=== PATIENT | female | born 1955 | race Caucasian/White ===

== ENCOUNTER 2017-10-20 11:45 | Inpatient (IN) | payer MEDICAID ==
[2017-10-20] MEDS ORDERED: hydrALAZINE HCL 20 MG/ML 1 ML VIAL IVP STA (12:27)
--- NOTE | 2017-10-20 12:27 | ED ---
General Adult HPI - General Chief complaint: Shortness of Breath Stated complaint: SOB Time Seen by Provider: 10/20/17 12:00 Source: patient, RN notes reviewed Mode of arrival: ambulatory Limitations: no limitations - History of Present Illness Initial comments: This is a 8-year-old female with a past medical history significant for congestive heart failure and morbid obesity. Patient comes in today stating that over the last 4 weeks she's had more more difficult to breathing and worsening difficulty breathing when she lies flat. Patient states she can only walk 20 feet and then she's very short of breath. She states felt the baby edema in her legs gets more than normal. Patient denies any fever chills or cough. Patient denies chest pain or palpitations. Patient denies any dark or black or bloody stools. Patient denies headache patient denies lightheadedness dizziness or near-syncopal episode. Patient denies any abdominal pain patient denies any nausea vomiting diarrhea. - Related Data Home Medications Medication Instructions Recorded Confirmed Ergocalciferol (Vitamin D2) 50,000 unit PO FR 08/24/16 10/20/17 [Drisdol] Levothyroxine Sodium [Synthroid] 250 mcg PO DAILY 08/24/16 10/20/17 Naproxen Sodium [Aleve] 220 - 440 mg PO Q8H PRN 08/24/16 10/20/17 traMADol HCL [Ultram] 50 mg PO BID PRN 08/24/16 10/20/17 Valsartan/Hydrochlorothiazide 1 tab PO DAILY 10/20/17 10/20/17 [Valsartan-Hctz 320-25 mg Tab] Allergies Allergy/AdvReac Type Severity Reaction Status Date / Time Beta-Blockers Allergy Dyspnea Verified 10/20/17 13:40 (Beta-Adrenergic Bloc codeine Allergy Nausea & Verified 10/20/17 13:40 Vomiting Iodine and Iodide Containing Allergy Rash/Hives Verified 10/20/17 13:40 Produc Milk Containing Products Allergy Unknown Verified 10/20/17 13:40 soy Allergy Unknown Verified 10/20/17 13:40 tomato Allergy Itching Verified 10/20/17 13:40 wheat Allergy Swelling Verified 10/20/17 13:40 Review of Systems ROS Statement: Those systems with pertinent positive or pertinent negative responses have been documented in the HPI. ROS Other: All systems not noted in ROS Statement are negative. Past Medical History Past Medical History: Asthma, Heart Failure, Hypertension, Thyroid Disorder Additional Past Medical History / Comment(s): svt ef 45%, obesity History of Any Multi-Drug Resistant Organisms: None Reported Past Surgical History: Tonsillectomy Past Psychological History: No Psychological Hx Reported Smoking Status: Never smoker Past Alcohol Use History: None Reported Past Drug Use History: None Reported General Exam - General Exam Comments Initial Comments: GENERAL: Patient is well-developed and well-nourished. Patient is nontoxic and well- hydrated and is in mild distress. ENT: Neck is soft and supple. No significant lymphadenopathy is noted. Oropharynx is clear. Moist mucous membranes. Neck has full range of motion without eliciting any pain. EYES: The sclera were anicteric and conjunctiva were pink and moist. Extraocular movements were intact and pupils were equal round and reactive to light. Eyelids were unremarkable. PULMONARY: Decreased breath sounds left base CARDIOVASCULAR: There is a regular rate and rhythm without any murmurs gallops or rubs. ABDOMEN: Soft and nontender with normal bowel sounds. No palpable organomegaly was noted. There is no palpable pulsatile mass. SKIN: Skin is clear with no lesions or rashes and otherwise unremarkable. NEUROLOGIC: Patient is alert and oriented x3. Cranial nerves II through XII are grossly intact. Motor and sensory are also intact. Normal speech, volume and content. Symmetrical smile. MUSCULOSKELETAL: Normal extremities with adequate strength and full range of motion. 1+ edema tenderness. LYMPHATICS: No significant lymphadenopathy is noted PSYCHIATRIC: Normal psychiatric evaluation. Limitations: no limitations Course Vital Signs 10/20/17 10/20/17 10/20/17 12:02 12:29 12:42 Temperature 98.6 F Pulse Rate 107 H 95 96 Respiratory 24 21 24 Rate Blood Pressure 208/111 210/92 210/92 O2 Sat by Pulse 91 L 93 L 93 L Oximetry 10/20/17 13:30 Temperature Pulse Rate 96 Respiratory 18 Rate Blood Pressure 161/70 O2 Sat by Pulse 98 Oximetry Medical Decision Making - Medical Decision Making EKG shows a normal sinus rhythm with occasional PVC at 90 bpm SD interval is 180 QRS 96 QT interval 370 QTC is 472. Patient's EKG shows no ST segment elevation or depression or T wave abnormalities are noted. Chest x-ray shows pulmonary edema. I gave the patient Lasix and Nitropaste. I spoke with Dr. Montes he agreed to admit the patient admitted the patient I wrote admitting orders to continue the Lasix Nitropaste and consult cardiology. - Lab Data Result diagrams: 10/20/17 12:41 10/20/17 12:41 Lab Results 10/20/17 10/20/17 10/20/17 Range/Units 12:41 12:41 12:41 WBC 11.9 H (3.8-10.6) k/uL RBC 5.43 H (3.80-5.40) m/uL Hgb 15.7 (11.4-16.0) gm/dL Hct 49.4 H (34.0-46.0) % MCV 90.9 (80.0-100.0) fL MCH 28.9 (25.0-35.0) pg MCHC 31.8 (31.0-37.0) g/dL RDW 16.4 H (11.5-15.5) % Plt Count 242 (150-450) k/uL Neutrophils % 78 % Lymphocytes % 11 % Monocytes % 4 % Eosinophils % 5 % Basophils % 1 % Neutrophils # 9.3 H (1.3-7.7) k/uL Lymphocytes # 1.4 (1.0-4.8) k/uL Monocytes # 0.4 (0-1.0) k/uL Eosinophils # 0.6 (0-0.7) k/uL Basophils # 0.1 (0-0.2) k/uL Hypochromasia Slight Anisocytosis Slight PT (9.0-12.0) sec INR (<1.2) APTT (22.0-30.0) sec D-Dimer (<0.60) mg/L FEU Sodium 143 (137-145) mmol/L Potassium 4.7 (3.5-5.1) mmol/L Chloride 98 (98-107) mmol/L Carbon Dioxide 36 H (22-30) mmol/L Anion Gap 9 mmol/L BUN 21 H (7-17) mg/dL Creatinine 0.90 (0.52-1.04) mg/dL Est GFR (MDRD) Af Amer >60 (>60 ml/min/1.73 sqM) Est GFR (MDRD) Non-Af >60 (>60 ml/min/1.73 sqM) Glucose 92 (74-99) mg/dL Calcium 9.3 (8.4-10.2) mg/dL Magnesium 2.1 (1.6-2.3) mg/dL Total Bilirubin 1.3 (0.2-1.3) mg/dL AST 30 (14-36) U/L ALT 43 (9-52) U/L Alkaline Phosphatase 62 (38-126) U/L Total Creatine Kinase 147 H (30-135) U/L CK-MB (CK-2) 2.2 (0.0-2.4) ng/mL CK-MB (CK-2) Rel Index 1.5 Troponin I 0.042 H* (0.000-0.034) ng/mL NT-Pro-B Natriuret Pep pg/mL Total Protein 6.6 (6.3-8.2) g/dL Albumin 3.9 (3.5-5.0) g/dL 10/20/17 10/20/17 Range/Units 12:41 12:41 WBC (3.8-10.6) k/uL RBC (3.80-5.40) m/uL Hgb (11.4-16.0) gm/dL Hct (34.0-46.0) % MCV (80.0-100.0) fL MCH (25.0-35.0) pg MCHC (31.0-37.0) g/dL RDW (11.5-15.5) % Plt Count (150-450) k/uL Neutrophils % % Lymphocytes % % Monocytes % % Eosinophils % % Basophils % % Neutrophils # (1.3-7.7) k/uL Lymphocytes # (1.0-4.8) k/uL Monocytes # (0-1.0) k/uL Eosinophils # (0-0.7) k/uL Basophils # (0-0.2) k/uL Hypochromasia Anisocytosis PT 10.7 (9.0-12.0) sec INR 1.1 (<1.2) APTT 25.1 (22.0-30.0) sec D-Dimer 0.45 (<0.60) mg/L FEU Sodium (137-145) mmol/L Potassium (3.5-5.1) mmol/L Chloride (98-107) mmol/L Carbon Dioxide (22-30) mmol/L Anion Gap mmol/L BUN (7-17) mg/dL Creatinine (0.52-1.04) mg/dL Est GFR (MDRD) Af Amer (>60 ml/min/1.73 sqM) Est GFR (MDRD) Non-Af (>60 ml/min/1.73 sqM) Glucose (74-99) mg/dL Calcium (8.4-10.2) mg/dL Magnesium (1.6-2.3) mg/dL Total Bilirubin (0.2-1.3) mg/dL AST (14-36) U/L ALT (9-52) U/L Alkaline Phosphatase (38-126) U/L Total Creatine Kinase (30-135) U/L CK-MB (CK-2) (0.0-2.4) ng/mL CK-MB (CK-2) Rel Index Troponin I (0.000-0.034) ng/mL NT-Pro-B Natriuret Pep 692 pg/mL Total Protein (6.3-8.2) g/dL Albumin (3.5-5.0) g/dL Critical Care Time Critical Care Time: Yes Total Critical Care Time: 35 Disposition Clinical Impression: Acute pulmonary edema Disposition: ADMITTED IP TO THIS HOSP Referrals: Bull Montes MD [Primary Care Provider] - 1-2 days Time of Disposition: 14:11
[2017-10-20 12:56] LABS: Anisocytosis Slight; Basophils # (A) 0.1 k/uL (0-0.2); Basophils % (A) 1 %; Eosinophils # (A) 0.6 k/uL (0-0.7); Eosinophils % (A) 5 %; HCT 49.4 % (34.0-46.0); HGB 15.7 gm/dL (11.4-16.0); Hypochromasia Slight; Lymphocytes # (A) 1.4 k/uL (1.0-4.8); Lymphocytes % (A) 11 %; MCH 28.9 pg (25.0-35.0); MCHC 31.8 g/dL (31.0-37.0); MCV 90.9 fL (80.0-100.0); Mean Platelet Volume 8.4; Monocytes # (A) 0.4 k/uL (0-1.0); Monocytes % (A) 4 %; Neutrophils # (A) 9.3 k/uL (1.3-7.7); Neutrophils % (A) 78 %; Platelet Count 242 k/uL (150-450); RBC 5.43 m/uL (3.80-5.40); RDW 16.4 % (11.5-15.5); WBC 11.9 k/uL (3.8-10.6)
[2017-10-20 13:03] LABS: ALT 43 U/L (9-52); AST 30 U/L (14-36); Albumin 3.9 g/dL (3.5-5.0); Alkaline Phosphatase 62 U/L (38-126); Anion Gap 9 mmol/L; Blood Urea Nitrogen 21 mg/dL (7-17); Calcium 9.3 mg/dL (8.4-10.2); Carbon Dioxide 36 mmol/L (22-30); Chloride 98 mmol/L (98-107); Glucose 92 mg/dL (74-99); Magnesium 2.1 mg/dL (1.6-2.3); Sodium 143 mmol/L (137-145); Total Bilirubin 1.3 mg/dL (0.2-1.3); Total Protein 6.6 g/dL (6.3-8.2)
[2017-10-20 13:17] LABS: Potassium 4.7 mmol/L (3.5-5.1)
--- NOTE | 2017-10-20 13:18 | XR ---
EXAMINATION TYPE: XR chest 2V DATE OF EXAM: 10/20/2017 COMPARISON: Chest x-ray August 24, 2016 HISTORY: History of hypertension with shortness of breath TECHNIQUE: Frontal and lateral views of the chest are obtained. FINDINGS: There is no focal air space opacity, pleural effusion, or pneumothorax seen. Pierre B disha es in the periphery are noted. The cardiac silhouette size is enlarged with mild central vascular con gestion. The osseous structures are intact. IMPRESSION: Suspect CHF exacerbation as there is cardiomegaly with mild central vascular congestion and interstitial edema felt present on current study.
[2017-10-20 13:33] LABS: Creatine Kinase MB 2.2 ng/mL (0.0-2.4)
[2017-10-20 13:34] LABS: D-Dimer 0.45 mg/L FEU (<0.60); INR 1.1 (<1.2); Partial Thromboplastin Time 25.1 sec (22.0-30.0); Prothrombin Time 10.7 sec (9.0-12.0)
[2017-10-20 13:40] LABS: Troponin I 0.042 ng/mL (0.000-0.034)
[2017-10-20] MEDS ORDERED: FUROSEMIDE 10 MG/ML 10 ML VIAL IV STA (14:00)
[2017-10-20] MEDS ORDERED: NITROGLYCERIN OINT 1 INCH/GM PACKET TOPICAL STA (14:00)
[2017-10-20] MEDS: NITROGLYCERIN OINT 1 INCH/GM PACKET TOPICAL SCH ×2 (16:55→23:52)
[2017-10-20] MEDS ORDERED: traMADol 50 MG TAB PO PRN (18:01)
[2017-10-20] MEDS: FUROSEMIDE 10 MG/ML 4 ML VIAL IV SCH (23:52)
[2017-10-21] MEDS: LEVOTHYROXINE 125 MCG TAB PO SCH (06:16)
--- NOTE | 2017-10-21 08:33 | P.CRDCN ---
History of Present Illness Consult date: 10/21/17 Chief complaint: Shortness of breath History of present illness: This is a pleasant 62-year-old female patient with a past medical history significant for obesity, hypertension, thyroid disorder, was referred to the hospital by her primary care physician for further evaluation and management of congestive heart failure. She was in her usual state of health until about 4 weeks ago when she started experiencing progressive exertional dyspnea. Initially the shortness of breath was with extreme exertion but over the last several days she was short of breath even with minimal activities like washing her face. Also she developed orthopnea. She did not have any symptoms of chest pain or chest discomfort. She did have severe bilateral lower extremities nonpitting edema as well as. The patient is stated that she gained significant amount of weight and approximately she can't about 50 pounds since June. She was told in the past that she has congestive heart failure. No coronary artery disease. Also she was told in the past that she has an SVT and she was seen in the past around 15 years ago by a identity access management architect but since then she did not follow with anybody. In terms of workup, the chest x-ray showed findings consistent with pulmonary vascular congestion and congestive heart failure. The EKG showed sinus rhythm with poor R-wave progression and without any acute ischemic changes. The BNP came in to be around 600. The patient was started on Lasix IV yesterday. I will continue the Lasix IV at this point and continue monitor the kidney function and electrolytes. I'll obtain an echocardiogram was Doppler. Obtain TSH. And follow-up with the patient. Past Medical History Past Medical History: Asthma, Hypertension, Thyroid Disorder Additional Past Medical History / Comment(s): Pt states she has swollen feet and SOB on occasions lately, recently on ABX for tooth infection, bronchospasms , SVT, pt denies hx of CHF, lumbar spinal stenosis, chronic low back pain, arthritis especially in knees, hypothyroidism. History of Any Multi-Drug Resistant Organisms: None Reported Past Surgical History: Tonsillectomy Past Anesthesia/Blood Transfusion Reactions: No Reported Reaction Smoking Status: Never smoker - Past Family History Father Family Medical History: Coronary Artery Disease (CAD), Myocardial Infarction (ID ) Additional Family Medical History / Comment(s): Father at the age of 57yrs from a ID. He had 4 sisters who of MIs in their 60s. Mother Family Medical History: Congestive Heart Failure (CHF), CVA/TIA, Myocardial Infarction (ID) Additional Family Medical History / Comment(s): Mother had cardiac problems. She of CHF/ID at the age of 87yrs. She had several siblings who had CVAs. Medications and Allergies Home Medications Medication Instructions Recorded Confirmed Type Ergocalciferol (Vitamin D2) 50,000 unit PO FR 08/24/16 10/20/17 History [Drisdol] Levothyroxine Sodium [Synthroid] 250 mcg PO DAILY 08/24/16 10/20/17 History Naproxen Sodium [Aleve] 220 - 440 mg PO Q8H PRN 08/24/16 10/20/17 History traMADol HCL [Ultram] 50 mg PO BID PRN 08/24/16 10/20/17 History Valsartan/Hydrochlorothiazide 1 tab PO DAILY 10/20/17 10/20/17 History [Valsartan-Hctz 320-25 mg Tab] Allergies Allergy/AdvReac Type Severity Reaction Status Date / Time Beta-Blockers Allergy Dyspnea Verified 10/20/17 13:40 (Beta-Adrenergic Bloc codeine Allergy Nausea & Verified 10/20/17 13:40 Vomiting Iodine and Iodide Containing Allergy Rash/Hives Verified 10/20/17 13:40 Produc Milk Containing Products Allergy Unknown Verified 10/20/17 13:40 soy Allergy Unknown Verified 10/20/17 13:40 tomato Allergy Itching Verified 10/20/17 13:40 wheat Allergy Swelling Verified 10/20/17 13:40 Physical Exam Vitals: Vital Signs Temp Pulse Pulse Resp BP BP Pulse Ox 10/21/17 08:00 98.4 F 97 20 124/73 91 L 10/21/17 04:30 93 L 10/21/17 04:00 103 H 18 126/74 76 L 10/21/17 01:03 96 10/21/17 01:00 94 L 10/21/17 00:30 92 L 10/21/17 00:00 97.6 F 76 18 140/79 82 L 10/20/17 20:00 96.2 F L 99 18 146/99 91 L 10/20/17 16:00 97.7 F 95 18 126/71 93 L 10/20/17 13:30 96 18 161/70 98 10/20/17 12:42 96 24 210/92 93 L 10/20/17 12:29 95 21 210/92 93 L 10/20/17 12:02 98.6 F 107 H 24 208/111 91 L Intake and Output 10/20/17 10/21/17 10/21/17 22:59 06:59 14:59 Intake Total 418 Balance 418 Intake: Oral 418 Other: Voiding Method Toilet Toilet # Voids 1 Weight 181 kg - Constitutional General appearance: no acute distress - Respiratory Respiratory: bilateral: CTA, diminished - Cardiovascular Rhythm: regular Heart sounds: normal: S1, S2 Results 10/20/17 12:41 10/20/17 12:41 Cardiac Enzymes 10/20/17 10/20/17 Range/Units 12:41 12:41 AST 30 (14-36) U/L CK-MB (CK-2) 2.2 (0.0-2.4) ng/mL Troponin I 0.042 H* (0.000-0.034) ng/mL Coagulation 10/20/17 Range/Units 12:41 PT 10.7 (9.0-12.0) sec APTT 25.1 (22.0-30.0) sec CBC 10/20/17 Range/Units 12:41 WBC 11.9 H (3.8-10.6) k/uL RBC 5.43 H (3.80-5.40) m/uL Hgb 15.7 (11.4-16.0) gm/dL Hct 49.4 H (34.0-46.0) % Plt Count 242 (150-450) k/uL Comprehensive Metabolic Panel 10/20/17 Range/Units 12:41 Sodium 143 (137-145) mmol/L Potassium 4.7 (3.5-5.1) mmol/L Chloride 98 (98-107) mmol/L Carbon Dioxide 36 H (22-30) mmol/L BUN 21 H (7-17) mg/dL Creatinine 0.90 (0.52-1.04) mg/dL Glucose 92 (74-99) mg/dL Calcium 9.3 (8.4-10.2) mg/dL AST 30 (14-36) U/L ALT 43 (9-52) U/L Alkaline Phosphatase 62 (38-126) U/L Total Protein 6.6 (6.3-8.2) g/dL Albumin 3.9 (3.5-5.0) g/dL Current Medications Generic Name Dose Route Start Last Admin Trade Name Jl PRN Reason Stop Dose Admin Ergocalciferol 50,000 unit 10/22/17 12:00 Vitamin D2 PO Fr@1200 MARIZA Furosemide 40 mg 10/21/17 00:00 10/20/17 23:52 Lasix IV 40 mg Q8HR MARIZA Administration Levothyroxine Sodium 250 mcg 10/21/17 06:30 10/21/17 06:16 Synthroid PO 250 mcg 0630 MARIZA Administration Nitroglycerin 1 inch 10/20/17 18:00 10/20/17 23:52 Nitro-Bid Oint TOPICAL 1 inch QID MARIZA Administration Tramadol HCl 50 mg 10/20/17 18:01 Ultram PO BID PRN Pain Intake and Output 10/20/17 10/21/17 10/21/17 22:59 06:59 14:59 Intake Total 418 Balance 418 Intake: Oral 418 Other: Voiding Method Toilet Toilet # Voids 1 Weight 181 kg 10/20/17 12:41 10/20/17 12:41 Assessment and Plan Assessment: Assessment #1 congestive heart failure exacerbation and known if it's due to systolic or diastolic dysfunction. #2 significant weight gain which could be related to CHF or thyroid disorder #3 hypo-thyroidism and the patient is on thyroid replacement therapy. #4 systemic hypertension #5 morbid obesity Plan #1 continue the Lasix IV #2 monitor the kidney function and electrolytes #3 monitor the weight #4 obtain an echocardiogram was Doppler #5 check the TSH #6 follow-up with the patient. Thank you for allowing us participate in the care of this patient.
[2017-10-21] MEDS: NITROGLYCERIN OINT 1 INCH/GM PACKET TOPICAL SCH ×4 (09:43→21:07)
[2017-10-21] MEDS: FUROSEMIDE 10 MG/ML 4 ML VIAL IV SCH ×3 (09:43→23:37)
--- NOTE | 2017-10-21 11:13 | P.HPIM ---
History of Present Illness 62-year-old female presented to family physician with complaints of 4 weeks of increasing shortness of breath dyspnea on exertion positive fluid weight gain patient was sent to the emergency room evaluated and admitted for acute pulmonary edema. History of asthma just occasional inhaler use. History of heart failure unknown systolic or diastolic. History of hypertension and hypothyroidism Review of Systems Constitutional: Reports fatigue, Reports weight gain Cardiovascular: Reports dyspnea on exertion, Reports leg edema Past Medical History Past Medical History: Asthma, Hypertension, Thyroid Disorder Additional Past Medical History / Comment(s): Pt states she has swollen feet and SOB on occasions lately, recently on ABX for tooth infection, bronchospasms , SVT, pt denies hx of CHF, lumbar spinal stenosis, chronic low back pain, arthritis especially in knees, hypothyroidism. History of Any Multi-Drug Resistant Organisms: None Reported Past Surgical History: Tonsillectomy Past Anesthesia/Blood Transfusion Reactions: No Reported Reaction Smoking Status: Never smoker - Past Family History Father Family Medical History: Coronary Artery Disease (CAD), Myocardial Infarction (MO ) Additional Family Medical History / Comment(s): Father at the age of 57yrs from a MO. He had 4 sisters who of MIs in their 60s. Mother Family Medical History: Congestive Heart Failure (CHF), CVA/TIA, Myocardial Infarction (MO) Additional Family Medical History / Comment(s): Mother had cardiac problems. She of CHF/MO at the age of 87yrs. She had several siblings who had CVAs. Medications and Allergies Home Medications Medication Instructions Recorded Confirmed Type Ergocalciferol (Vitamin D2) 50,000 unit PO FR 08/24/16 10/20/17 History [Drisdol] Levothyroxine Sodium [Synthroid] 250 mcg PO DAILY 08/24/16 10/20/17 History Naproxen Sodium [Aleve] 220 - 440 mg PO Q8H PRN 08/24/16 10/20/17 History traMADol HCL [Ultram] 50 mg PO BID PRN 08/24/16 10/20/17 History Valsartan/Hydrochlorothiazide 1 tab PO DAILY 10/20/17 10/20/17 History [Valsartan-Hctz 320-25 mg Tab] Allergies Allergy/AdvReac Type Severity Reaction Status Date / Time Beta-Blockers Allergy Dyspnea Verified 01/03/18 13:40 (Beta-Adrenergic Bloc codeine Allergy Nausea & Verified 10/20/17 13:40 Vomiting Iodine and Iodide Containing Allergy Rash/Hives Verified 10/20/17 13:40 Produc Milk Containing Products Allergy Unknown Verified 10/20/17 13:40 soy Allergy Unknown Verified 10/20/17 13:40 tomato Allergy Itching Verified 10/20/17 13:40 wheat Allergy Swelling Verified 10/20/17 13:40 Physical Exam Vitals: Vital Signs Temp Pulse Pulse Resp BP BP Pulse Ox 10/21/17 08:00 98.4 F 97 20 124/73 91 L 10/21/17 04:30 93 L 10/21/17 04:00 103 H 18 126/74 76 L 10/21/17 01:03 96 10/21/17 01:00 94 L 10/21/17 00:30 92 L 10/21/17 00:00 97.6 F 76 18 140/79 82 L 10/20/17 20:00 96.2 F L 99 18 146/99 91 L 10/20/17 16:00 97.7 F 95 18 126/71 93 L 10/20/17 13:30 96 18 161/70 98 10/20/17 12:42 96 24 210/92 93 L 10/20/17 12:29 95 21 210/92 93 L 10/20/17 12:02 98.6 F 107 H 24 208/111 91 L Intake and Output 10/20/17 10/21/17 10/21/17 22:59 06:59 14:59 Intake Total 418 180 Output Total 0 Balance 418 180 Intake: Oral 418 180 Output: Urine 0 Other: Voiding Method Toilet Toilet Toilet # Voids 1 Weight 181 kg - Constitutional General appearance: morbidly obese - EENT Eyes: PERRLA Ears: bilateral: normal - Neck Neck: normal ROM - Respiratory Respiratory: bilateral: diminished - Cardiovascular Rhythm: regular leg Peripheral Edema: bilateral: 4+ - Gastrointestinal General gastrointestinal: soft - Integumentary Integumentary: normal - Neurologic Neurologic: CNII-XII intact - Musculoskeletal Musculoskeletal: generalized weakness - Psychiatric Psychiatric: A&O x's 3, appropriate affect, intact judgment & insight Results CBC & Chem 7: 10/20/17 12:41 10/20/17 12:41 Labs: Abnormal Lab Results - Last 24 Hours (Table) 10/20/17 10/20/17 10/20/17 Range/Units 12:41 12:41 12:41 WBC 11.9 H (3.8-10.6) k/uL RBC 5.43 H (3.80-5.40) m/uL Hct 49.4 H (34.0-46.0) % RDW 16.4 H (11.5-15.5) % Neutrophils # 9.3 H (1.3-7.7) k/uL Carbon Dioxide 36 H (22-30) mmol/L BUN 21 H (7-17) mg/dL Total Creatine Kinase 147 H (30-135) U/L Troponin I 0.042 H* (0.000-0.034) ng/mL Chest x-ray: report reviewed Thrombosis Risk Factor Assmnt - Choose All That Apply Any of the Below Risk Factors Present?: Yes Each Factor Represents 1 point: Age 41-60 years, Heart failure (<1month), Obesity (BMI >25), Swollen legs (current) Other Risk Factors: No Other congenital or acquired thrombophilia - If yes, enter type in comment: No Thrombosis Risk Factor Assessment Total Risk Factor Score: 4 Thrombosis Risk Factor Assessment Level: Moderate Risk Assessment and Plan Plan: Assessment Acute pulmonary edema Morbid obesity BMI 57.3 Asthma stable Congestive heart failure awaiting echo for diagnosis hypertension Hypothyroidism Plan Cardiology consultation continues on the Lasix Awaiting Results of the 2-D echo
[2017-10-21 16:40] VITALS: BMI 57.2
[2017-10-21 19:15] LABS: Magnesium 2.1 mg/dL (1.6-2.3)
[2017-10-22] MEDS: LEVOTHYROXINE 125 MCG TAB PO SCH (06:21)
[2017-10-22] MEDS: NITROGLYCERIN OINT 1 INCH/GM PACKET TOPICAL SCH ×4 (08:43→21:00)
[2017-10-22] MEDS: FUROSEMIDE 10 MG/ML 4 ML VIAL IV SCH ×3 (08:43→23:04)
[2017-10-22] MEDS ORDERED: ERGOCALCIFEROL 50,000 UNIT CAP PO SCH (12:00)
--- NOTE | 2017-10-22 15:45 | P.PN ---
Subjective Progress Note Date: 10/22/17 Principal diagnosis: Shortness of breath and weight gain This is a pleasant 62-year-old female patient with a past medical history significant for obesity, hypertension, thyroid disorder, was referred to the hospital by her primary care physician for further evaluation and management of congestive heart failure. She was in her usual state of health until about 4 weeks ago when she started experiencing progressive exertional dyspnea. Initially the shortness of breath was with extreme exertion but over the last several days she was short of breath even with minimal activities like washing her face. Also she developed orthopnea. She did not have any symptoms of chest pain or chest discomfort. She did have severe bilateral lower extremities nonpitting edema as well as. The patient is stated that she gained significant amount of weight and approximately she can't about 50 pounds since June. She was told in the past that she has congestive heart failure. No coronary artery disease. Also she was told in the past that she has an SVT and she was seen in the past around 15 years ago by a metal treater but since then she did not follow with anybody.In terms of workup, the chest x-ray showed findings consistent with pulmonary vascular congestion and congestive heart failure. The EKG showed sinus rhythm with poor R-wave progression and without any acute ischemic changes. The BNP came in to be around 600. The patient was started on Lasix IV yesterday.I will continue the Lasix IV at this point and continue monitor the kidney function and electrolytes. I'll obtain an echocardiogram was Doppler. Obtain TSH. And follow-up with the patient. 10/22/2017 Patient seen and examined this morning, weight is down 2 kg today. TSH level came back to be 25.7. Blood pressure 116/90, heart rate in the 90s, 90% on room air. Echocardiogram with Doppler study remains pending. Patient does state she is feeling mildly better today. Objective - Vital Signs Vital signs: Vital Signs Temp 99.4 F 10/22/17 11:53 Pulse 97 10/22/17 11:53 Resp 20 10/22/17 11:53 BP 116/90 10/22/17 11:53 Pulse Ox 90 L 10/22/17 11:53 Intake & Output 10/21/17 10/22/17 10/22/17 18:59 06:59 18:59 Intake Total 420 10 250 Output Total 0 Balance 420 10 250 Weight 180.3 kg 178.5 kg Intake: IV 10 10 0.9 10 10 Oral 420 240 Output: Urine 0 Other: Voiding Method Toilet Toilet Toilet # Voids 3 1 - Exam PHYSICAL EXAMINATION: HEENT: Head is atraumatic, normocephalic. Pupils equal, round. Neck is supple. There is no elevated jugular venous pressure. HEART EXAMINATION: Heart S1, S2 normal. No murmur or gallop heard. CHEST EXAMINATION: Lungs are clear to auscultation and precussion. No chest wall tenderness is noted on palpation or with deep breathing. ABDOMEN: Soft, ,nontender. Bowel sounds are heard. No organomegaly noted. EXTREMITIES: 2+ peripheral pulses with trace evidence of peripheral edema and no calf tenderness noted. NEUROLOGIC patient is awake, alert and oriented -3. . - Labs CBC & Chem 7: 10/20/17 12:41 10/21/17 18:38 Assessment and Plan Plan: Assessment #1 congestive heart failure exacerbation and known if it's due to systolic or diastolic dysfunction. #2 significant weight gain which could be related to CHF or thyroid disorder #3 hypo-thyroidism and the patient is on thyroid replacement therapy. #4 systemic hypertension #5 morbid obesity Plan From cardiology's perspective, we still await results of echocardiogram with Doppler study which we will review. We recommend to continue current dose of IV Lasix, monitoring intake and output along with daily weights. We will also recommend increasing the dose of Synthroid, TSH level was in the range of 25. DNP note has been reviewed, I agree with a documented findings and plan of care. Patient was seen and examined.
--- NOTE | 2017-10-22 16:30 | P.CNPUL ---
History of Present Illness Consult date: 10/22/17 Reason for consult: dyspnea History of present illness: This is a 62-year-old female patient, morbidly obese, with known history of hypothyroidism, we'll came in to the hospital because of worsening shortness of breath and concern of fluid overload. The patient apparently has been progressive getting worse over the past 4-6 weeks. She started experiencing worsening shortness of breath special with exertion. No cervical or orthopnea or paroxysmal nocturnal dyspnea. She also described worsening in lower extremity edema. No chest pain. No cough or sputum production pedal palpitations. No angina. No pleurisy. No hemoptysis. She has chronic history of hypothyroidism and recently she got switched from Synthroid to levothyroxine at a dose of 250 g daily basis. Her TSH during this current admission was found to be quite elevated at 25. Clinically, the patient is quite sluggish. She feels tired all the time pH she feels sleepy and weak and tired and fatigued during the day. She also reports obvious and typical clinical features of obstructive sleep apnea with snoring and witnessed apneas and excessive hypersomnia and sleepiness during the day. Her proBNP level is 600. She has had previous history of dilated cardiomyopathy with no evidence of any pharmacologically induced left ventricular myocardial ischemia. The echocardiogram that was done at the same time showed left ventricular function to be mildly impaired with an ejection fraction 45-50%. The patient had moderate concentric left ventricular hypertrophy. She was also having short runs of SVT. Trops are at 0.042and the ECG is showing normal sinus rhythm with premature ventricular complexes. Review of Systems Constitutional: Reports chronic pain, Reports fatigue, Reports lethargy, Reports weakness, Reports weight gain Eyes: denies blurred vision, denies bulging eye, denies decreased vision Ears: deny: decreased hearing, ear discharge, earache Ears, nose, mouth and throat: Denies headache, Denies sore throat Cardiovascular: Reports decreased exercise tolerance, Reports dyspnea on exertion, Reports shortness of breath Respiratory: Reports dyspnea, Reports sleep apnea Gastrointestinal: Reports constipation Genitourinary: Denies dysuria, Denies hematuria Musculoskeletal: Denies myalgias Musculoskeletal: bilateral: ankle swelling, absent: ankle pain, ankle stiffness Integumentary: Denies pruritus, Denies rash Neurological: Denies numbness, Denies weakness Psychiatric: Denies anxiety, Denies depression Endocrine: Reports cold intolerance, Reports fatigue, Reports weight change Hematologic/Lymphatic: Reports as per HPI Allergic/Immunologic: Reports as per HPI Past Medical History Past Medical History: Asthma, Hypertension, Thyroid Disorder Additional Past Medical History / Comment(s): Mild intermittent bronchial asthma , SVT, mild CHF/dilated cardiomyopathy, spinal stenosis, chronic back pain, degenerative arthritis, hypothyroidism, morbid obesity History of Any Multi-Drug Resistant Organisms: None Reported Past Surgical History: Tonsillectomy Past Anesthesia/Blood Transfusion Reactions: No Reported Reaction Smoking Status: Never smoker - Past Family History Father Family Medical History: Coronary Artery Disease (CAD), Myocardial Infarction (ME ) Additional Family Medical History / Comment(s): Father at the age of 57yrs from a ME. He had 4 sisters who of MIs in their 60s. Mother Family Medical History: Congestive Heart Failure (CHF), CVA/TIA, Myocardial Infarction (ME) Additional Family Medical History / Comment(s): Mother had cardiac problems. She of CHF/ME at the age of 87yrs. She had several siblings who had CVAs. Medications and Allergies Home Medications Medication Instructions Recorded Confirmed Type Ergocalciferol (Vitamin D2) 50,000 unit PO FR 08/24/16 10/20/17 History [Drisdol] Levothyroxine Sodium [Synthroid] 250 mcg PO DAILY 08/24/16 10/20/17 History Naproxen Sodium [Aleve] 220 - 440 mg PO Q8H PRN 08/24/16 10/20/17 History traMADol HCL [Ultram] 50 mg PO BID PRN 08/24/16 10/20/17 History Valsartan/Hydrochlorothiazide 1 tab PO DAILY 10/20/17 10/20/17 History [Valsartan-Hctz 320-25 mg Tab] Allergies Allergy/AdvReac Type Severity Reaction Status Date / Time Beta-Blockers Allergy Dyspnea Verified 10/20/17 13:40 (Beta-Adrenergic Bloc codeine Allergy Nausea & Verified 10/20/17 13:40 Vomiting Iodine and Iodide Containing Allergy Rash/Hives Verified 10/20/17 13:40 Produc soy AdvReac Unknown Verified 10/21/17 14:28 Physical Exam Vitals: Vital Signs Temp Pulse Resp BP BP BP BP 10/22/17 16:07 01/05/18 15:40 98.4 F 93 20 134/72 10/22/17 11:53 99.4 F 97 20 116/90 10/22/17 08:00 98.4 F 101 H 20 114/61 136/100 155/105 10/22/17 04:00 97.6 F 109 H 20 114/68 10/22/17 00:00 97.0 F L 99 20 103/53 10/21/17 20:00 96.8 F L 95 20 119/77 Pulse Ox 10/22/17 16:07 93 L 10/22/17 15:40 91 L 10/22/17 11:53 90 L 10/22/17 08:00 85 L 10/22/17 04:00 90 L 10/22/17 00:00 93 L 10/21/17 20:00 93 L Intake and Output 10/22/17 10/22/17 10/22/17 06:59 14:59 22:59 Intake Total 10 250 10 Balance 10 250 10 Intake: IV 10 10 10 0.9 10 10 10 Oral 240 Other: Voiding Method Toilet Toilet # Voids 1 1 Weight 178.5 kg Morbidly obese, comfortable likely distress.Head exam was generally normal. There was no scleral icterus or corneal arcus. Mucous membranes were moist. Neck is supple and the patient has significant crowding of the posterior oropharynx with a Mallampati class IV.Lungs were clear to auscultation and percussion, and with normal diaphragmatic excursion. No wheezes or rales were noted. Breath sounds are diminished in lung bases bilaterally. No crackles. No wheezes.Cardiac exam revealed the PMI to be normally situated and sized. The rhythm was regular and no extrasystoles were noted during several minutes of auscultation. The first and second heart sounds were normal and physiologic splitting of the second heart sound was noted. There were no murmurs, rubs, clicks, or gallops. Abdomen is obese soft nontender and the patient's organs cannot be accurately palpated. There is no direct tenderness. No rebound tenderness. No guarding.Examination of the extremities revealed easily palpable radial, femoral and pedal pulses. There was no cyanosis, clubbing or edema. The patient has no pitting edema at this point. They may be some pretibial edema related to hypothyroidism. Neurologically the patient is awake and alert and is no focal logical deficits.Examination of the skin revealed no evidence of significant rashes, suspicious appearing nevi or other concerning lesions. Results - Laboratory Findings CBC and BMP: 10/20/17 12:41 10/21/17 18:38 PT/INR, D-dimer PT 10.7 sec (9.0-12.0) 10/20/17 12:41 INR 1.1 (<1.2) 10/20/17 12:41 D-Dimer 0.45 mg/L FEU (<0.60) 10/20/17 12:41 Abnormal lab findings: Abnormal Labs 10/20/17 10/20/17 10/20/17 12:41 12:41 12:41 WBC 11.9 H RBC 5.43 H Hct 49.4 H RDW 16.4 H Neutrophils # 9.3 H Carbon Dioxide 36 H BUN 21 H Total Creatine Kinase 147 H Troponin I 0.042 H* TSH 10/20/17 12:41 WBC RBC Hct RDW Neutrophils # Carbon Dioxide BUN Total Creatine Kinase Troponin I TSH 25.700 H - Diagnostic Findings Chest x-ray: image reviewed Assessment and Plan Plan: Assessment 1 progressive dyspnea. The patient shortness of breath is multifactorial. Noted the patient's been progressively getting weight and she is clinically and chemically hypothyroidism there may be a component of cardiomyopathy which could be also related to her underlying hypothyroidism. She will need further investigation. She has mild intermittent bronchial asthma which is currently inactive and stable. 2 morbid obesity with suspected obstructive sleep apnea on clinical grounds 3 hypertension 4 hypertensive heart disease 5 weight gain secondary to above 6 hypothyroidism and the patient is clinically and chemically hypothyroid Plan We'll need an echocardiogram. Will need diuresis. We'll need to increase her levothyroxine dose to 300 g on a daily basis. Monitor thyroid function test. Outpatient sleep study to rule out underlying obstructive sleep apnea. We'll continue to follow.
[2017-10-22 16:35] LABS: Blood Urea Nitrogen 20 mg/dL (7-17); Calcium 9.4 mg/dL (8.4-10.2); Chloride 90 mmol/L (98-107); Glucose 102 mg/dL (74-99); Potassium 4.2 mmol/L (3.5-5.1); Sodium 142 mmol/L (137-145)
[2017-10-22 16:41] LABS: Anion Gap 8 mmol/L
[2017-10-22 16:46] LABS: Carbon Dioxide 44 mmol/L (22-30)
--- NOTE | 2017-10-22 17:14 | ECHOF ---
Referral Reason:chf MEASUREMENTS -------- HEIGHT: 177.8 cm WEIGHT: 180.5 kg BP: 140/79 RVIDd: 3.6 cm (< 3.3) IVSd: 1.7 cm (0.6 - 1.1) LVIDd: 3.4 cm (3.9 - 5.3) LVPWd: 1.9 cm (0.6 - 1.1) EDV(Teich): 47 ml IVSs: 2.3 cm LVIDs: 2.8 cm LVPWs: 2.5 cm %IVS Thck: 37 % ESV(Teich): 31 ml EF(Teich): 34 % %FS: 16 % SV(Teich): 16 ml LA Diam: 3.6 cm (2.7 - 3.8) LVOT Diam: 2.3 cm LALs A4C: 5.8 cm LAAs A4C: 16.0 cm LAESV A-L A4C: 38 ml LAESV MOD A4C: 36 ml LALs A2C: 5.2 cm LAAs A2C: 13.6 cm LAESV A-L A2C: 30 ml LAESV MOD A2C: 29 ml LAESV(A-L): 36 ml LAESV Index (A-L): 12.75 ml/m HR_2Ch_Q: 14 bpm HR_4Ch_Q: 92 bpm LVVED_2Ch_Q: 83 ml LVVED_4Ch_Q: 136 ml LVVED_BiP_Q: 106 ml LVVES_2Ch_Q: 45 ml LVVES_4Ch_Q: 74 ml LVVES_BiP_Q: 57 ml LVEF_2Ch_Q: 45 % LVEF_4Ch_Q: 46 % LVEF_BiP_Q: 47 % LVSV_2Ch_Q: 38 ml LVSV_4Ch_Q: 62 ml LVSV_BiP_Q: 50 ml LVCO_2Ch_Q: 0.5 l/min LVCO_4Ch_Q: 5.7 l/min LVCO_BiP_Q: 0.7 l/min LVLs_2Ch_Q: 7.7 cm LVLs_4Ch_Q: 7.6 cm LVLd_2Ch_Q: 9.3 cm LVLd_4Ch_Q: 9.0 cm Ao Diam: 3.7 cm (2.0 - 3.7) AV Cusp: 2.2 cm (1.5 - 2.6) MV EXCURSION: 9.371 mm (> 18.000) MV EF SLOPE: 24 mm/s (70 - 150) EPSS: 0.5 cm MV E Bravo: 1.17 m/s MV DecT: 189 ms MV Dec [place]: 6.2 m/s MV A Bravo: 1.30 m/s MV E/A Ratio: 0.90 MV PHT: 55 ms E/E': 19.43 E': 0.06 m/s LVOT Vmax: 1.23 m/s LVOT maxP.07 mmHg LVOT Vmax: 1.25 m/s LVOT Vmean: 0.84 m/s LVOT maxP.25 mmHg LVOT meanP.22 mmHg LVOT Env.Ti: 249 ms LVOT VTI: 21.0 cm AV Vmax: 1.75 m/s AV maxP.25 mmHg ARLENE Vmax, Pt: 3.0 cm ARLENE Vmax: 3.0 cm AV Vmax: 1.78 m/s AV Vmean: 1.25 m/s AV maxP.74 mmHg AV meanP.20 mmHg AV Env.Ti: 254 ms AV VTI: 31.7 cm ARLENE Vmax: 3.0 cm ARLENE (VTI): 2.8 cm ARLENE Vmax, Pt: 2.9 cm FINDINGS -------- Sinus rhythm. This was a technically adequate study. The left ventricular size is normal. There is severe concentric left ventricular hypertrophy. Ove rall left ventricular systolic function is mild-moderately impaired with, an EF between 40 - 45 %. The right ventricle is mildly enlarged. The left atrial size is normal. The right atrium is normal in size. There is mild to moderate aortic valve sclerosis. The mitral valve leaflets are mildly thickened. Mild mitral annular calcification present. The tricuspid valve appears structurally normal. The pulmonic valve was not well visualized. The aortic root is dilated measuring 3.7cm. Normal inferior vena cava with normal inspiratory collapse consistent with estimated right atrial pre ssure of 5 mmHg. There is no pericardial effusion. CONCLUSIONS -------- 1. Sinus rhythm. 2. This was a technically adequate study. 3. The left ventricular size is normal. 4. There is severe concentric left ventricular hypertrophy. 5. Overall left ventricular systolic function is mild-moderately impaired with, an EF between 40 - 45 %. 6. The right ventricle is mildly enlarged. 7. The left atrial size is normal. 8. The right atrium is normal in size. 9. There is mild to moderate aortic valve sclerosis. 10. The mitral valve leaflets are mildly thickened. 11. Mild mitral annular calcification present. 12. The tricuspid valve appears structurally normal. 13. The pulmonic valve was not well visualized. 14. The aortic root is dilated measuring 3.7cm. 15. Normal inferior vena cava with normal inspiratory collapse consistent with estimated right atrial pressure of 5 mmHg. 16. There is no pericardial effusion. FORE[employer] LANGUAGE PROFESSOR: Jennifer Wallis RDCS
[2017-10-22] MEDS ORDERED: ACETAMINOPHEN TAB 500 MG TAB PO PRN (18:09)
[2017-10-22] MEDS ORDERED: NAPROXEN 250 MG TAB PO PRN (18:10)
[2017-10-22 18:55] LABS: T4, Free (Free Thyroxine) 1.03 ng/dL (0.78-2.19)
--- NOTE | 2017-10-22 19:46 | PN ---
PROGRESS NOTE DATE OF SERVICE: 10/22/2017 I am covering for Dr. Bull Montes This 62-year-old woman who was admitted with acute also had significant morbid obesity. The patient also history of asthma and multiple other complex medical issues also. A 2D echo with Doppler was done. Cardiology following the patient closely. The patient has significant hypoxia, especially when lying down. A 2D echo showed ejection fraction about 40-45% at this time. PAST MEDICAL HISTORY: Reviewed. REVIEW OF SYSTEMS: CARDIOVASCULAR: No angina or palpitations. RESPIRATORY: As mentioned earlier. GI: As mentioned earlier. : No numbness, weakness. Central nervous system: No numbness or weakness. MEDICATIONS ARE: vitamin D2, Lasix 40 IV Synthroid, Nitro-Bid and Ultram. PHYSICAL EXAM: Patient is alert, oriented times three, pulse 92, blood pressure 130/72, respiration 20, temperature 98.4, pulse ox 91% on 5 L. HEENT: Conjunctivae normal. Oral mucosa moist. Neck is no jugular venous distention. No carotid bruit. No lymph node enlargement. CARDIOVASCULAR: S1, S2. RESPIRATORY: Breath sounds diminished in the bases. A few scattered rhonchi and crackles. ABDOMEN: Soft, obese, nontender. Legs: Bilateral leg edema. Nervous system: No focal deficits. LABS: WBC 11.7, hemoglobin 15.8, sodium 140, potassium 4.2. TSH is 25.7. ASSESSMENT: 1. Congestive heart failure acute exacerbation with acute on chronic systolic dysfunction ejection fraction 40-45% with acute pulmonary edema as well as acute hypoxic hypercarbic respiratory failure. 2. Possible sleep apnea syndrome with obesity hypoventilation syndrome. 3. Rule out hypothyroidism. 4. Troponin 0.042, indeterminate. 5. Obesity with a BMI of 56.5. 6. Increased WBC. 7. History of hypothyroidism. 8. History of supraventricular tachycardia. 9. History of dilated cardiomyopathy. 10.History of spinal stenosis. 11.History of degenerative joint disease. RECOMMENDATIONS AND DISCUSSION: This 62-year-old woman who presented with multiple complex medical issues, we will monitor the patient closely, continue the current management. Continue current medications. I would add bronchodilators. Closely follow with Cardiology and Dr. Armas. Also obtain continue with supplementation of the thyroid medications. We will obtain a free T3 and free T4 also. Otherwise guarded prognosis because of the multiple complex medical issues and further recommendations to follow. Otherwise repeat labs also has been recommended. Monitor fluid and electrolytes balance closely. MMODL / IJN: [id number] / MTDD
[2017-10-22] MEDS ORDERED: ALBUTEROL NEBULIZED 2.5 MG/3 ML INHALATION SCH (20:00)
[2017-10-22] MEDS ORDERED: IPRATROPIUM 0.5 MG/2.5 ML NEBU INHALATION SCH (20:00)
[2017-10-22] MEDS: IPRATROPIUM-ALBUTEROL 3 ML NEB INHALATION SCH (20:28)
[2017-10-22 20:44] LABS: Appearance,Urine Clear (Clear); Bacteria,Urine Few /hpf; Bilirubin,Urine Negative (Negative); Blood,Urine Negative (Negative); Color,Urine Yellow; Glucose,Urine (UA) Negative (Negative); Hyaline Casts,Urine 3 /lpf (0-2); Ketones,Urine Negative (Negative); Leukocyte Esterase,Urine Moderate (Negative); Mucus,Urine Rare /hpf; Nitrite,Urine Positive (Negative); PH, Urine 5.5 (5.0-8.0); Protein,Urine Negative (Negative); RBC,Urine 1 /hpf (0-5); Specific Gravity,Urine 1.012 (1.001-1.035); Squamous Epithelial Cell,Urine <1 /hpf (0-4); Urobilinogen,Urine <2.0 mg/dL (<2.0); WBC,Urine 13 /hpf (0-5)
[2017-10-22] MEDS: HEPARIN SODIUM,PORCINE 5,000 UNIT/ML 1 ML VIAL SQ SCH (20:45)
[2017-10-23 06:04] LABS: Anisocytosis Slight; Basophils # (A) 0.1 k/uL (0-0.2); Basophils % (A) 1 %; Eosinophils # (A) 0.3 k/uL (0-0.7); Eosinophils % (A) 3 %; HGB 16.1 gm/dL (11.4-16.0); Hypochromasia Marked; Lymphocytes # (A) 1.5 k/uL (1.0-4.8); Lymphocytes % (A) 12 %; MCH 27.8 pg (25.0-35.0); MCHC 28.5 g/dL (31.0-37.0); Macrocytosis Slight; Mean Platelet Volume 8.5; Monocytes # (A) 0.5 k/uL (0-1.0); Monocytes % (A) 4 %; Neutrophils # (A) 9.8 k/uL (1.3-7.7); Neutrophils % (A) 80 %; Platelet Count 206 k/uL (150-450); RDW 16.5 % (11.5-15.5); WBC 12.2 k/uL (3.8-10.6)
[2017-10-23] MEDS: LEVOTHYROXINE 125 MCG TAB PO SCH (06:12)
[2017-10-23] MEDS: PANTOPRAZOLE 40 MG TABLET PO SCH (06:12)
[2017-10-23 06:13] LABS: Blood Urea Nitrogen 19 mg/dL (7-17); Calcium 9.2 mg/dL (8.4-10.2); Chloride 89 mmol/L (98-107); Glucose 122 mg/dL (74-99); Potassium 4.2 mmol/L (3.5-5.1); Sodium 144 mmol/L (137-145)
[2017-10-23 06:14] LABS: HCT 56.5 % (34.0-46.0)
[2017-10-23 06:18] LABS: MCV 97.5 fL (80.0-100.0)
[2017-10-23 06:20] LABS: Anion Gap 9 mmol/L
[2017-10-23 06:36] LABS: Carbon Dioxide 46 mmol/L (22-30)
[2017-10-23] MEDS: HEPARIN SODIUM,PORCINE 5,000 UNIT/ML 1 ML VIAL SQ SCH ×2 (08:26→20:40)
[2017-10-23] MEDS: FUROSEMIDE 10 MG/ML 4 ML VIAL IV SCH (08:30)
[2017-10-23] MEDS: HYDROCHLOROTHIAZIDE 25 MG TAB PO SCH (08:31)
[2017-10-23] MEDS: NITROGLYCERIN OINT 1 INCH/GM PACKET TOPICAL SCH (08:31)
[2017-10-23] MEDS: VALSARTAN 160 MG TAB PO SCH (08:32)
[2017-10-23] MEDS: IPRATROPIUM-ALBUTEROL 3 ML NEB INHALATION SCH ×3 (08:45→20:12)
--- NOTE | 2017-10-23 12:20 | PN ---
PROGRESS NOTE Mrs. Burnett is a 62-year-old female with history of hypothyroidism, who presented with symptoms of progressive dyspnea, was noted to have a significant elevation of her TSH. She has been feeling progressively fatigue and had peripheral edema. She is feeling better today. Her breathing is better. She denies any chest pain, dizziness or palpitation. Apparently she was switched from Synthroid to levothyroxine and according to her, she had similar problem with inability to achieve a euthyroid state with the levothyroxine in the past. She had an echocardiogram revealed ejection fraction 40-45% with [id number] aortic sclerosis. Her medication at this time includes Lasix 40 mg IV q.8 hours, hydrochlorothiazide 25 mg daily, Synthroid, nitro paste, and Diovan 320 mg daily. PHYSICAL EXAMINATION: Blood pressure 116/60 with a heart rate in the 90s. LUNGS: Clear. Regular rate and rhythm S1, S2. No S3. No rub. ABDOMEN: Soft, obese, nontender. Extremities no significant edema. LAB DATA: BUN and creatinine 19 and 1.1. Her carbon dioxide is up to 46. Her hemoglobin is 16.1. Her TSH is 25.7. IMPRESSION: 1. Progressive weight gain and dyspnea, most likely related to hypothyroidism. 2. Hypertension. 3. Worsening renal function. 4. Morbid obesity. 5. Mild cardiomyopathy. RECOMMENDATION: I will stop her IV Lasix and her nitro paste. I will follow her renal function. Continue rest of medical regimen. Follow her blood pressure and depending on progress, further recommendations will be made. MMODL / IJN: [id number] /
--- NOTE | 2017-10-23 12:58 | P.PN ---
Subjective Progress Note Date: 10/23/17 This is a 62-year-old female patient, morbidly obese, with known history of hypothyroidism, we'll came in to the hospital because of worsening shortness of breath and concern of fluid overload. The patient apparently has been progressive getting worse over the past 4-6 weeks. She started experiencing worsening shortness of breath special with exertion. No cervical or orthopnea or paroxysmal nocturnal dyspnea. She also described worsening in lower extremity edema. No chest pain. No cough or sputum production pedal palpitations. No angina. No pleurisy. No hemoptysis. She has chronic history of hypothyroidism and recently she got switched from Synthroid to levothyroxine at a dose of 250 g daily basis. Her TSH during this current admission was found to be quite elevated at 25. Clinically, the patient is quite sluggish. She feels tired all the time pH she feels sleepy and weak and tired and fatigued during the day. She also reports obvious and typical clinical features of obstructive sleep apnea with snoring and witnessed apneas and excessive hypersomnia and sleepiness during the day. Her proBNP level is 600. She has had previous history of dilated cardiomyopathy with no evidence of any pharmacologically induced left ventricular myocardial ischemia. The echocardiogram that was done at the same time showed left ventricular function to be mildly impaired with an ejection fraction 45-50%. The patient had moderate concentric left ventricular hypertrophy. She was also having short runs of SVT. Trops are at 0.042and the ECG is showing normal sinus rhythm with premature ventricular complexes. On 10/23/2017, the patient is being seen for a follow-up H is doing well. No significant diuresis as the patient seems to be at her baseline for now. No obvious signs of fluid overload. No significant shortness of breath. No angina. She has developed some metabolic alkalosis secondary to diuresis. Creatinine is at 1.1. Otherwise there is no other significant electrode abnormalities. The echocardiogram was repeated and it showed a mild to moderate impairment of the LV function with an ejection fraction 40-45%. Otherwise there is mild to moderate aortic valve sclerosis. Aortic root is dilated at 3.7 cm Objective - Vital Signs Vital signs: Vital Signs Temp 97.8 F 10/23/17 12:00 Pulse 75 10/23/17 12:00 Resp 14 10/23/17 12:00 BP 141/66 10/23/17 12:00 Pulse Ox 97 10/23/17 12:00 Intake & Output 10/22/17 10/23/17 10/23/17 18:59 06:59 18:59 Intake Total 440 240 Balance 440 240 Weight 177.3 kg Intake: IV 20 0.9 20 Oral 420 240 Other: Voiding Method Toilet Toilet Toilet # Voids 1 1 1 # Bowel Movements 0 - Exam Morbidly obese, comfortable likely distress.Head exam was generally normal. There was no scleral icterus or corneal arcus. Mucous membranes were moist. Neck is supple and the patient has significant crowding of the posterior oropharynx with a Mallampati class IV.Lungs were clear to auscultation and percussion, and with normal diaphragmatic excursion. No wheezes or rales were noted. Breath sounds are diminished in lung bases bilaterally. No crackles. No wheezes.Cardiac exam revealed the PMI to be normally situated and sized. The rhythm was regular and no extrasystoles were noted during several minutes of auscultation. The first and second heart sounds were normal and physiologic splitting of the second heart sound was noted. There were no murmurs, rubs, clicks, or gallops. Abdomen is obese soft nontender and the patient's organs cannot be accurately palpated. There is no direct tenderness. No rebound tenderness. No guarding.Examination of the extremities revealed easily palpable radial, femoral and pedal pulses. There was no cyanosis, clubbing or edema. The patient has no pitting edema at this point. They may be some pretibial edema related to hypothyroidism. Neurologically the patient is awake and alert and is no focal logical deficits.Examination of the skin revealed no evidence of significant rashes, suspicious appearing nevi or other concerning lesions. - Labs CBC & Chem 7: 10/23/17 05:52 10/23/17 05:52 Labs: Abnormal Lab Results - Last 24 Hours (Table) 10/22/17 10/22/17 10/22/17 Range/Units 16:11 16:11 20:30 WBC (3.8-10.6) k/uL RBC (3.80-5.40) m/uL Hgb (11.4-16.0) gm/dL Hct (34.0-46.0) % MCHC (31.0-37.0) g/dL RDW (11.5-15.5) % Neutrophils # (1.3-7.7) k/uL Chloride 90 L (98-107) mmol/L Carbon Dioxide 44 H* (22-30) mmol/L BUN 20 H (7-17) mg/dL Creatinine (0.52-1.04) mg/dL Glucose 102 H (74-99) mg/dL Free T3 pg/mL 2.6 L (2.8-5.3) pg/ml Urine Nitrite Positive H (Negative) Ur Leukocyte Esterase Moderate H (Negative) Urine WBC 13 H (0-5) /hpf Urine Bacteria Few H (None) /hpf Hyaline Casts 3 H (0-2) /lpf Urine Mucus Rare H (None) /hpf 10/23/17 10/23/17 Range/Units 05:52 05:52 WBC 12.2 H (3.8-10.6) k/uL RBC 5.80 H (3.80-5.40) m/uL Hgb 16.1 H (11.4-16.0) gm/dL Hct 56.5 H (34.0-46.0) % MCHC 28.5 L (31.0-37.0) g/dL RDW 16.5 H (11.5-15.5) % Neutrophils # 9.8 H (1.3-7.7) k/uL Chloride 89 L (98-107) mmol/L Carbon Dioxide 46 H* (22-30) mmol/L BUN 19 H (7-17) mg/dL Creatinine 1.10 H (0.52-1.04) mg/dL Glucose 122 H (74-99) mg/dL Free T3 pg/mL (2.8-5.3) pg/ml Urine Nitrite (Negative) Ur Leukocyte Esterase (Negative) Urine WBC (0-5) /hpf Urine Bacteria (None) /hpf Hyaline Casts (0-2) /lpf Urine Mucus (None) /hpf Assessment and Plan Plan: Assessment 1 progressive dyspnea. The patient shortness of breath is multifactorial. The patient has mild CHF with mild impairment of the left atrial ejection fraction of 40-45%. She has been well diuresis. No other acute issues for now. She has clinical and chemical hypothyroidism and the levothyroxine dose has been adjusted. 2 morbid obesity with suspected obstructive sleep apnea on clinical grounds 3 hypertension 4 hypertensive heart disease 5 weight gain secondary to above 6 hypothyroidism and the patient is clinically and chemically hypothyroid Plan Discontinue the Lasix. Discontinue the antibiotics. Discharge is per medicine. Outpatient follow-up regarding sleep breathing disorder/obstructive sleep apnea.
[2017-10-23] MEDS: LEVOFLOXACIN 500MG-D5W PMX 500 MG in DEXTROSE/WATER 1 100ML.BAG IVPB SCH (16:36)
[2017-10-24 06:02] VITALS: TEMP 97.4
[2017-10-24] MEDS: PANTOPRAZOLE 40 MG TABLET PO SCH (06:26)
[2017-10-24] MEDS: LEVOTHYROXINE 125 MCG TAB PO SCH (06:26)
[2017-10-24 07:13] LABS: Basophils # (A) 0.1 k/uL (0-0.2); Basophils % (A) 1 %; Eosinophils # (A) 0.2 k/uL (0-0.7); Eosinophils % (A) 2 %; HCT 52.6 % (34.0-46.0); HGB 15.2 gm/dL (11.4-16.0); Hypochromasia Marked; Lymphocytes # (A) 1.1 k/uL (1.0-4.8); Lymphocytes % (A) 11 %; MCH 27.6 pg (25.0-35.0); MCHC 28.8 g/dL (31.0-37.0); MCV 95.7 fL (80.0-100.0); Mean Platelet Volume 8.5; Monocytes # (A) 0.4 k/uL (0-1.0); Monocytes % (A) 4 %; Neutrophils # (A) 7.9 k/uL (1.3-7.7); Neutrophils % (A) 81 %; Platelet Count 201 k/uL (150-450); RDW 15.9 % (11.5-15.5); WBC 9.8 k/uL (3.8-10.6)
[2017-10-24 07:22] LABS: Blood Urea Nitrogen 19 mg/dL (7-17); Calcium 9.1 mg/dL (8.4-10.2); Chloride 90 mmol/L (98-107); Glucose 115 mg/dL (74-99); Potassium 4.2 mmol/L (3.5-5.1); Sodium 139 mmol/L (137-145)
[2017-10-24 07:29] LABS: Anion Gap 5 mmol/L
[2017-10-24 07:31] LABS: Carbon Dioxide 44 mmol/L (22-30)
[2017-10-24] MEDS: IPRATROPIUM-ALBUTEROL 3 ML NEB INHALATION SCH ×2 (08:09→12:01)
--- NOTE | 2017-10-24 08:18 | PN ---
PROGRESS NOTE I am covering for Dr. Bull Montes. DATE OF SERVICE: 10/23/17 This 62-year-old woman who was admitted with shortness of breath, history of multifactorial CHF acute exacerbation as well as acute hypoxic respiratory failure and possibly obesity hypoventilation syndrome is closely monitored at this time. Dr. Armas and Cardiology following the patient closely. The patient is unable to tolerate BiPAP according to Respiratory Department. No chest pain. No palpitations. No fever. PHYSICAL EXAM: Alert and oriented times three. Pulse 93, blood pressure 118/77, respirations 18, and temperature 97.2, pulse ox 92% on 5 L. HEENT: Conjunctivae normal. Oral mucosa moist. Neck is no jugular venous distention. No carotid bruit. No lymph node enlargement. Cardiovascular system: S1, S2 muffled. No S3. No S4. RESPIRATORY: Breath sounds diminished in the bases. A few scattered rhonchi and crackles. ABDOMEN: Soft, obese, nontender. Legs are no edema. Central nervous system: No focal deficits. LAB STUDIES: WBC 12.2, hemoglobin 16.2, sodium 144, potassium 4.2, CO2 is 46. UA noted. ASSESSMENT: 1. Congestive heart failure, acute exacerbation with acute on chronic systolic dysfunction ejection fraction 40-45% with acute pulmonary edema as well as acute hypoxic hypercarbic respiratory failure. 2. Possible sleep apnea syndrome with obesity hypoventilation syndrome. 3. Hypothyroidism. 4. Troponin 0.042, indeterminate. 5. Urinary tract infection. 6. Obesity with body mass index 56.5. 7. Increased WBC. 8. Hypercarbia. 9. History of hypothyroidism. 10.History of supraventricular tachycardia. 11.History of dilated cardiomyopathy. 12.History of spinal stenosis. 13.History of degenerative joint disease. RECOMMENDATIONS AND DISCUSSION: Continue current medications, continue with monitoring, symptomatic treatment. I would recommend repeat chest x-ray. Otherwise closely follow with Cardiology and pulmonology. Currently patient is on the creatinine is slightly worsening at this time. The Lasix has been stopped and continue to monitor. Further recommendations to follow. MMODL / IJN: [id number] /
[2017-10-24] MEDS: HEPARIN SODIUM,PORCINE 5,000 UNIT/ML 1 ML VIAL SQ SCH (09:25)
[2017-10-24] MEDS: VALSARTAN 160 MG TAB PO SCH (09:31)
[2017-10-24] MEDS: HYDROCHLOROTHIAZIDE 25 MG TAB PO SCH (09:32)
--- NOTE | 2017-10-24 13:21 | PN ---
PROGRESS NOTE Mrs. Burnett is a 62-year-old female presented with symptoms of progressive dyspnea and was found to have significant elevation of her TSH. She is feeling better this morning. She feels dizzy at times. She denies any chest pain, no palpitation. She denies any nausea. Her left ventricular systolic function revealed mild impairment left ventricular systolic function. She continues to be at this time on hydrochlorothiazide 25 mg daily, Diovan 320 mg daily, Protonix in addition to Synthroid. PHYSICAL EXAMINATION: Blood pressure running in the 140s with a heart rate in the 90s. LUNGS: Clear. HEART: Regular rate and rhythm. S1, S2. No S3. No rub. ABDOMEN: Soft, obese, and nontender. EXTREMITIES: No significant edema. LAB DATA: Lab data revealed a hemoglobin of 15.2. Her carbon dioxide is 44, BUN and creatinine 19 and 0.88. IMPRESSION: 1. Hypothyroidism. 2. Symptoms of dyspnea, stabilizing. 3. Morbid obesity. 4. Mild cardiomyopathy. 5. History of hypertension. RECOMMENDATION: We will continue current therapy. Follow up her renal function. Increase the level of activity. Follow her heart rate and depending on her progress further recommendation will be made. MMODL / IJN: [id number] /
[2017-10-24 13:30] VITALS: BP 112/66; PULSE 89; RESP 18
[2017-10-24] MEDS: LEVOFLOXACIN 500MG-D5W PMX 500 MG in DEXTROSE/WATER 1 100ML.BAG IVPB SCH (14:42)
--- NOTE | 2017-10-25 09:58 | XR ---
EXAMINATION TYPE: XR chest 1V portable DATE OF EXAM: 10/23/2017 COMPARISON: Prior chest x-ray 10/20/2017 HISTORY: Congestive heart failure TECHNIQUE: Single frontal view of the chest is obtained. FINDINGS: Patient is rotated. Heart remains enlarged. No evident airspace disease, pneumothorax, or pleural effusion. There are overlying cardiac leads. Pulmonary vascularity and ignacio are perhaps sligh tly improved. IMPRESSION: Cardiomegaly persists. Follow-up as indicated.
--- NOTE | 2017-10-25 12:04 | DS ---
DISCHARGE SUMMARY FINAL DIAGNOSES: 1. Congestive heart failure acute exacerbation, acute on chronic systolic dysfunction, ejection fraction 40% to 45%, acute upper pulmonary edema on presentation as well as acute hypoxic hypercarbic respiratory failure. 2. Possible sleep apnea syndrome with obesity hypoventilation syndrome. 3. Hypothyroidism. 4. Troponin 0.042, indeterminate. 5. Urinary tract infection. 6. Obesity with body mass index of 56.5. 7. Increased WBC. 8. Hypercarbia. 9. History hypothyroidism. 10.History of supraventricular tachycardia. 11.History of dilated cardiomyopathy. 12.History of spinal stenosis. 13.History of degenerative joint disease. 14.Chronic obstructive pulmonary disease acute exacerbation. DISCHARGE DISPOSITION: The patient will be discharged in a stable condition with guarded prognosis. Discharge cleared by multiple consultants. HISTORY OF PRESENT ILLNESS: This is a 62-year-old woman with a past medical history of multiple medical problems was admitted with shortness of breath. This is a combination of CHF and COPD, treated symptomatically. Otherwise, patient given antibiotics and improved significantly. Patient will be discharged in a stable condition with guarded prognosis. On exam, vitals are stable. CARDIOVASCULAR SYSTEM: S1, S2. RESPIRATORY: A few scattered rhonchi. ABDOMEN: Soft. NERVOUS SYSTEM: No focal deficits. Patient was not wearing a CPAP. Recommend a sleep study and outpatient follow up with Dr. Armas. Diet is cardiac. Follow up with Dr. Bull Montes. Follow up with Dr. Armas and Cardiology as advised. MEDICATIONS: 1. Albuterol 2 puffs q.i.d. and p.r.n. 2. Vitamin D2 fifty thousand on Wednesday. 3. Levaquin 500 mg p.o. daily for 5 days. 4. Synthroid 250 mcg p.o. daily. 5. Aleve p.r.n. 6. Ultram 50 mg b.i.d. p.r.n. 7. Valsartan hydrochlorothiazide 1 p.o. daily. CBC, BMP in the outpatient setting. Once again, the patient will be discharged in a stable condition with a guarded prognosis. MMODL / IJN: [id number] /
== END 2017-10-24 18:34 | disposition home or self-care (01) | DRG 291 ==
LOC: EC 11:45 → 6SEL 14:11
PROVIDERS: ADMIT Family Medicine; ATTEND Family Medicine
PROC: 5A09357 Assistance with Respiratory Ventilation, Less than 24 Consecutive Hours, Continuous Positive Airway Pressure (ICD-10-PCS; principal; 2017-10-22)
DX: I11.0 Hypertensive heart disease with heart failure (principal); J96.01 Acute respiratory failure with hypoxia; J96.02 Acute respiratory failure with hypercapnia; E87.3 Alkalosis; J44.1 Chronic obstructive pulmonary disease with (acute) exacerbation; I47.1 Supraventricular tachycardia; N39.0 Urinary tract infection, site not specified; E66.2 Morbid (severe) obesity with alveolar hypoventilation; Z68.43 Body mass index [BMI] 50.0-59.9, adult; I42.0 Dilated cardiomyopathy; E03.9 Hypothyroidism, unspecified; G47.10 Hypersomnia, unspecified; I35.8 Other nonrheumatic aortic valve disorders; I49.3 Ventricular premature depolarization; I50.23 Acute on chronic systolic (congestive) heart failure; T50.2X5A Adverse effect of carbonic-anhydrase inhibitors, benzothiadiazides and other diuretics, initial encounter; G89.29 Other chronic pain; M19.90 Unspecified osteoarthritis, unspecified site; M48.061 Spinal stenosis, lumbar region without neurogenic claudication; J45.20 Mild intermittent asthma, uncomplicated; R74.8 Abnormal levels of other serum enzymes; Z79.899 Other long term (current) drug therapy; Z91.041 Radiographic dye allergy status; Z91.011 Allergy to milk products; Z88.5 Allergy status to narcotic agent; Z91.018 Allergy to other foods; Z82.49 Family history of ischemic heart disease and other diseases of the circulatory system
CPT/HCPCS: 36415; 71045; 71046; 80048; 80053; 81001; 82550; 82553; 83735; 83880; 84132; 84439; 84443; 84481; 84484; 85025; 85379; 85610; 85730; 87040; 87077; 87086; 87186; 93005; 93306; 94660; 94760; 96374; 96375; 99291

== ENCOUNTER → 2017-12-28 | Outpatient (CLI) | payer MEDICAID ==
--- NOTE | 2017-12-28 18:25 | CONS ---
CONSULTATION REASON FOR CONSULTATION: Sleep apnea. This patient is a morbidly obese 62-year-old female who is being evaluated for obstructive sleep apnea. She is chronically fatigued and sleepy and tired. She lives alone. As such, she does not know if she snores; however, she suspects snoring. She has a dry mouth and she wakes up tired and fatigued during the day. She goes to bed around midnight, wakes up at 7 a.m. in the morning, and she keeps the same schedule for the weekend. She has nocturia and restlessness in the lower extremities. She is in for further advice; she is coming in due to concerns about obstructive sleep apnea. As mentioned, the patient is morbidly obese. She has a BMI of 57. I saw her briefly in the hospital back in October of 2017, as the patient came in for shortness of breath. Back then the patient was having increased dyspnea and fluid overload and her condition was progressively getting worse. She was experiencing worsening shortness of breath. She had developed pedal edema and she was chemically hypothyroid. She was on levothyroxine 250 mcg p.o. daily and her TSH was quite elevated at the time of her admission. The patient's BNP level was 600. She had an echocardiogram and she had some degree of cardiomyopathy with an ejection fraction of 40% to 45%. She had a short run of SVT, from which she recovered. She was placed back on thyroid hormone and she was discharged to be followed up on an outpatient basis. She has chronic metabolic alkalosis on her blood work, and I suspect that she is a CO2 retainer, probably a component of obesity hypoventilation syndrome. PAST MEDICAL HISTORY: 1. Morbid obesity. 2. Hypertension. 3. SVT. 4. CHF with an ejection fraction of 40%. 5. Spinal stenosis with chronic back pain. 6. Degenerative arthritis. 7. History of SARAH-induced cough. 8. Hypertension. SURGICAL HISTORY: Tonsillectomy. DRUG ALLERGIES: 1. IODINE. 2. BETA BLOCKERS. 3. She has developed SARAH-induced cough. OUTPATIENT MEDICATION LIST: Outpatient medication list includes: 1. Synthroid 2.5 mg p.o. daily. 2. Valsartan/hydrochlorothiazide 320/25 one tablet daily. 3. Tramadol 50 mg on a p.r.n. basis. 4. Vitamin D 50,000 units daily. 5. Aleve. SOCIAL HISTORY: Lifetime nonsmoker. No history of alcoholism. No history of IV drugs. FAMILY HISTORY: Both mother and sister with hypertension. No family history of obstructive sleep apnea. REVIEW OF SYSTEMS: A 12-point review of systems was done. Constitutional is positive for chronic pain and chronic fatigue and tiredness and sleepiness. HEENT: Snoring suspected. The patient has also a dry mouth. PULMONARY: Exertional dyspnea, chronic. Occasional wheezing. GI: Chronic constipation. Otherwise negative for nausea, vomiting or heartburn. : Negative for dysuria, frequency, urgency. MUSCULOSKELETAL: Chronic body aches, back pain and chronic edema of lower extremities bilaterally. Skin is negative for any pruritus or rash. NEUROLOGIC: Negative for numbness or weakness. PSYCHIATRIC: Denies anxiety or depression. ENDOCRINE: Positive for hypothyroidism and fluid retention. Hematologic is negative. Skin is negative. PHYSICAL EXAMINATION: HER CURRENT VITALS: BP is 168/123, pulse 100, respirations 20, temperature 97.2. [place] score is 4. BMI is 57.8. Neck size is 18 inches. Weight is 392. Height is 5 feet 9 inches. Saturation is 90% on room air. GENERAL APPEARANCE: Calm, comfortable, obese. Head is atraumatic, normocephalic. Neck is short. Crowding of posterior pharynx. There is no goiter or neck masses. LUNGS: Diminished breath sounds bilaterally. Heart sounds are regular rate and rhythm. Normal S1, S2. No S3, S4. No murmurs. ABDOMEN: Soft, nontender. No organomegaly. EXTREMITIES: Plus one pitting edema. Chronic edema in lower extremities. No cyanosis or clubbing. Skin is negative for any wounds or ulcers. NEURO: Alert and oriented x3. There is no focal neurological deficit. IMPRESSION: 1. Obstructive sleep apnea clinically suspected based on symptoms and anatomic features, currently under investigation. 2. Obesity hypoventilation syndrome suspected. The patient has chronic metabolic alkalosis probably related to chronic hypercapnic respiratory failure related to obesity hypoventilation syndrome. 3. Morbid obesity with a body mass index of 57.8. 4. Congestive heart failure with an ejection fraction around 40%. 5. Hypothyroidism, currently on thyroid hormone supplements. 6. Hypertension. 7. Chronic dyspnea, multifactorial. Rule out underlying obesity hypoventilation syndrome. PLAN: 1. Proceed with a screening polysomnogram. 2. Ask the patient to come into the pulmonary clinic to undergo a full pulmonary function test for further workup regarding her shortness of breath. 3. Continue thyroid hormone replacement. 4. Blood pressure monitoring. The patient's blood pressure was noted to be elevated today, and she was asked to follow up with a shipping helper and primary care. 5. Will continue to follow. GLENIS / VILMAN: [id number] /
== END | disposition home or self-care (01) ==
LOC: SLEEP 08:31
PROVIDERS: ATTEND Internal Medicine Critical Care Medicine
DX: G47.33 Obstructive sleep apnea (adult) (pediatric) (principal); E66.01 Morbid (severe) obesity due to excess calories; I50.9 Heart failure, unspecified; E03.9 Hypothyroidism, unspecified; I10 Essential (primary) hypertension; R06.00 Dyspnea, unspecified; Z68.43 Body mass index [BMI] 50.0-59.9, adult; Z91.048 Other nonmedicinal substance allergy status; Z88.8 Allergy status to other drugs, medicaments and biological substances; Z79.899 Other long term (current) drug therapy; Z79.891 Long term (current) use of opiate analgesic; Z79.1 Long term (current) use of non-steroidal anti-inflammatories (NSAID)
CPT/HCPCS: 99211

== ENCOUNTER → 2018-02-10 | Outpatient (CLI) | payer MEDICAID ==
--- NOTE | 2018-02-11 08:24 | ECHOF ---
Referral Reason:I42.9 Cardiomyopathy MEASUREMENTS -------- HEIGHT: 177.8 cm WEIGHT: 176.9 kg BP: RVIDd: 4.1 cm (< 3.3) IVSd: 1.7 cm (0.6 - 1.1) LVIDd: 3.8 cm (3.9 - 5.3) LVPWd: 1.6 cm (0.6 - 1.1) IVSs: 1.9 cm LVIDs: 3.4 cm LVPWs: 1.9 cm LAESV Index (A-L): 17.89 ml/m Ao Diam: 3.3 cm (2.0 - 3.7) AV Cusp: 1.8 cm (1.5 - 2.6) LA Diam: 3.5 cm (2.7 - 3.8) EPSS: 0.9 cm MV E Bravo: 1.32 m/s MV DecT: 165 ms MV A Bravo: 0.00 m/s MV E/A Ratio: 633.13 RAP: 15.00 mmHg RVSP: 30.98 mmHg MV EF SLOPE: 105.03 mm/s (70 - 150) MV EXCURSION: 1.56 cm (> 18.000) FINDINGS -------- Sinus rhythm. This was a technically adequate study. The left ventricular size is normal. There is severe concentric left ventricular hypertrophy. The re is moderate global hypokinesis of LV . Overall left ventricular systolic function is moderate-se verely impaired with, an EF between 30 - 35 %. The right ventricle is mild to moderately enlarged. Normal LA size by volume 22+/-6 ml/m2. The right atrium is normal in size. There is mild to moderate aortic valve sclerosis. There is no evidence of aortic regurgitation. T here is no evidence of aortic stenosis. The mitral valve leaflets are mildly thickened. Mild mitral annular calcification present. There is trace to mild mitral regurgitation. Trace tricuspid regurgitation present. Right ventricular systolic pressure is normal at < 35 mmHg. There is no evidence of pulmonary hypertension. The pulmonic valve was not well visualized. The aortic root size is normal. The inferior vena cava is dilated with poor inspiratory collapse which is consistent with estimated r ight atrial pressure of 20 mmHg. There is no pericardial effusion. CONCLUSIONS -------- 1. This was a technically adequate study. 2. The left ventricular size is normal. 3. There is severe concentric left ventricular hypertrophy. 4. There is moderate global hypokinesis of LV . 5. Overall left ventricular systolic function is moderate-severely impaired with, an EF between 30 - 35 %. 6. The right ventricle is mild to moderately enlarged. 7. Normal LA size by volume 22+/-6 ml/m2. 8. There is mild to moderate aortic valve sclerosis. 9. The mitral valve leaflets are mildly thickened. 10. Mild mitral annular calcification present. 11. There is trace to mild mitral regurgitation. 12. Trace tricuspid regurgitation present. 13. Right ventricular systolic pressure is normal at < 35 mmHg. 14. There is no evidence of pulmonary hypertension. 15. The pulmonic valve was not well visualized. 16. The aortic root size is normal. 17. The inferior vena cava is dilated with poor inspiratory collapse which is consistent with estimat ed right atrial pressure of 20 mmHg. 18. There is no pericardial effusion. REAL ESTATE DEVELOPMENT MANAGER: Eagle Ludwig RDCS
== END | disposition home or self-care (01) ==
LOC: RADECHMAIN 13:16
PROVIDERS: ATTEND Internal Medicine Interventional Cardiology
DX: I08.0 Rheumatic disorders of both mitral and aortic valves (principal); I99.8 Other disorder of circulatory system; I42.9 Cardiomyopathy, unspecified
CPT/HCPCS: 93306

== ENCOUNTER → 2018-08-05 | Outpatient (CLI) | payer MEDICAID ==
[2018-08-05 10:26] LABS: HCT 51.3 % (34.0-46.0); HGB 16.8 gm/dL (11.4-16.0); MCH 30.6 pg (25.0-35.0); MCHC 32.8 g/dL (31.0-37.0); MCV 93.4 fL (80.0-100.0); Mean Platelet Volume 8.3; Platelet Count 206 k/uL (150-450); RBC 5.49 m/uL (3.80-5.40); RDW 14.1 % (11.5-15.5); WBC 10.4 k/uL (3.8-10.6)
[2018-08-05 10:56] LABS: Potassium 4.8 mmol/L (3.5-5.1)
== END | disposition home or self-care (01) ==
LOC: LABPAT 09:23
PROVIDERS: ATTEND Internal Medicine Interventional Cardiology
DX: Z01.812 Encounter for preprocedural laboratory examination (principal); I10 Essential (primary) hypertension; I48.1 Persistent atrial fibrillation
CPT/HCPCS: 36415; 80051; 82565; 84520; 85027

== ENCOUNTER → 2018-08-09 | Outpatient (CLI) | payer MEDICAID | END | disposition home or self-care (01) | LOC: RADECHMAIN 12:22 | PROVIDERS: ATTEND Internal Medicine Interventional Cardiology | DX: I48.92 Unspecified atrial flutter (principal); I49.3 Ventricular premature depolarization; I48.91 Unspecified atrial fibrillation | CPT/HCPCS: 93225; 93226 ==

== ENCOUNTER → 2018-08-11 | Day surgery (SDC) | payer MEDICAID ==
[2018-08-04 11:53] VITALS: BMI 53.5
[~2018-08-11] MED LIST: ERGOCALCIFEROL 50,000 UNIT CAP PO SCH; FUROSEMIDE 20 MG TAB PO SCH; HEPARIN SODIUM 1,000 UN/ML (10ML VL) IV ONE; HEPARIN SODIUM 1,000 UN/ML (10ML VL) ONE; IOPAMIDOL-370 125ML BTL INJ ONE; LEVOTHYROXINE SODIUM PO SCH; LIDOCAINE 1% INJ 10MG/ML (20 ML MDV) ONE; LIDOCAINE 1% INJ 10MG/ML (20 ML MDV) SQ ONE; METOPROLOL SUCCINATE (ER) 50 MG TAB.ER.24H PO SCH; METOPROLOL TARTRATE 5 MG/5 ML VIAL IVP ONE; NON-FORMULARY DRUG (Valsartan/Hydrochlorothiazide [Valsartan-Hctz 320-25 Mg Tab] 1 TAB) PO SCH; RX INFO: IV CONTRAST WAS GIVEN 1 EACH MISC MISCELLANE PRN; SODIUM CHLORIDE 0.9% 1,000 ML IV ONE; SODIUM CHLORIDE 0.9% 1,000 ML IV SCH; VERAPAMIL 2.5 MG/ML 2 ML AMP ONE; VERAPAMIL SYRINGE (5 MG/10 ML) INTRAARTER ONE; fentaNYL (PF) 50 MCG/ML 2 ML AMP IV ONE; fentaNYL (PF) 50 MCG/ML 2 ML AMP ONE; traMADol 50 MG TAB PO PRN
[2018-08-11 07:03] VITALS: RESP 18; TEMP 97.7
[2018-08-11] MEDS: METOPROLOL TARTRATE 5 MG/5 ML VIAL IVP ONE ×2 (07:50→07:53)
--- NOTE | 2018-08-11 08:48 | CC ---
CARDIAC CATHETERIZATION REPORT Mrs. Burnett is a 63-year-old female known history of hypertension, hyperlipidemia who recently has been complaining of progressive dyspnea on exertion, was noted to be in atrial fibrillation with rapid ventricular response and evidence of severe cardiomyopathy. In view of that, recommendation made regarding cardiac catheterization/ The procedures risks and complications were discussed with the patient who is in full understanding and agreement. PROCEDURE: Patient was brought to laboratory technician in a fasting state after receiving fentanyl and Benadryl and achieving moderate conscious sedated state. Using Xylocaine anesthesia and Seldinger technique, a 6-Polish sheath was introduced in the left radial artery. Selective right and left angiography performed using 5-Polish 4 bend right and left Tanja catheter. Multiple views of the coronary artery including simba-axial views were obtained. Following that, a 5-Polish tight pigtail catheter was introduced in the left ventricle and a 30 degree MURPHY view of the left ventricle was obtained. Following that, the catheter and sheath were removed. Hemostasis was obtained with deployment of a TR band. There was no immediate complication. Patient was returned to her room in stable condition. Of note, the patient received 5000 units of intravenous heparin as well as intra-arterial verapamil. FINDINGS: LEFT MAIN: This is a large-sized vessel, trifurcating into left circumflex, left anterior descending artery, left main coronary artery, has a 10% to 20% plaque distally. LEFT ANTERIOR DESCENDING ARTERY: This is a large-sized vessel, reaching toward the apex, tapers down in the distal third, giving rise to a moderately sized diagonal branch in mid segment after the takeoff of the first septal perforators. There is a 20% to 30% plaque. The rest of the vessel has no high-grade stenosis. RAMUS INTERMEDIUS: This is a large-sized vessel, reaching toward the apical lateral wall. The ramus intermedius has no evidence of high-grade stenosis. LEFT CIRCUMFLEX: This is a nondominant vessel, moderate in caliber giving rise to one obtuse marginal branch. The left circumflex has a 10% to 20% plaque proximally. The rest of the vessel has no high-grade stenosis. RIGHT CORONARY ARTERY: This is a large dominant vessel bifurcating distally to PDA and posterolateral segment and branches. The right coronary artery has mild intimal disease of about 10% in the proximal segment. The rest of the vessel has no high-grade stenosis. LEFT VENTRICULOGRAM: Left ventriculogram is performed in 30 degree MURPHY view and revealed global hypokinesis. The estimated ejection fraction is 35%-40% with no significant mitral regurgitation. HEMODYNAMICS: There was no gradient across the aortic valve. The left ventricular end- diastolic pressure is 16 mmHg. CONCLUSION: 1.Mild triple-vessel coronary artery disease with mild plaque in the distal left main 2. Moderately severely impaired left ventricular systolic function. RECOMMENDATION: In view of finding anatomy, I would recommend to continue with medical therapy and continue anticoagulation with optimizing treatment and attempting to restore sinus mechanism her down the road. Those findings and recommendation were discussed with the patient and her family who are in full understanding and agreement. Duration of procedure is 20 minutes. MMMIREILLEL / VILMAN: [id number] / MTDShanna
[2018-08-11 14:27] VITALS: BP 135/86; PULSE 107
== END | disposition home or self-care (01) ==
LOC: CATHCVL 06:32
PROVIDERS: ATTEND Internal Medicine Interventional Cardiology
DX: I25.10 Atherosclerotic heart disease of native coronary artery without angina pectoris (principal); I48.1 Persistent atrial fibrillation; I42.9 Cardiomyopathy, unspecified; I10 Essential (primary) hypertension; E78.2 Mixed hyperlipidemia; Z79.01 Long term (current) use of anticoagulants; Z79.890 Hormone replacement therapy; Z79.891 Long term (current) use of opiate analgesic; Z79.51 Long term (current) use of inhaled steroids; Z79.899 Other long term (current) drug therapy; Z82.49 Family history of ischemic heart disease and other diseases of the circulatory system; Z88.5 Allergy status to narcotic agent; Z88.8 Allergy status to other drugs, medicaments and biological substances; Z91.09 Other allergy status, other than to drugs and biological substances
CPT/HCPCS: 93458; J2001; J3010; J1644; Q9967

== ENCOUNTER → 2018-09-01 | Day surgery (SDC) | payer MEDICAID ==
[2018-08-30 09:07] VITALS: BMI 53.1
[~2018-09-01] MED LIST changes: +AMIODARONE 200 MG TAB PO SCH; +BENZOCAINE SPRAY 1 CAN MUCOUS MEM ONE; -HEPARIN SODIUM 1,000 UN/ML (10ML VL) IV ONE; -HEPARIN SODIUM 1,000 UN/ML (10ML VL) ONE; -IOPAMIDOL-370 125ML BTL INJ ONE; +LACTATED RINGERS 1,000 ML IV SCH; +LIDOCAINE 1% 20 ML VIAL (10MG/ML) FOR IV START INTRADERMA PRN; -LIDOCAINE 1% INJ 10MG/ML (20 ML MDV) SQ ONE; -METOPROLOL TARTRATE 5 MG/5 ML VIAL IVP ONE; +MIDAZOLAM 2 MG/2 ML VIAL IV PRN; +MIDAZOLAM 2 MG/2 ML VIAL ONE; +POTASSIUM PO SCH; +PROPOFOL 10 MG/ML 20 ML VIAL IV ONE; +RIVAROXABAN 20 MG TAB PO SCH; -RX INFO: IV CONTRAST WAS GIVEN 1 EACH MISC MISCELLANE PRN; -SODIUM CHLORIDE 0.9% 1,000 ML IV ONE; -VERAPAMIL 2.5 MG/ML 2 ML AMP ONE; -VERAPAMIL SYRINGE (5 MG/10 ML) INTRAARTER ONE; -fentaNYL (PF) 50 MCG/ML 2 ML AMP IV ONE; -fentaNYL (PF) 50 MCG/ML 2 ML AMP ONE
[2018-09-01 08:13] VITALS: TEMP 98
[2018-09-01 08:34] VITALS: RESP 18
[2018-09-01 09:44] VITALS: BP 120/71; PULSE 90
--- NOTE | 2018-09-01 11:12 | ECHOT ---
TRANSESOPHAGEAL ECHOCARDIOGRAM INDICATION: Evaluation of left atrial appendage. PROCEDURE: After explaining the procedure to the patient, its risks and complication, blood pressure, heart rate, O2 saturation was monitored. The throat was sprayed Cetacaine. She received sedation per the Anesthesia Department. The probe was introduced into the esophagus without difficulty. Images were obtained. Following that, the probe was removed. There was no immediate complication. FINDINGS: Left atrial size is dilated. Left atrial appendage is normal. Spontaneous contrast was noted. The left ventricular size is normal. There is evidence of global hypokinesis, estimated ejection fraction of 40%. The aortic valve revealed mild fibrocalcific change with aortic cusp with preserved opening. Mitral valve mild calcification was noted. Tricuspid valve appears to be normal. Contrast bubble study revealed no evidence of shunting across the interatrial septum. No pericardial effusion was noted. The descending thoracic aorta appears to be normal. Doppler pulse wave and color Doppler obtained revealed mild mitral and tricuspid regurgitation. There was no shunting across the interatrial septum. MMODL / IJN: [id number] /
--- NOTE | 2018-09-01 14:21 | CE ---
CARDIAC ELECTROPHYSIOLOGY REPORT INDICATION: Atrial fibrillation. PROCEDURE: After explaining the procedure the patient, its risks and complication, blood pressure, heart rate, O2 saturation was monitored and after obtaining a transesophageal echocardiogram and obtaining sedated state per Anesthesia Department, a synchronized biphasic cardioversion with using 200 joules was performed with rastafarian of normal sinus rhythm. There was no immediate complication. GLENIS / MARLENE: [id number] /
== END | disposition home or self-care (01) ==
LOC: CATHCVL 06:03
PROVIDERS: ATTEND Internal Medicine Interventional Cardiology
DX: I48.1 Persistent atrial fibrillation (principal); I08.1 Rheumatic disorders of both mitral and tricuspid valves; I42.8 Other cardiomyopathies; I10 Essential (primary) hypertension; E78.2 Mixed hyperlipidemia; I25.10 Atherosclerotic heart disease of native coronary artery without angina pectoris; Z91.048 Other nonmedicinal substance allergy status; Z82.49 Family history of ischemic heart disease and other diseases of the circulatory system; Z79.01 Long term (current) use of anticoagulants; Z79.890 Hormone replacement therapy; Z79.891 Long term (current) use of opiate analgesic; Z79.899 Other long term (current) drug therapy; Z88.5 Allergy status to narcotic agent; Z88.8 Allergy status to other drugs, medicaments and biological substances
CPT/HCPCS: 93312; 93320; 93325; 92960; J2250; J2001; J2704

== ENCOUNTER → 2018-12-21 | Outpatient (CLI) | payer MEDICAID ==
--- NOTE | 2018-12-28 15:29 | HM ---
HOLTER MONITOR REPORT Patient was monitored for 24 hours. Baseline rhythm is atrial flutter with variable conduction. The average rate 106 beats per minute, minimum 68, maximum 137 beats per minute. Ventricular ectopic activity was present in the form of occasional single PVCs with rare couplets. No significant pauses were noted. No diary was available. CONCLUSION: 1. Atrial flutter at baseline rhythm. 2. Rare ventricular ectopic activity. 3. No diary was available. MMODL / IJN: [id number] /
== END | disposition home or self-care (01) ==
LOC: RADECHMAIN 12:29
PROVIDERS: ATTEND Internal Medicine Interventional Cardiology
DX: I48.1 Persistent atrial fibrillation (principal)
CPT/HCPCS: 93225; 93226

== ENCOUNTER 2019-06-18 14:57 | Emergency (ER) | payer MEDICAID ==
[2019-06-18 15:05] VITALS: RESP 18; TEMP 99.1
--- NOTE | 2019-06-18 15:58 | ED ---
Female Urogenital HPI - General Chief complaint: Vaginal Bleeding Stated complaint: Vaginal Bleeding Time Seen by Provider: 06/18/19 15:09 Source: patient Mode of arrival: wheelchair Limitations: no limitations - History of Present Illness Initial comments: Patient is a 64-year-old female, with past medical history of hypertension and thyroid disorder, presenting to the emergency Department with complaints of vaginal bleeding since this morning. Patient states she is currently on xarelto for A. fib and is concerned that the bleeding is not stopping. Patient states she is going through a pad approximately every hour. Patient states she has gone through to her clothes on 2 to 3 occasions. Patient denies fever, chills, belly pain, vaginal pain or discomfort, shortness of breath, chest pain. Patient states she has not had a menstrual cycle in over 5 years. Patient has no other complaints at this time. Upon arrival to ER, BP is 179/73. Rest of vital signs are stable , afebrile. - Related Data Home Medications Medication Instructions Recorded Confirmed Ergocalciferol (Vitamin D2) 50,000 unit PO FR 08/24/16 09/01/18 [Drisdol] traMADol HCL [Ultram] 50 mg PO Q8H PRN 08/24/16 09/01/18 Valsartan/Hydrochlorothiazide 1 tab PO DAILY 10/20/17 09/01/18 [Valsartan-Hctz 320-25 mg Tab] Furosemide [Lasix] 20 mg PO DAILY 08/04/18 09/01/18 Levothyroxine Sodium [Synthroid] 235 mcg PO DAILY 08/04/18 09/01/18 Rivaroxaban [Xarelto] 20 mg PO DAILY 08/04/18 09/01/18 Metoprolol Succinate [Toprol Xl] 50 mg PO BID 08/30/18 09/01/18 Potassium (Unknown Dosage) 1 tablet PO DAILY 08/30/18 09/01/18 Previous Rx's Medication Instructions Recorded Amiodarone [Cordarone] 200 mg PO BID #180 tab 09/01/18 Allergies Allergy/AdvReac Type Severity Reaction Status Date / Time adhesive tape Allergy Rash/Hives Verified 06/18/19 15:05 codeine Allergy Nausea & Verified 06/18/19 15:05 Vomiting Iodine and Iodide Containing Allergy Rash/Hives Verified 06/18/19 15:05 Produc wheat Allergy Unknown Verified 06/18/19 15:05 milk AdvReac CONGESTION Verified 06/18/19 15:05 soy AdvReac Unknown Verified 06/18/19 15:05 Review of Systems ROS Statement: Those systems with pertinent positive or pertinent negative responses have been documented in the HPI. ROS Other: All systems not noted in ROS Statement are negative. Past Medical History Past Medical History: Asthma, Hypertension, Osteoarthritis (OA), Thyroid Disorder Additional Past Medical History / Comment(s): Mild intermittent bronchial asthma, SVT, mild CHF/dilated cardiomyopathy, spinal stenosis, chronic back pain, degenerative arthritis, hypothyroidism, morbid obesity History of Any Multi-Drug Resistant Organisms: None Reported Past Surgical History: Heart Catheterization, Tonsillectomy Past Anesthesia/Blood Transfusion Reactions: Family History of Problems w/ Anesthesia Additional Past Anesthesia/Blood Transfusion Reaction / Comment(s): PATIENT STATES HER BROTHER HAD A HISTORY OF PROBLEM WITH ANESTHESIA -HALOTHANE HAD JAUNDICE -SWELLING OF LIVER AND FEVER -MANY YEARS AGO" STATES HAD A COUSIN WHO FROM A REACTION FROM ANESTHESIA " Past Psychological History: No Psychological Hx Reported Smoking Status: Never smoker Past Alcohol Use History: None Reported Past Drug Use History: None Reported - Past Family History Father Family Medical History: Coronary Artery Disease (CAD), Myocardial Infarction (CA) Additional Family Medical History / Comment(s): Father at the age of 57yrs from a CA. He had 4 sisters who of MIs in their 60s. Mother Family Medical History: Congestive Heart Failure (CHF), CVA/TIA, Myocardial Infarction (CA) Additional Family Medical History / Comment(s): Mother had cardiac problems. She of CHF/CA at the age of 81yrs. She had several siblings who had CVAs. General Exam - General Exam Comments Initial Comments: GENERAL: Well-appearing, well-nourished and in no acute distress. HEAD: Atraumatic, normocephalic. EYES: Pupils equal round and reactive to light, extraocular movements intact, sclera anicteric, conjunctiva are normal. ENT: TMs normal, nares patent, oropharynx clear without exudates. Moist mucous membranes. NECK: Normal range of motion, supple without lymphadenopathy or JVD. LUNGS: Breath sounds clear to auscultation bilaterally and equal. No wheezes rales or rhonchi. HEART: Regular rate and rhythm without murmurs, rubs or gallops. ABDOMEN: Soft, nontender, normoactive bowel sounds. No guarding, no rebound. No masses appreciated. EXTREMITIES: Normal range of motion, no pitting or edema. No clubbing or cyanosis. NEUROLOGICAL: Cranial nerves II through XII grossly intact. Normal speech, normal gait. PSYCH: Normal mood, normal affect. SKIN: Warm, Dry, normal turgor, no rashes or lesions noted. Limitations: no limitations External exam: Present: normal external exam. Absent: erythema, swelling, lesions, lacerations Speculum exam: Present: vaginal bleeding. Absent: cervical discharge, laceration Course Vital Signs 06/18/19 06/18/19 06/18/19 15:02 16:37 18:27 Temperature 99.1 F Pulse Rate 77 84 96 Respiratory 18 18 18 Rate Blood Pressure 179/73 118/84 142/88 O2 Sat by Pulse 96 97 97 Oximetry Medical Decision Making - Medical Decision Making Patient is a 64-year-old female presenting with vaginal bleeding since this morning. Patient does take Xarelto for A. fib and got concerned when the bleeding would not stop. Patient has not had a menstrual cycle in over 5 years. Patient denies fever, chills, abdominal pain, burning with urination. On exam patient does have a vaginal bleeding, no signs of lacerations. Rest of physical exam is within normal limits. CBC shows slight leukocytosis at 12.7. CMP within normal limits. Coags are normal TSH is 0.303. UA shows large amount of blood, no signs of infection. Transvaginal ultrasound was obtained shows abnormal endometrial stripe thickening for postmenopausal female at 1.7 cm. Recommend further evaluation with ROOM DESIGNER. These findings were discussed with patient and she agrees a plan to care. Patient will call ROOM DESIGNER on Wednesday. Return parameters were discussed with the patient she verbalized understanding. Patient is stable for discharge at this time. Case discussed with Dr. May. - Lab Data Result diagrams: 06/18/19 15:45 06/18/19 15:45 Lab Results 06/18/19 06/18/19 06/18/19 Range/Units 15:45 15:45 15:45 WBC 12.7 H (3.8-10.6) k/uL RBC 4.90 (3.80-5.40) m/uL Hgb 15.7 (11.4-16.0) gm/dL Hct 45.3 (34.0-46.0) % MCV 92.5 (80.0-100.0) fL MCH 32.0 (25.0-35.0) pg MCHC 34.6 (31.0-37.0) g/dL RDW 15.0 (11.5-15.5) % Plt Count 236 (150-450) k/uL Neutrophils % 74 % Lymphocytes % 16 % Monocytes % 3 % Eosinophils % 5 % Basophils % 1 % Neutrophils # 9.5 H (1.3-7.7) k/uL Lymphocytes # 2.0 (1.0-4.8) k/uL Monocytes # 0.4 (0-1.0) k/uL Eosinophils # 0.6 (0-0.7) k/uL Basophils # 0.1 (0-0.2) k/uL PT 10.1 (9.0-12.0) sec INR 0.9 (<1.2) APTT 27.9 (22.0-30.0) sec Sodium 141 (137-145) mmol/L Potassium 4.1 (3.5-5.1) mmol/L Chloride 105 (98-107) mmol/L Carbon Dioxide 28 (22-30) mmol/L Anion Gap 8 mmol/L BUN 22 H (7-17) mg/dL Creatinine 1.06 H (0.52-1.04) mg/dL Est GFR (CKD-EPI)AfAm 65 (>60 ml/min/1.73 sqM) Est GFR (CKD-EPI)NonAf 57 (>60 ml/min/1.73 sqM) Glucose 122 H (74-99) mg/dL Calcium 9.4 (8.4-10.2) mg/dL Total Bilirubin 0.7 (0.2-1.3) mg/dL AST 23 (14-36) U/L ALT 20 (9-52) U/L Alkaline Phosphatase 101 (38-126) U/L Total Protein 7.2 (6.3-8.2) g/dL Albumin 4.3 (3.5-5.0) g/dL TSH 0.303 L (0.465-4.680) mIU/L Free T4 1.93 (0.78-2.19) ng/dL Urine Color Urine Appearance (Clear) Urine pH (5.0-8.0) Ur Specific [place] (1.001-1.035) Urine Protein (Negative) Urine Glucose (UA) (Negative) Urine Ketones (Negative) Urine Blood (Negative) Urine Nitrite (Negative) Urine Bilirubin (Negative) Urine Urobilinogen (<2.0) mg/dL Ur Leukocyte Esterase (Negative) Urine RBC (0-5) /hpf Urine WBC (0-5) /hpf Ur Squamous Epith Cells (0-4) /hpf Urine Mucus (None) /hpf 06/18/19 Range/Units 16:30 WBC (3.8-10.6) k/uL RBC (3.80-5.40) m/uL Hgb (11.4-16.0) gm/dL Hct (34.0-46.0) % MCV (80.0-100.0) fL MCH (25.0-35.0) pg MCHC (31.0-37.0) g/dL RDW (11.5-15.5) % Plt Count (150-450) k/uL Neutrophils % % Lymphocytes % % Monocytes % % Eosinophils % % Basophils % % Neutrophils # (1.3-7.7) k/uL Lymphocytes # (1.0-4.8) k/uL Monocytes # (0-1.0) k/uL Eosinophils # (0-0.7) k/uL Basophils # (0-0.2) k/uL PT (9.0-12.0) sec INR (<1.2) APTT (22.0-30.0) sec Sodium (137-145) mmol/L Potassium (3.5-5.1) mmol/L Chloride (98-107) mmol/L Carbon Dioxide (22-30) mmol/L Anion Gap mmol/L BUN (7-17) mg/dL Creatinine (0.52-1.04) mg/dL Est GFR (CKD-EPI)AfAm (>60 ml/min/1.73 sqM) Est GFR (CKD-EPI)NonAf (>60 ml/min/1.73 sqM) Glucose (74-99) mg/dL Calcium (8.4-10.2) mg/dL Total Bilirubin (0.2-1.3) mg/dL AST (14-36) U/L ALT (9-52) U/L Alkaline Phosphatase (38-126) U/L Total Protein (6.3-8.2) g/dL Albumin (3.5-5.0) g/dL TSH (0.465-4.680) mIU/L Free T4 (0.78-2.19) ng/dL Urine Color Red Urine Appearance Cloudy H (Clear) Urine pH 5.5 (5.0-8.0) Ur Specific [place] 1.026 (1.001-1.035) Urine Protein 1+ H (Negative) Urine Glucose (UA) Negative (Negative) Urine Ketones Trace H (Negative) Urine Blood Large H (Negative) Urine Nitrite Negative (Negative) Urine Bilirubin Negative (Negative) Urine Urobilinogen 4.0 (<2.0) mg/dL Ur Leukocyte Esterase Small H (Negative) Urine RBC >182 H (0-5) /hpf Urine WBC 6 H (0-5) /hpf Ur Squamous Epith Cells 2 (0-4) /hpf Urine Mucus Occasional H (None) /hpf Disposition Clinical Impression: Dysfunctional uterine bleeding Disposition: HOME SELF-CARE Condition: Stable Instructions (If sedation given, give patient instructions): Dysfunctional Uterine Bleeding (ED) Additional Instructions: Please return to the Emergency Department if symptoms worsen or any other concerns. Follow-up with [facility] as discussed. Is patient prescribed a controlled substance at d/c from ED?: No Referrals: Bull Montes MD [Primary Care Provider] - 1-2 days
[2019-06-18 15:59] LABS: Basophils # (A) 0.1 k/uL (0-0.2); Basophils % (A) 1 %; Eosinophils # (A) 0.6 k/uL (0-0.7); Eosinophils % (A) 5 %; HCT 45.3 % (34.0-46.0); HGB 15.7 gm/dL (11.4-16.0); Lymphocytes % (A) 16 %; MCHC 34.6 g/dL (31.0-37.0); MCV 92.5 fL (80.0-100.0); Mean Platelet Volume 8.8; Monocytes # (A) 0.4 k/uL (0-1.0); Monocytes % (A) 3 %; Neutrophils # (A) 9.5 k/uL (1.3-7.7); Neutrophils % (A) 74 %; Platelet Count 236 k/uL (150-450); WBC 12.7 k/uL (3.8-10.6)
[2019-06-18 16:09] LABS: Albumin 4.3 g/dL (3.5-5.0); Calcium 9.4 mg/dL (8.4-10.2); Potassium 4.1 mmol/L (3.5-5.1); Total Bilirubin 0.7 mg/dL (0.2-1.3); Total Protein 7.2 g/dL (6.3-8.2)
[2019-06-18 16:15] LABS: INR 0.9 (<1.2); Partial Thromboplastin Time 27.9 sec (22.0-30.0); Prothrombin Time 10.1 sec (9.0-12.0)
[2019-06-18 17:14] LABS: Appearance,Urine Cloudy (Clear); Bilirubin,Urine Negative (Negative); Blood,Urine Large (Negative); Color,Urine Red; Glucose,Urine (UA) Negative (Negative); Ketones,Urine Trace (Negative); Leukocyte Esterase,Urine Small (Negative); Mucus,Urine Occasional /hpf; Nitrite,Urine Negative (Negative); PH, Urine 5.5 (5.0-8.0); Protein,Urine 1+ (Negative); RBC,Urine >182 /hpf (0-5); Specific Gravity,Urine 1.026 (1.001-1.035); Squamous Epithelial Cell,Urine 2 /hpf (0-4)
--- NOTE | 2019-06-18 17:29 | US ---
EXAMINATION TYPE: US transvaginal DATE OF EXAM: 06/18/2019 COMPARISON: NONE CLINICAL HISTORY: 64-year-old female bleeding. Pt states vaginal bleeding that started this AM, patie nt on blood thinners TECHNIQUE: Transvaginal sonographic images of the pelvis were acquired. FINDINGS: Date of LMP: AGE 59 EXAM MEASUREMENTS: Uterus: 7.9 x 4.3 x 6.0 cm Endometrial Stripe: 1.7 cm SUPERVISOR SEWING ROOM NOTES: Pt severely, morbidly obese/ limited exam 1. Uterus: Retroverted difficult to visualize due to pt's large size 2. Endometrium: thickened 3. Right Ovary: Obscured by overlying bowel gas 4. Left Ovary: Obscured by overlying bowel gas 5. Bilateral Adnexa: wnl 6. Posterior cul-de-sac: wnl IMPRESSION: Abnormal endometrial stripe thickening for a postmenopausal female at 1.7 cm. Differential considerat ions include endometrial hyperplasia, polyps, or endometrial carcinoma. Appropriate further evaluatio n recommended.
[2019-06-18 17:35] LABS: T4, Free (Free Thyroxine) 1.93 ng/dL (0.78-2.19)
[2019-06-18 18:28] VITALS: BP 142/88; PULSE 96
== END 2019-06-18 18:27 | disposition home or self-care (01) ==
LOC: EC 14:57
DX: N93.8 Other specified abnormal uterine and vaginal bleeding (principal); D72.829 Elevated white blood cell count, unspecified; I48.91 Unspecified atrial fibrillation; R93.89 Abnormal findings on diagnostic imaging of other specified body structures; N95.9 Unspecified menopausal and perimenopausal disorder; E03.9 Hypothyroidism, unspecified; E66.01 Morbid (severe) obesity due to excess calories; I50.9 Heart failure, unspecified; I11.0 Hypertensive heart disease with heart failure; I43 Cardiomyopathy in diseases classified elsewhere; Z79.01 Long term (current) use of anticoagulants; Z79.890 Hormone replacement therapy; Z79.899 Other long term (current) drug therapy; Z88.5 Allergy status to narcotic agent; Z91.011 Allergy to milk products; Z91.041 Radiographic dye allergy status; Z91.018 Allergy to other foods; Z91.048 Other nonmedicinal substance allergy status; Z68.43 Body mass index [BMI] 50.0-59.9, adult; Z95.5 Presence of coronary angioplasty implant and graft
CPT/HCPCS: 36415; 76830; 80053; 81001; 84439; 84443; 85025; 85610; 85730; 99284

== ENCOUNTER → 2019-07-03 | Outpatient (CLI) | payer MEDICAID ==
[2019-07-03 10:09] LABS: Basophils # (A) 0.1 k/uL (0-0.2); Basophils % (A) 1 %; Eosinophils # (A) 0.6 k/uL (0-0.7); Eosinophils % (A) 6 %; HCT 39.9 % (34.0-46.0); HGB 13.1 gm/dL (11.4-16.0); Lymphocytes % (A) 18 %; MCH 30.1 pg (25.0-35.0); MCHC 32.9 g/dL (31.0-37.0); MCV 91.4 fL (80.0-100.0); Monocytes # (A) 0.4 k/uL (0-1.0); Monocytes % (A) 4 %; Neutrophils # (A) 7.9 k/uL (1.3-7.7); Neutrophils % (A) 71 %; Platelet Count 245 k/uL (150-450); RBC 4.37 m/uL (3.80-5.40); RDW 13.4 % (11.5-15.5); WBC 11.2 k/uL (3.8-10.6)
== END | disposition home or self-care (01) ==
LOC: LABPAT 09:05
PROVIDERS: ATTEND Obstetrics & Gynecology
DX: Z01.812 Encounter for preprocedural laboratory examination (principal); Z01.818 Encounter for other preprocedural examination; N95.0 Postmenopausal bleeding; I10 Essential (primary) hypertension
CPT/HCPCS: 36415; 85025

== ENCOUNTER 2019-07-04 06:32 | Day surgery (SDC) | payer MEDICAID ==
[2019-06-30 15:47] VITALS: BMI 53.1
[~2019-07-04 06:32] MED LIST changes: -AMIODARONE 200 MG TAB PO SCH; -BENZOCAINE SPRAY 1 CAN MUCOUS MEM ONE; +DEXAMETHASONE SOD PHOSPHATE 10 MG/ML 1 ML VIAL IV ONE; -ERGOCALCIFEROL 50,000 UNIT CAP PO SCH; -FUROSEMIDE 20 MG TAB PO SCH; +HYDROmorphone 0.5 MG/0.5 ML SYRINGE IVP PRN; +KETOROLAC 30 MG/ML 1 ML VIAL IVP SCH; -LEVOTHYROXINE SODIUM PO SCH; -LIDOCAINE 1% INJ 10MG/ML (20 ML MDV) ONE; +METOCLOPRAMIDE 5 MG/ML 2 ML VIAL IVP PRN; -METOPROLOL SUCCINATE (ER) 50 MG TAB.ER.24H PO SCH; -MIDAZOLAM 2 MG/2 ML VIAL IV PRN; -MIDAZOLAM 2 MG/2 ML VIAL ONE; -NON-FORMULARY DRUG (Valsartan/Hydrochlorothiazide [Valsartan-Hctz 320-25 Mg Tab] 1 TAB) PO SCH; +ONDANSETRON 4 MG/2 ML VIAL IVP ONE; -POTASSIUM PO SCH; -PROPOFOL 10 MG/ML 20 ML VIAL IV ONE; +Pre Op ABX Message 1 EACH MISC MISCELLANE ONE; -RIVAROXABAN 20 MG TAB PO SCH; -SODIUM CHLORIDE 0.9% 1,000 ML IV SCH; -traMADol 50 MG TAB PO PRN
[2019-07-04 07:00] VITALS: RESP 16
[2019-07-04] MEDS ORDERED: PROPOFOL 10 MG/ML 20 ML VIAL IV ONE (07:25)
[2019-07-04] MEDS ORDERED: fentaNYL (PF) 50 MCG/ML 2 ML AMP ONE (07:25)
[2019-07-04] MEDS ORDERED: KETAMINE 10 MG/ML 20 ML VIAL ONE (07:25)
[2019-07-04] MEDS ORDERED: KETOROLAC 30 MG/ML 1 ML VIAL ONE (07:25)
[2019-07-04] MEDS ORDERED: MIDAZOLAM 2 MG/2 ML VIAL ONE (07:25)
--- NOTE | 2019-07-04 08:02 | P.OP ---
Date of Procedure: 07/04/19 Preoperative Diagnosis: Postmenopausal bleeding, history of endometrial hyperplasia, morbid obesity. Postoperative Diagnosis: Same, abundant endometrial tissue, pathology pending. Procedure(s) Performed: Hysteroscopy, fractional D&C Anesthesia: other (Monitored anesthesia care) Surgeon: Beti Rojas Estimated Blood Loss (ml): 25 IV fluids (ml): 400 Urine output (ml): 200 Pathology: other (Endocervical, and endometrial curettings) Condition: stable Disposition: PACU Operative Findings: A large amount of endometrial tiissue noted. Description of Procedure: Patient is brought to the operating suite where monitored anesthesia care is given. She's placed in the dorsal lithotomy position. The cervix, vagina, perineal bodies are all prepped and draped in usual sterile fashion. The appropriate timeout is performed to assure proper patient and procedural identification. Examination under anesthesia is difficult secondary to patient's body habitus, however the uterus does not feel grossly enlarged, it is midline, mobile, small. Adnexa negative bilaterally. Weighted speculum was placed into the vagina and the anterior lip of the cervix is grasped with a double-tooth tenaculum. Endocervical curettings are taken with a [facility] and sent to pathology. The uterus sounds to a depth of 9 cm in the anteverted position. The cervix is then systematically dilated using Hanks dilators. Hysteroscope was introduced and the cavity is noted to contain an abundant amount of proliferative-type appearing tissue. The hysteroscope was removed. The cervix is then gently and systematically dilated using Hanks dilators. A medium sharp curette is used and the cavity is thoroughly curettaged for a large amount of tissue. The hysteroscope is reintroduced, additional tissue is noted. Polyp forceps are then used to remove the remaining tissue. The double-tooth tenaculum is removed and the cervical lip is clean and dry. All sponge needle and enhancement counts are correct at the end of the procedure. Patient is given Toradol prior to leaving the operative suite. Patient is return to the recovery room in stable condition, in atrial fibrillation with a pulse of 115, blood pressure 160/87. Fluid replacement 400 mL, total estimated blood loss 25 mL, urine output 200 mL's. Patient will follow-up with me in the office in 2 weeks.
[2019-07-04 08:32] VITALS: BP 124/73; PULSE 107; TEMP 97.5
== END 2019-07-04 09:39 | disposition home or self-care (01) ==
LOC: OR 06:32
PROVIDERS: ATTEND Obstetrics & Gynecology
DX: C54.1 Malignant neoplasm of endometrium (principal); E66.01 Morbid (severe) obesity due to excess calories; Z68.43 Body mass index [BMI] 50.0-59.9, adult; I48.91 Unspecified atrial fibrillation; Z82.49 Family history of ischemic heart disease and other diseases of the circulatory system; I47.1 Supraventricular tachycardia; I42.9 Cardiomyopathy, unspecified; G47.33 Obstructive sleep apnea (adult) (pediatric); Z99.89 Dependence on other enabling machines and devices; E07.9 Disorder of thyroid, unspecified; I08.0 Rheumatic disorders of both mitral and aortic valves; I25.10 Atherosclerotic heart disease of native coronary artery without angina pectoris; Z79.01 Long term (current) use of anticoagulants; Z79.82 Long term (current) use of aspirin; Z79.891 Long term (current) use of opiate analgesic; Z79.899 Other long term (current) drug therapy; Z79.890 Hormone replacement therapy; Z88.5 Allergy status to narcotic agent; Z91.048 Other nonmedicinal substance allergy status; Z91.09 Other allergy status, other than to drugs and biological substances; Z91.018 Allergy to other foods
CPT/HCPCS: 88305; 58563; J2250; J1100; J2405; J3010; J1885; J2704

== ENCOUNTER → 2019-07-07 | Outpatient (CLI) | payer MEDICAID ==
--- NOTE | 2019-07-07 18:00 | ECHOF ---
Referral Reason:Cardiomyopathy I42.8,I48.0 AFib MEASUREMENTS -------- HEIGHT: 177.8 cm WEIGHT: 172.4 kg BP: 167/92 RVIDd: 3.5 cm (< 3.3) IVSd: 1.6 cm (0.6 - 1.1) LVIDd: 4.1 cm (3.9 - 5.3) LVPWd: 1.5 cm (0.6 - 1.1) IVSs: 1.9 cm LVIDs: 3.4 cm LVPWs: 2.0 cm LA Diam: 3.7 cm (2.7 - 3.8) LAESV Index (A-L): 31.85 ml/m IVSd: 1.5 cm (0.6 - 1.1) LVIDd: 4.4 cm (3.9 - 5.3) LVPWd: 1.3 cm (0.6 - 1.1) IVSs: 1.8 cm EDV(Teich): 86 ml Ao Diam: 3.3 cm (2.0 - 3.7) AV Cusp: 2.1 cm (1.5 - 2.6) MV EXCURSION: 19.197 mm (> 18.000) MV EF SLOPE: 120 mm/s (70 - 150) EPSS: 0.8 cm FINDINGS -------- Atrial fibrillation. This was a technically adequate study. The left ventricular size is normal. There is moderate concentric left ventricular hypertrophy. T here is moderate global hypokinesis of LV . Overall left ventricular systolic function is moderatel y impaired with, an EF between 35 - 40 %. The right ventricle is mildly enlarged. LA is midly dilated 29-33ml/m2. The right atrial size is normal. Interatrial and interventricular septum intact. There is mild to moderate aortic valve sclerosis. Mild mitral annular calcification present. There is trace to mild mitral regurgitation. The tricuspid valve appears structurally normal. The pulmonic valve was not well visualized. There is no pulmonic regurgitation present. The aortic root size is normal. Normal inferior vena cava with normal inspiratory collapse consistent with estimated right atrial pre ssure of 5 mmHg. There is no pericardial effusion. CONCLUSIONS -------- 1. Atrial fibrillation. 2. This was a technically adequate study. 3. The left ventricular size is normal. 4. There is moderate concentric left ventricular hypertrophy. 5. There is moderate global hypokinesis of LV . 6. Overall left ventricular systolic function is moderately impaired with, an EF between 35 - 40 %. 7. The right ventricle is mildly enlarged. 8. LA is midly dilated 29-33ml/m2. 9. There is mild to moderate aortic valve sclerosis. 10. Mild mitral annular calcification present. 11. There is trace to mild mitral regurgitation. 12. The tricuspid valve appears structurally normal. 13. The pulmonic valve was not well visualized. 14. The aortic root size is normal. 15. Normal inferior vena cava with normal inspiratory collapse consistent with estimated right atrial pressure of 5 mmHg. 16. There is no pericardial effusion. FOOD PRODUCTION ASSOCIATE: Jennifer Wallis RDCS
== END | disposition home or self-care (01) ==
LOC: RADECHMAIN 12:28
PROVIDERS: ATTEND Internal Medicine
DX: I08.3 Combined rheumatic disorders of mitral, aortic and tricuspid valves (principal); I48.91 Unspecified atrial fibrillation; E66.1 Drug-induced obesity
CPT/HCPCS: 93306

== ENCOUNTER → 2019-08-31 | Outpatient (CLI) | payer MEDICAID ==
--- NOTE | 2019-09-01 10:39 | MM ---
Reason for exam: screening (asymptomatic). Last mammogram was performed 3 years and 4 months ago. History: Patient is postmenopausal, has history of endometrial cancer at age 64, and is nulliparous. Taking progesterone for 4 months. Taking other hormone for 20 years. Physical Findings: A clinical breast exam by your physician is recommended on an annual basis and results should be correlated with mammographic findings. MG Screening Mammo w CAD Bilateral CC and MLO view(s) were taken. Prior study comparison: April 15, 2016, bilateral MG screening mammo w CAD. February 26, 2015, bilateral MG screening mammo w CAD. There are scattered fibroglandular densities. There is a low density 1.0cm right upper inner quadrant mass 5cm from nipple. Benign appearing bilateral calcifications. No suspicious abnormality on the left breast. ASSESSMENT: Incomplete: need additional imaging evaluation, BI-RAD 0 RECOMMENDATION: Special view mammogram of the right breast. If lesion persists on supplemental views, image directed ultrasound is recommended. [facility] will attempt to contact patient to return for supplemental views and ultrasound if indicated.
== END | disposition home or self-care (01) ==
LOC: RADMAMWWP 12:37
PROVIDERS: ATTEND Family Medicine
DX: Z12.31 Encounter for screening mammogram for malignant neoplasm of breast (principal)
CPT/HCPCS: 77067

== ENCOUNTER → 2019-09-11 | Outpatient (CLI) | payer MEDICAID ==
--- NOTE | 2019-09-11 11:28 | USB ---
Reason for exam: additional evaluation requested from abnormal screening. History: Patient is postmenopausal, has history of endometrial cancer at age 64, and is nulliparous. Taking progesterone for 4 months. Taking other hormone for 20 years. US Breast Workup Limited RT Right limited breast ultrasound including focal area of concern, retroareolar and axilla demonstrates a 0.3 x 0.2 x 0.2cm lesion too small to characterize at 1 o'clock may have shadowing, a 1.3 x 0.3 x 0.9cm cystic lesion at 1 o'clock, a 0.4 x 0.4 x 0.5cm mixed lesion with shadowing at 1 o'clock, suspicious and a 0.4 x 0.2 x 0.3cm lesion too small to characterize at 2 o'clock. These results were verbally communicated with the patient and result sheet given to the patient on 09/11/19. ASSESSMENT: Suspicious, BI-RAD 4 RECOMMENDATION: Ultrasound core biopsy of the right breast. (x2) Called office with mammographic findings and has scheduled an appointment for the patient for 09/15/19 at 11:[address] Montes. Biopsy scheduled for 09/26/19 at 12:20. PRELIMINARY REPORT CALLED AND FAXED TO DR. MONTES ON 09/11/19.
--- NOTE | 2019-09-11 11:46 | MM ---
Reason for exam: additional evaluation requested from abnormal screening. Last mammogram was performed less than 1 month ago. History: Patient is postmenopausal, has history of endometrial cancer at age 64, and is nulliparous. Taking progesterone for 4 months. Taking other hormone for 20 years. Physical Findings: Patient refused breast exam. MG Work Up Mamm w CAD RT Spot compression CC, spot compression MLO, and ML view(s) were taken of the right breast. Prior study comparison: August 31, 2019, bilateral MG screening mammo w CAD. April 15, 2016, bilateral MG screening mammo w CAD. There are scattered fibroglandular densities. Focal asymmetry right 1 o'clock 6cm from nipple 1.0cm size. This finding is changed when compared with previous exams. These results were verbally communicated with the patient and result sheet given to the patient on 09/11/19. ASSESSMENT: Incomplete: need additional imaging evaluation, BI-RAD 0 RECOMMENDATION: Ultrasound of the right breast.
== END | disposition home or self-care (01) ==
LOC: RADMAMWWP 08:39
PROVIDERS: ATTEND Family Medicine
DX: R92.8 Other abnormal and inconclusive findings on diagnostic imaging of breast (principal)
CPT/HCPCS: 77065

== ENCOUNTER → 2019-09-20 | Outpatient (CLI) | payer MEDICAID ==
[2019-09-20 14:06] VITALS: BP 147/79; PULSE 112; RESP 20; TEMP 97.7
--- NOTE | 2019-09-20 15:06 | P.GSHP ---
History of Present Illness H&P Date: 09/20/19 Chief Complaint: Radiographic abnormality right breast Emilie is a 64 year old white female with a recent bilateral mammogram performed on [id number]. There was a lesion in the right breast noted 1 cm in size in the upper inner quadrant of the breast. The patient then had supplemental views performed on [id number] this confirmed a focal asymmetry in the right breast at 1:00 6 cm from the nipple. An ultrasound was then performed. On ultrasound there was a 1.3 x 0.9 cystic lesion at 1:00 as well as 0.4 x 0.5 cm mixed lesion with shadowing at 1:00 this was considered suspicious and ultrasound-guided core biopsy was recommended. The patient does not feel anything of concern in her breast. The patient does not complain of any nipple discharge or skin changes of the breast. She drinks one cup of coffee in the morning, but not now she does not smoke. She does not eat chocolate regularly. Of importance is the fact that the patient was recently diagnosed with endometrial carcinoma. The patient was diagnosed secondary to the fact that she was started on xeralto and developed vaginal bleeding. For she was on this for atrial fibrillation. She also has a cardiomyopathy. The endometrial cancer was low-grade and secondary to comorbid cardiac issue she was not felt to be a good surgical candidate. She is therefore being treated with an IUD which is impregnated with progesterone. She is also being treated with metformin. The implant has been in place for about 7 weeks. She had endometrial pre-cancer approximately 5 years ago and was treated with oral progesterone. A repeat biopsy did not show anything of concern, and the progesterone was stopped. She had a repeat diagnosis of endometiral cancer was in June 2019. Family History: mother: cardiac disease father: cardiac disease maternal grandfather: prostate cancer maternal uncle: lymphoma Of importance is the fact that she had a brother who had a reaction to halothane anesthesia developed halothane hepatitis, and a cousin who after anesthetic uncertain as to the cause, but told that this was secondary to a reaction of the anesthesia Hormonal History: menarche: 18 menopause: 59 patient took progesterone 90 days, and now has an IUD impregnated with progesterone; has seen personal lines sales executive in past for irregular hormone levels Medical History: 1. cardiomyopathy ejection fraction 35-40% 2. atrial fibbrilation 3. HTN 4. arthritis (difficulty with ambulation) 5. lumbar disc herniation 6. hypothyroid 7. bronchial spasm 8. obesity Surgical History: 1. tonsil 2. cardioversion 3. D&C Social History: smoke: none alcohol: none drugs: none - Constitutional Constitutional: Denies chills, Denies fever - EENT Eyes: bilateral blurred vision Ears: deny: decreased hearing, tinnitus Ears, nose, mouth and throat: Reports post-nasal drip, Denies headache, Denies sore throat - Breasts Breasts: bilateral: as per HPI - Cardiovascular Comment: atrial fib, cardiomyopathy Cardiovascular: Reports high blood pressure - Respiratory Comment: bronchial spasm - Gastrointestinal Gastrointestinal: Denies abdominal pain, Denies diarrhea, Denies nausea, Denies vomiting - Genitourinary (Female) Genitourinary: Denies dysuria, Denies hematuria - Menstruation Comment: endometrial cancer Menstruation: Reports as per HPI - Musculoskeletal Comment: arthritis - Integumentary Integumentary: Denies pruritus, Denies rash - Neurological Neurological: Reports numbness, Reports tingling, Denies weakness - Psychiatric Psychiatric: Denies anxiety, Denies depression - Endocrine Comment: hypothyroid - Hematologic/Lymphatic Comment: aspirin, bleeding issues in the past, difficult with bleeding after surgery (tonsil), bleeding after an IV as a child Hematologic/Lymphatic: Reports as per HPI - Allergic/Immunologic Allergic/Immunologic: Reports as per HPI Past Medical History Past Medical History: Atrial Fibrillation, Asthma, Hyperlipidemia, Hypertension, Osteoarthritis (OA), Sleep Apnea/CPAP/BIPAP, Thyroid Disorder Additional Past Medical History / Comment(s): Mild intermittent bronchial asthma, SVT, cardiomyopathy, spinal stenosis, chronic back pain, degenerative arthritis, hypothyroidism, morbid obesity, C PAP MACHINE , CYST ON KIDNEY, low grade endometrial carcinoma, History of Any Multi-Drug Resistant Organisms: None Reported Past Surgical History: Heart Catheterization, Tonsillectomy Additional Past Surgical History / Comment(s): CARDIOVERSION, Past Anesthesia/Blood Transfusion Reactions: Family History of Problems w/ Anesthesia Additional Past Anesthesia/Blood Transfusion Reaction / Comment(s): PATIENT STATES HER BROTHER HAD A HISTORY OF PROBLEM WITH ANESTHESIA -HALOTHANE HAD JAUNDICE -SWELLING OF LIVER AND FEVER -MANY YEARS AGO" STATES HAD A COUSIN WHO FROM A REACTION FROM ANESTHESIA " Past Psychological History: No Psychological Hx Reported Additional Psychological History / Comment(s): Pt resides alone. She is a physical therapist. She is independent. Smoking Status: Never smoker Past Alcohol Use History: Rare Past Drug Use History: None Reported - Past Family History Father Family Medical History: Coronary Artery Disease (CAD), Myocardial Infarction ([place]) Additional Family Medical History / Comment(s): Father at the age of 57yrs from a [place]. He had 4 sisters who of MIs in their 60s. Mother Family Medical History: Congestive Heart Failure (CHF), CVA/TIA, Myocardial Infarction ([place]) Additional Family Medical History / Comment(s): Mother had cardiac problems. She of CHF/[place] at the age of 81yrs. She had several siblings who had CVAs. Medications and Allergies Home Medications Medication Instructions Recorded Confirmed Type Ergocalciferol (Vitamin D2) 50,000 unit PO FR 08/24/16 09/20/19 History [Drisdol] traMADol HCL [Ultram] 50 mg PO Q8H PRN 08/24/16 09/20/19 History Aspirin 81 mg PO HS 06/30/19 09/20/19 History Bumetanide 1 mg PO QAM 06/30/19 09/20/19 History Carvedilol 12.5 mg PO BID 06/30/19 09/20/19 History Levothyroxine Sodium [Synthroid] 250 mcg PO QAM 06/30/19 09/20/19 History Levonorgestrel [Mirena] 1 each IY ONCE 09/20/19 09/20/19 History Lisinopril [Zestril] 10 mg PO QAM 09/20/19 09/20/19 History metFORMIN HCL 850 mg PO BID 09/20/19 09/20/19 History Allergies Allergy/AdvReac Type Severity Reaction Status Date / Time adhesive tape Allergy Rash/Hives Verified 09/20/19 13:49 cat dander Allergy ITCHY Verified 09/20/19 13:49 EYES,, CONGESTION codeine Allergy Nausea & Verified 09/20/19 13:49 Vomiting Iodine and Iodide Containing Allergy Rash/Hives Verified 09/20/19 13:49 Produc wheat Allergy Unknown Verified 09/20/19 13:49 milk AdvReac CONGESTION Verified 09/20/19 13:49 soy AdvReac Unknown Verified 09/20/19 13:49 Surgical - Exam Vital Signs Temp Pulse Resp BP Pulse Ox 97.7 F 112 H 20 147/79 94 L 09/20/19 13:59 09/20/19 13:59 09/20/19 13:59 09/20/19 13:59 09/20/19 13:59 BMI 57.4 - General obese - Eyes normal ocular movement - ENT no hearing loss, no congestion - Neck no masses, trachea midline - Respiratory normal expansion, normal respiratory effort, clear to auscultation - Cardiovascular Heart Sounds: normal: S1, S2 - Abdomen no guarding or rebound Abdomen: soft, bowel sounds - Integumentary normal turgor - Neurologic no disoriented, no combative - Musculoskeletal difficulty with ambulation, in wheel chair - Psychiatric oriented to time, oriented to person, oriented to place, speech is normal, memory intact breast exam: right breast: Examination reveals fibrocystic changes, no dominant masses or nodules of concern, no nipple discharge of concern Right axilla: No adenopathy of concern Left breast: Examination reveals fibrocystic changes no dominant masses or nodules of concern, no nipple discharge of concern Left axilla: No adenopathy of concern Assessment and Plan Assessment: Impression: 1. cardiomyopathy ejection fraction 35-40% 2. atrial fibbrilation 3. HTN 4. arthritis (difficulty with ambulation) 5. lumbar disc herniation 6. hypothyroid 7. bronchial spasm 8. obesity 9. Abnormal mammogram and ultrasound of the right breast 10. ? bleeding abnormality 11. endometrial cancer Plan: 1. Appointment with hematology regarding possible bleeding abnormality prior to any ultrasound core biopsy, we have called and are settting this up with Dr. Zavala 2. Ultrasound core biopsy of right breast abnormality is cleared by hematology 3. Patient is presently receiving progesterone and if the biopsy shows a hormone positive tumor in the breast we may need to stop the IUD impregnated with progesterone which is being used as treatment for endometrial cancer 4. Difficulty with ambulation secondary to arthritis and lumbar back herniation, the patient may have difficulty getting onto the examination table for the ultrasound core biopsy, this will have to be done cautiously 5. Appointment with revenue stamper regarding weight gain, 100 pounds over past several years 6. Have discussed this with Dr. Hyatt I am ordering a CBC, PT PTT, and preoperative clearance regarding any hematologic disorder 7. Radiographs reviewed with radiology biopsy to be done after clearance by hematology; at the present time the patient continues to have progesterone impregnated IUD. She understands that if the lesion in the breast were cancer and NM+ this could be feeding the tumor. However, at this time we are trying the clear the patient for biopsy by hematology. 8. clearance with medicine prior to biopsy secondary to cardiac history About 50 minutes spent with the patient, and > 50% in planning and coordination of care. Time with Patient: Greater than 30
[2019-09-20 15:30] LABS: Basophils # (A) 0.1 k/uL (0-0.2); Basophils % (A) 1 %; Eosinophils # (A) 0.5 k/uL (0-0.7); Eosinophils % (A) 5 %; HCT 45.7 % (34.0-46.0); HGB 15.2 gm/dL (11.4-16.0); Lymphocytes # (A) 2.1 k/uL (1.0-4.8); Lymphocytes % (A) 19 %; MCHC 33.2 g/dL (31.0-37.0); MCV 90.2 fL (80.0-100.0); Monocytes # (A) 0.4 k/uL (0-1.0); Monocytes % (A) 4 %; Neutrophils % (A) 71 %; Platelet Count 238 k/uL (150-450); RBC 5.06 m/uL (3.80-5.40); RDW 13.2 % (11.5-15.5); WBC 11.1 k/uL (3.8-10.6)
[2019-09-20 15:47] LABS: INR 0.9 (<1.2); Partial Thromboplastin Time 24.9 sec (22.0-30.0); Prothrombin Time 9.9 sec (9.0-12.0)
== END | disposition home or self-care (01) ==
LOC: WWCWWP 13:26
PROVIDERS: ATTEND Surgery
DX: D68.9 Coagulation defect, unspecified (principal)
CPT/HCPCS: 36415; 85025; 85610; 85730

== ENCOUNTER → 2019-11-23 | Day surgery (SDC) | payer MEDICAID ==
[2019-11-23 11:54] VITALS: RESP 20
--- NOTE | 2019-11-23 13:12 | USB ---
EXAMINATION TYPE: US biopsy breast VAD RT, MG diagnostic mammo RT wo CAD DATE OF EXAM: 11/23/2019 CLINICAL HISTORY: R92.8 ABNORMAL MAMMOGRAM. TECHNIQUE: Ultrasound guided core biopsy of right breast. COMPARISON: Right breast ultrasound dated 09/11/2019 FINDINGS: The procedure of ultrasound guided core biopsy was explained to the patient. Benefits, alternatives, and risks were discussed. An informed consent was then obtained. Paracentral timeout was performed. Preprocedural scanning demonstrates no persistent mass at the 1:00 position in zone a for a previous 3 mm area of shadowing was questioned. The patient was placed in supine positioning for imaging and for the procedure. The overlying skin was prepped and draped in usual sterile fashion. 10 cc of 1% lidocaine was used as anesthetic into the skin and subcutaneous tissue up to a 5 mm mass at the 1:00 position in zone BC of the right breast. Under ultrasound guidance, a 12-gauge vacuum assisted biopsy gun device was used to obtain 5 core samples. Following this, a ribbon-shaped biopsy marker was left at the site of biopsy. Postprocedure mammogram demonstrates appropriate biopsy marker placement. The patient tolerated the procedure well without any immediate complication. The patient was kept in the radiology department for short stay after the procedure and then discharged home in stable condition. IMPRESSION: Successful, uncomplicated ultrasound guided core biopsy of a 5 mm mass at the 1:00 position in the right breast, full pathology results to follow. Pathology Results: Benign RIGHT BREAST, NEEDLE CORE BIOPSIES: Stromal fibrosis and focal cystic changes, pseudoangiomatous hyperplasia (PASH), ductal inflammation and hyaline change. Negative for adenocarcinoma. Recommendation Surgical consult of the right breast. (GEOVANNY) YONAS
[2019-11-23 14:51] VITALS: BP 161/116; PULSE 109; TEMP 97.5
== END ==
LOC: RADUSWWP 11:23
PROVIDERS: ATTEND Surgery
DX: N60.31 Fibrosclerosis of right breast (principal); N64.89 Other specified disorders of breast; R92.8 Other abnormal and inconclusive findings on diagnostic imaging of breast; Z88.5 Allergy status to narcotic agent; Z91.048 Other nonmedicinal substance allergy status; Z91.09 Other allergy status, other than to drugs and biological substances
CPT/HCPCS: 88305; 77065; 19083; A4648; J2001

== ENCOUNTER 2022-10-01 17:20 | Inpatient (IN) | payer MEDICARE, BC ==
--- NOTE | 2022-10-01 18:14 | XR ---
EXAMINATION TYPE: XR chest 1V portable DATE OF EXAM: 10/01/2022 COMPARISON: 06/04/2018 INDICATION: Difficulty in breathing TECHNIQUE: Single frontal view of the chest is obtained. FINDINGS: The heart size is M normal for size. The pulmonary vasculature is normal. A mild right lower lobe infiltrate is present. Clinical correlation recommended for atelectasis or p neumonia. Follow-up can be performed. IMPRESSION: 1. Right lower lobe atelectasis or pneumonia
[2022-10-01 18:39] LABS: Basophils # (A) 0.1 k/uL (0-0.2); Basophils % (A) 1 %; Eosinophils # (A) 0.3 k/uL (0-0.7); Eosinophils % (A) 3 %; HCT 32.9 % (34.0-46.0); HGB 10.6 gm/dL (11.4-16.0); Hypochromasia Moderate; Lymphocytes # (A) 1.5 k/uL (1.0-4.8); Lymphocytes % (A) 15 %; MCH 30.1 pg (25.0-35.0); MCHC 32.2 g/dL (31.0-37.0); MCV 93.5 fL (80.0-100.0); Mean Platelet Volume 9.4; Monocytes # (A) 0.5 k/uL (0-1.0); Monocytes % (A) 5 %; Neutrophils # (A) 7.6 k/uL (1.3-7.7); Neutrophils % (A) 76 %; Platelet Count 235 k/uL (150-450); RBC 3.52 m/uL (3.80-5.40); RDW 15.8 % (11.5-15.5)
[2022-10-01 18:46] LABS: INR 0.9 (<1.2); Partial Thromboplastin Time 23.9 sec (22.0-30.0); Prothrombin Time 9.8 sec (9.0-12.0)
[2022-10-01 18:53] LABS: ALT 11 U/L (4-34); AST 18 U/L (14-36); African American GFR (CKD) 86 (>60 ml/min/1.73 sqM); Albumin 3.6 g/dL (3.5-5.0); Alkaline Phosphatase 64 U/L (38-126); Anion Gap 6 mmol/L; Blood Urea Nitrogen 15 mg/dL (7-17); Calcium 8.7 mg/dL (8.4-10.2); Carbon Dioxide 31 mmol/L (22-30); Chloride 103 mmol/L (98-107); Glucose 137 mg/dL (74-99); Non-African American GFR(CKD) 75 (>60 ml/min/1.73 sqM); Potassium 4.5 mmol/L (3.5-5.1); Sodium 140 mmol/L (137-145); Total Bilirubin 1.2 mg/dL (0.2-1.3); Total Protein 6.1 g/dL (6.3-8.2)
--- NOTE | 2022-10-01 18:55 | ED ---
SOB HPI - General Chief Complaint: Shortness of Breath Stated Complaint: JERRELL Time Seen by Provider: 10/01/22 17:23 Source: patient, EMS Mode of arrival: EMS - History of Present Illness Initial Comments: This patient is a 67-year-old woman who comes by ambulance to be evaluated for inability to ambulate and worsening of orthopnea/dyspnea. The patient relates that symptoms have been coming on and getting worse for number weeks to months even. She states that really she is not able to get up and get to the bathroom any more which is why she called the ambulance. Patient states she has underlying history of atrial fibrillation and due to the epidemic has not been able to get into cardiology going back almost a couple of years. She has not been able to get into her primary physician since May. She notes that she is only able to sleep in her recliner. MD Complaint: shortness of breath - Related Data Home Medications Medication Instructions Recorded Confirmed Levothyroxine Sodium [Synthroid] 200 mcg PO DAILY 06/30/19 10/01/22 carvediloL 12.5 mg PO BID 06/30/19 10/01/22 metFORMIN HCL [Glucophage] 850 mg PO DAILY 09/20/19 10/01/22 Budesonide/Formoterol Fumarate 2 puff INHALATION RT-BID PRN 10/01/22 10/01/22 [Symbicort 160-4.5 Mcg Inhaler] Dulaglutide [Trulicity] 1.5 mg SQ DONALDSON 10/01/22 10/01/22 Levothyroxine Sodium [Synthroid] 50 mcg PO DAILY 10/01/22 10/01/22 Rivaroxaban [Xarelto] 20 mg PO HS 10/01/22 10/01/22 lisinopriL [Zestril] 20 mg PO DAILY 10/01/22 10/01/22 lisinopriL [Zestril] 20 mg PO HS PRN 10/01/22 10/01/22 Allergies Allergy/AdvReac Type Severity Reaction Status Date / Time adhesive tape Allergy Rash/Hives Verified 10/01/22 18:54 cat dander Allergy ITCHY Verified 10/01/22 18:54 EYES,, CONGESTION codeine Allergy Nausea & Verified 10/01/22 18:54 Vomiting Iodine and Iodide Containing Allergy Rash/Hives Verified 10/01/22 18:54 Produc wheat Allergy Unknown Verified 10/01/22 18:54 milk AdvReac CONGESTION Verified 10/01/22 18:54 soy AdvReac Unknown Verified 10/01/22 18:54 tramadol AdvReac Vomiting Verified 10/01/22 18:54 Review of Systems ROS Statement: Those systems with pertinent positive or pertinent negative responses have been documented in the HPI. ROS Other: All systems not noted in ROS Statement are negative. Past Medical History Past Medical History: Atrial Fibrillation, Asthma, Hyperlipidemia, Hypertension, Osteoarthritis (OA), Sleep Apnea/CPAP/BIPAP, Thyroid Disorder Additional Past Medical History / Comment(s): Mild intermittent bronchial asthma, SVT, cardiomyopathy, spinal stenosis, chronic back pain, degenerative arthritis, hypothyroidism, morbid obesity, C PAP MACHINE , CYST ON KIDNEY, low grade endometrial carcinoma, History of Any Multi-Drug Resistant Organisms: None Reported Past Surgical History: Heart Catheterization, Tonsillectomy Additional Past Surgical History / Comment(s): CARDIOVERSION, d&c Past Anesthesia/Blood Transfusion Reactions: Family History of Problems w/ Anesthesia Additional Past Anesthesia/Blood Transfusion Reaction / Comment(s): PATIENT STATES HER BROTHER HAD A HISTORY OF PROBLEM WITH ANESTHESIA -HALOTHANE HAD JAUNDICE -SWELLING OF LIVER AND FEVER -MANY YEARS AGO" STATES HAD A COUSIN WHO FROM A REACTION FROM ANESTHESIA " Past Psychological History: No Psychological Hx Reported Smoking Status: Never smoker Past Alcohol Use History: None Reported Past Drug Use History: None Reported - Past Family History Father Family Medical History: Coronary Artery Disease (CAD), Myocardial Infarction ([place]) Additional Family Medical History / Comment(s): Father at the age of 57yrs from a [place]. He had 4 sisters who of MIs in their 60s. Mother Family Medical History: Congestive Heart Failure (CHF), CVA/TIA, Myocardial Infarction ([place]) Additional Family Medical History / Comment(s): Mother had cardiac problems. Sh manjeet of CHF/[place] at the age of 81yrs. She had several siblings who had CVAs. General Exam General appearance: alert, in no apparent distress Head exam: Present: atraumatic, normocephalic Eye exam: Present: normal appearance. Absent: scleral icterus, conjunctival injection Neck exam: Present: normal inspection, full ROM Respiratory exam: Present: normal lung sounds bilaterally, rales (Bilateral bases). Absent: respiratory distress, wheezes, rhonchi, stridor Cardiovascular Exam: Present: tachycardia, irregular rhythm, normal heart sounds. Absent: systolic murmur, diastolic murmur, rubs, gallop GI/Abdominal exam: Present: soft. Absent: distended, tenderness, guarding, rebound, rigid, mass Extremities exam: Present: normal inspection, normal capillary refill, pedal edema. Absent: calf tenderness Back exam: Present: normal inspection. Absent: CVA tenderness (R), CVA tenderness (L) Neurological exam: Present: alert Skin exam: Present: warm, dry, intact, normal color. Absent: rash Course Vital Signs 10/01/22 10/01/22 10/01/22 17:21 17:26 19:01 Temperature 98.7 F Pulse Rate 111 H 108 H Respiratory 22 22 24 Rate Blood Pressure 145/100 146/88 O2 Sat by Pulse 98 98 Oximetry 10/01/22 21:14 Temperature Pulse Rate 100 Respiratory 18 Rate Blood Pressure 156/94 O2 Sat by Pulse 100 Oximetry Medical Decision Making - Lab Data Result diagrams: 10/01/22 18:20 10/01/22 18:20 Lab Results 10/01/22 10/01/22 10/01/22 Range/Units 18:20 18:20 18:20 WBC 10.0 (3.8-10.6) k/uL RBC 3.52 L (3.80-5.40) m/uL Hgb 10.6 L (11.4-16.0) gm/dL Hct 32.9 L (34.0-46.0) % MCV 93.5 (80.0-100.0) fL MCH 30.1 (25.0-35.0) pg MCHC 32.2 (31.0-37.0) g/dL RDW 15.8 H (11.5-15.5) % Plt Count 235 (150-450) k/uL MPV 9.4 Neutrophils % 76 % Lymphocytes % 15 % Monocytes % 5 % Eosinophils % 3 % Basophils % 1 % Neutrophils # 7.6 (1.3-7.7) k/uL Lymphocytes # 1.5 (1.0-4.8) k/uL Monocytes # 0.5 (0-1.0) k/uL Eosinophils # 0.3 (0-0.7) k/uL Basophils # 0.1 (0-0.2) k/uL Hypochromasia Moderate PT 9.8 (9.0-12.0) sec INR 0.9 (<1.2) APTT 23.9 (22.0-30.0) sec Sodium 140 (137-145) mmol/L Potassium 4.5 (3.5-5.1) mmol/L Chloride 103 (98-107) mmol/L Carbon Dioxide 31 H (22-30) mmol/L Anion Gap 6 mmol/L BUN 15 (7-17) mg/dL Creatinine 0.83 (0.52-1.04) mg/dL Est GFR (CKD-EPI)AfAm 86 (>60 ml/min/1.73 sqM) Est GFR (CKD-EPI)NonAf 75 (>60 ml/min/1.73 sqM) Glucose 137 H (74-99) mg/dL Plasma Lactic Acid David (0.7-2.0) mmol/L Calcium 8.7 (8.4-10.2) mg/dL Total Bilirubin 1.2 (0.2-1.3) mg/dL AST 18 (14-36) U/L ALT 11 (4-34) U/L Alkaline Phosphatase 64 (38-126) U/L Troponin I (0.000-0.034) ng/mL NT-Pro-B Natriuret Pep pg/mL Total Protein 6.1 L (6.3-8.2) g/dL Albumin 3.6 (3.5-5.0) g/dL Acetone, Qual Negative (Negative) 10/01/22 10/01/22 10/01/22 Range/Units 18:20 18:20 18:20 WBC (3.8-10.6) k/uL RBC (3.80-5.40) m/uL Hgb (11.4-16.0) gm/dL Hct (34.0-46.0) % MCV (80.0-100.0) fL MCH (25.0-35.0) pg MCHC (31.0-37.0) g/dL RDW (11.5-15.5) % Plt Count (150-450) k/uL MPV Neutrophils % % Lymphocytes % % Monocytes % % Eosinophils % % Basophils % % Neutrophils # (1.3-7.7) k/uL Lymphocytes # (1.0-4.8) k/uL Monocytes # (0-1.0) k/uL Eosinophils # (0-0.7) k/uL Basophils # (0-0.2) k/uL Hypochromasia PT (9.0-12.0) sec INR (<1.2) APTT (22.0-30.0) sec Sodium (137-145) mmol/L Potassium (3.5-5.1) mmol/L Chloride (98-107) mmol/L Carbon Dioxide (22-30) mmol/L Anion Gap mmol/L BUN (7-17) mg/dL Creatinine (0.52-1.04) mg/dL Est GFR (CKD-EPI)AfAm (>60 ml/min/1.73 sqM) Est GFR (CKD-EPI)NonAf (>60 ml/min/1.73 sqM) Glucose (74-99) mg/dL Plasma Lactic Acid David 1.2 (0.7-2.0) mmol/L Calcium (8.4-10.2) mg/dL Total Bilirubin (0.2-1.3) mg/dL AST (14-36) U/L ALT (4-34) U/L Alkaline Phosphatase (38-126) U/L Troponin I <0.012 (0.000-0.034) ng/mL NT-Pro-B Natriuret Pep 808 pg/mL Total Protein (6.3-8.2) g/dL Albumin (3.5-5.0) g/dL Acetone, Qual (Negative) - EKG Data -: EKG Interpreted by Ok EKG shows normal: axis (Borderline right axis deviation), intervals (Normal) Rate: tachycardia (Rate approximate 113 bpm) Interpretation: nonspecific ST-T wave changes, other (Atrial fibrillation with RVR. Possible pulmonary disease pattern) Disposition Clinical Impression: Atrial fibrillation with rapid ventricular response Disposition: ADMITTED IP TO THIS HOSP Condition: Poor Is patient prescribed a controlled substance at d/c from ED?: No
[2022-10-01] MEDS ORDERED: NITROGLYCERIN SL TABS 0.4 MG TAB SUBLINGUAL PRN (20:28)
[2022-10-01] MEDS ORDERED: DILTIAZEM ORAL 60 MG TAB PO STA (20:34)
[2022-10-01] MEDS: carvediloL 12.5 MG TAB PO SCH (21:13)
[2022-10-01] MEDS: RIVAROXABAN 20 MG TAB PO SCH (21:13)
[2022-10-01] MEDS: SYMBICORT 160-4.5 MCG INHALER INHALATION SCH (22:35)
[2022-10-01] MEDS ORDERED: FUROSEMIDE 10 MG/ML 4 ML VIAL IV STA (23:41)
[2022-10-02] MEDS: LEVOTHYROXINE 100 MCG TAB PO SCH (06:07)
[2022-10-02] MEDS: LEVOTHYROXINE 50 MCG TAB PO SCH (06:07)
[2022-10-02] MEDS: SYMBICORT 160-4.5 MCG INHALER INHALATION SCH ×2 (07:31→19:45)
[2022-10-02] MEDS: metFORMIN 850 MG TAB PO SCH (08:51)
[2022-10-02] MEDS: FUROSEMIDE 10 MG/ML 4 ML VIAL IV SCH ×2 (08:51→20:50)
[2022-10-02] MEDS: carvediloL 12.5 MG TAB PO SCH ×3 (08:52→20:50)
[2022-10-02] MEDS ORDERED: ASPIRIN 325 MG TAB PO SCH (09:00)
[2022-10-02 09:50] LABS: Chol/HDL Ratio 3.88 Ratio
--- NOTE | 2022-10-02 11:30 | P.CRDCN ---
History of Present Illness Consult date: 10/02/22 Requesting physician: Alton Muller Reason for Consult (text): atrial fibrillation rapid ventricular response Chief complaint: shortness of breath, edema, orthpnea History of present illness: This is a 67-year-old patient who previously followed in our office with Dr. Rodriguez however most recently has been following at [facility]. She has a history of persistent atrial fibrillation, nonischemic cardiomyopathy, hypertension, hyperlipidemia and CAD. She has not been seen by computer instructor in over 2 years. She has been complaining of progressively worsening shortness of breath, orthopnea and PND as well as edema and weight gain. She is apparently not been taking her diuretic at home she finds it very difficult to get out of her chair and has been having accidents. Upon presentation chest x-ray showed right lower lobe atelectasis or pneumonia. Heart rates have been elevated she continues to be in atrial fibrillation and her computer instructor at [facility] previously recommended rate control. She had been evaluated by Dr. Acevedo in the past and recommended Tikosyn loading however she declined this option. Her lab values on admission BUN 15, creatinine 0.83, troponins negative 3. NT proBNP was 808. She has been started on IV Lasix. She is overall feeling a bit better since she has diuresed some. Heart rates remain 90s to low 100s. Denies any complaints of chest discomfort, dizziness or lightheadedness. Past Medical History Past Medical History: Atrial Fibrillation, Asthma, Hyperlipidemia, Hypertension, Osteoarthritis (OA), Sleep Apnea/CPAP/BIPAP, Thyroid Disorder Additional Past Medical History / Comment(s): Mild intermittent bronchial asthma, SVT, cardiomyopathy, spinal stenosis, chronic back pain, degenerative arthritis, hypothyroidism, morbid obesity, C PAP MACHINE , CYST ON KIDNEY, low grade endometrial carcinoma, History of Any Multi-Drug Resistant Organisms: None Reported Past Surgical History: Heart Catheterization, Tonsillectomy Additional Past Surgical History / Comment(s): CARDIOVERSION, d&c Past Anesthesia/Blood Transfusion Reactions: Family History of Problems w/ Anesthesia Additional Past Anesthesia/Blood Transfusion Reaction / Comment(s): PATIENT STATES HER BROTHER HAD A HISTORY OF PROBLEM WITH ANESTHESIA -HALOTHANE HAD JAUNDICE -SWELLING OF LIVER AND FEVER -MANY YEARS AGO" STATES HAD A COUSIN WHO FROM A REACTION FROM ANESTHESIA " Past Psychological History: No Psychological Hx Reported Smoking Status: Never smoker Past Alcohol Use History: None Reported Past Drug Use History: None Reported - Past Family History Father Family Medical History: Coronary Artery Disease (CAD), Myocardial Infarction (SD) Additional Family Medical History / Comment(s): Father at the age of 57yrs from a [place]. He had 4 sisters who of MIs in their 60s. Mother Family Medical History: Congestive Heart Failure (CHF), CVA/TIA, Myocardial Infarction (SD) Additional Family Medical History / Comment(s): Mother had cardiac problems. She of CHF/SD at the age of 81yrs. She had several siblings who had CVAs. Medications and Allergies Home Medications Medication Instructions Recorded Confirmed Type Levothyroxine Sodium [Synthroid] 200 mcg PO DAILY 06/30/19 10/01/22 History carvediloL 12.5 mg PO BID 06/30/19 10/01/22 History metFORMIN HCL [Glucophage] 850 mg PO DAILY 09/20/19 10/01/22 History Budesonide/Formoterol Fumarate 2 puff INHALATION RT-BID PRN 10/01/22 10/01/22 History [Symbicort 160-4.5 Mcg Inhaler] Dulaglutide [Trulicity] 1.5 mg SQ DONALDSON 10/01/22 10/01/22 History Levothyroxine Sodium [Synthroid] 50 mcg PO DAILY 10/01/22 10/01/22 History Rivaroxaban [Xarelto] 20 mg PO HS 10/01/22 10/01/22 History lisinopriL [Zestril] 20 mg PO DAILY 10/01/22 10/01/22 History lisinopriL [Zestril] 20 mg PO HS PRN 10/01/22 10/01/22 History Allergies Allergy/AdvReac Type Severity Reaction Status Date / Time adhesive tape Allergy Rash/Hives Verified 10/01/22 18:54 cat dander Allergy ITCHY Verified 10/01/22 18:54 EYES,, CONGESTION codeine Allergy Nausea & Verified 10/01/22 18:54 Vomiting Iodine and Iodide Containing Allergy Rash/Hives Verified 10/01/22 18:54 Produc wheat Allergy Unknown Verified 10/01/22 18:54 milk AdvReac CONGESTION Verified 10/01/22 18:54 soy AdvReac Unknown Verified 10/01/22 18:54 tramadol AdvReac Vomiting Verified 10/01/22 18:54 Physical Exam Vitals: Vital Signs Temp Pulse Resp BP Pulse Ox 10/02/22 07:32 95 10/02/22 06:06 98 18 152/89 99 10/02/22 04:26 98 20 123/77 98 10/02/22 03:16 95 22 121/76 95 10/02/22 02:07 128/82 10/02/22 01:17 117/75 10/02/22 00:59 86 102/53 97 10/01/22 23:38 86 107/66 97 10/01/22 21:14 100 18 156/94 100 10/01/22 19:01 108 H 24 146/88 98 10/01/22 17:26 22 10/01/22 17:21 98.7 F 111 H 22 145/100 98 Intake and Output 10/01/22 10/02/22 10/02/22 22:59 06:59 14:59 Output Total 1600 Balance -1600 Output: Urine 1600 Other: Weight 190.509 kg PHYSICAL EXAMINATION: This is a 67-year-old female in no apparent distress at the time of my examination. HEENT: Head is atraumatic, normocephalic. Pupils are equal, round. Sclerae anicteric. Conjunctivae are clear. Mucous membranes of the mouth are moist. Neck is supple. There is no elevated jugular venous pressure. No carotid bruit is heard. CHEST EXAMINATION: Lungs reveal diminished air entry bilaterally with faint basilar crackles. No wheezes or rhonchi. Respirations even and nonlabored. HEART EXAMINATION: Heart irregular rate and rhythm, positive S1 and S2. No S3. No S4. No clicks, rubs or murmurs. ABDOMEN: Soft, obese nontender. Bowel sounds are heard. No organomegaly noted. EXTREMITIES: 1+ peripheral pulses with evidence of I'll to moderate peripheral edema and no calf tenderness noted. NEUROLOGIC EXAMINATION: Patient is awake, alert and oriented x3. Results 10/01/22 18:20 10/01/22 18:20 Cardiac Enzymes 10/01/22 10/01/22 10/01/22 Range/Units 18:20 18:20 22:17 AST 18 (14-36) U/L Troponin I <0.012 <0.012 (0.000-0.034) ng/mL 12/16/22 Range/Units 00:22 AST (14-36) U/L Troponin I <0.012 (0.000-0.034) ng/mL Coagulation 10/01/22 Range/Units 18:20 PT 9.8 (9.0-12.0) sec APTT 23.9 (22.0-30.0) sec Lipids 10/02/22 Range/Units 05:36 Triglycerides 104.00 (0.00-149.00) mg/dL Cholesterol 125.00 (0.00-200.00) mg/dL HDL Cholesterol 32.20 L (40.00-60.00) mg/dL Cholesterol/HDL Ratio 3.88 Ratio CBC 10/01/22 Range/Units 18:20 WBC 10.0 (3.8-10.6) k/uL RBC 3.52 L (3.80-5.40) m/uL Hgb 10.6 L (11.4-16.0) gm/dL Hct 32.9 L (34.0-46.0) % Plt Count 235 (150-450) k/uL Comprehensive Metabolic Panel 10/01/22 Range/Units 18:20 Sodium 140 (137-145) mmol/L Potassium 4.5 (3.5-5.1) mmol/L Chloride 103 (98-107) mmol/L Carbon Dioxide 31 H (22-30) mmol/L BUN 15 (7-17) mg/dL Creatinine 0.83 (0.52-1.04) mg/dL Glucose 137 H (74-99) mg/dL Calcium 8.7 (8.4-10.2) mg/dL AST 18 (14-36) U/L ALT 11 (4-34) U/L Alkaline Phosphatase 64 (38-126) U/L Total Protein 6.1 L (6.3-8.2) g/dL Albumin 3.6 (3.5-5.0) g/dL Current Medications Generic Name Dose Route Start Last Admin Trade Name Freq PRN Reason Stop Dose Admin Budesonide/Formoterol Fumarate 2 puff 10/01/22 22:00 10/02/22 07:31 Symbicort 160-4.5 Mcg Inhaler INHALATION Not Given RT-BID MARIZA Carvedilol 25 mg 10/02/22 09:15 10/02/22 09:03 Carvedilol 12.5 Mg Tab PO Not Given BID MARZIA Furosemide 40 mg 10/02/22 09:00 10/02/22 08:51 Furosemide 10 Mg/Ml 4 Ml Vial IV 40 mg Q12HR MARIZA Administration Levothyroxine Sodium 200 mcg 10/02/22 06:30 10/02/22 06:07 Levothyroxine 100 Mcg Tab PO 200 mcg DAILY@0630 MARIZA Administration Levothyroxine Sodium 50 mcg 10/02/22 06:30 10/02/22 06:07 Levothyroxine 50 Mcg Tab PO 50 mcg DAILY@0630 MARIZA Administration Metformin HCl 850 mg 10/02/22 09:00 10/02/22 08:51 Metformin 850 Mg Tab PO 850 mg DAILY MARIZA Administration Nitroglycerin 0.4 mg 10/01/22 20:28 Nitroglycerin Sl Tabs 0.4 Mg Tab SUBLINGUAL Q5M PRN Chest Pain Non-Formulary Medication 1.5 mg 10/04/22 09:00 Dulaglutide [Trulicity] SQ DONALDSON MARIZA Rivaroxaban 20 mg 10/01/22 21:00 10/01/22 21:13 Rivaroxaban 20 Mg Tab PO 20 mg HS MARIZA Administration Protocol Intake and Output 10/01/22 10/02/22 10/02/22 22:59 06:59 14:59 Output Total 1600 Balance -1600 Output: Urine 1600 Other: Weight 190.509 kg 10/01/22 18:20 10/01/22 18:20 Assessment and Plan Assessment: #1 acute on chronic systolic congestive heart failure #2 nonischemic cardiomyopathy #3 chronic persistent atrial fibrillation #4 hypertension #5 hyperlipidemia Plan: From cardiology's perspective medications were reviewed we will increase carvedilol. Continue diuresis with IV Lasix. We will obtain a 2-D echo with Doppler study to assess cardiac structure and function. We will continue to follow the patient and provide further recommendations accordingly. STEREO MAP PLOTTER OPERATOR note has been reviewed, I agree with a documented findings and plan of care. Patient was seen and examined.
[2022-10-02] MEDS: SPIRONOLACTONE 25 MG TAB PO SCH (11:44)
--- NOTE | 2022-10-02 12:39 | P.HPIM ---
History of Present Illness Patient is a pleasant 65-year-old female came in with complains of shortness of breath orthopnea and the weight gain chest x-ray showed right lower lobe atelectasis. BNP is around 808. Patient doesn't usually use oxygen at home pre sently requiring oxygen. Patient misses her diuretic doses occasionally because of her inability to get to bathroom because of nonavailability of appropriate tools at home, including get a hospital bed. Patient denied any fever chills. Doesn't have any leukocytosis, patient is afebrile. REVIEW OF SYSTEMS: CONSTITUTIONAL: No fever, no malaise, no fatigue. HEENT: No recent visual problems or hearing problems. Denied any sore throat. CARDIOVASCULAR:no palpitations, no syncope. PULMONARY: No shortness of breath, no cough, no hemoptysis. GASTROINTESTINAL: No diarrhea, no nausea, no vomiting, no abdominal pain. NEUROLOGICAL: No headaches, no weakness, no numbness. HEMATOLOGICAL: Denies any bleeding or petechiae. GENITOURINARY: Denies any burning micturition, frequency, or urgency. MUSCULOSKELETAL/RHEUMATOLOGICAL: Denies any joint pain, swelling, or any muscle pain. ENDOCRINE: Denies any polyuria or polydipsia. The rest of the 14-point review of systems is negative. PHYSICAL EXAMINATION: GENERAL: The patient is alert and oriented x3, not in any acute distress. Obese HEENT: Pupils are round and equally reacting to light. EOMI. No scleral icterus. No conjunctival pallor. Normocephalic, atraumatic. No pharyngeal erythema. No thyromegaly. CARDIOVASCULAR: S1 and S2 present. No murmurs, rubs, or gallops. PULMONARY: Chest is clear to auscultation, no wheezing or crackles. ABDOMEN: Soft, nontender, nondistended, normoactive bowel sounds. No palpable organomegaly. MUSCULOSKELETAL: No joint swelling or deformity. EXTREMITIES: No cyanosis, clubbing, mild bilateral lower extremity pedal edema NEUROLOGICAL: Gross neurological examination did not reveal any focal deficits. SKIN: No rashes. Assessment and plan -Congestive heart failure, with acute exacerbation, chronic systolic dysfunction ejection fraction of 40-45%. Nonischemic cardiomyopathy. Patient will continued on IV Lasix can be switched to oral Lasix tomorrow. CHF exacerbation is secondary to physical limitations which will be addressed with hospital bed another supplies, PT and OT were consulted for that reason -Chronic persistent atrial fibrillation for which she'll patient is on Xarelto a nd Coreg. Next -Hypertension -Hyperlipidemia [place]-atelectasis for which we'll use incentive spirometry -Obesity sleep apnea and uses CPAP machine at home which will be continued -Hypothyroidism DVT prophylaxis: On anticoagulation as mentioned above Past Medical History Past Medical History: Atrial Fibrillation, Asthma, Hyperlipidemia, Hypertension, Osteoarthritis (OA), Sleep Apnea/CPAP/BIPAP, Thyroid Disorder Additional Past Medical History / Comment(s): Mild intermittent bronchial asthma, SVT, cardiomyopathy, spinal stenosis, chronic back pain, degenerative arthritis, hypothyroidism, morbid obesity, C PAP MACHINE , CYST ON KIDNEY, low grade endometrial carcinoma, History of Any Multi-Drug Resistant Organisms: None Reported Past Surgical History: Heart Catheterization, Tonsillectomy Additional Past Surgical History / Comment(s): CARDIOVERSION, d&c Past Anesthesia/Blood Transfusion Reactions: Family History of Problems w/ Anesthesia Additional Past Anesthesia/Blood Transfusion Reaction / Comment(s): PATIENT STATES HER BROTHER HAD A HISTORY OF PROBLEM WITH ANESTHESIA -HALOTHANE HAD JAUNDICE -SWELLING OF LIVER AND FEVER -MANY YEARS AGO" STATES HAD A COUSIN WHO FROM A REACTION FROM ANESTHESIA " Past Psychological History: No Psychological Hx Reported Smoking Status: Never smoker Past Alcohol Use History: None Reported Past Drug Use History: None Reported - Past Family History Father Family Medical History: Coronary Artery Disease (CAD), Myocardial Infarction ([place]) Additional Family Medical History / Comment(s): Father at the age of 57yrs from a [place]. He had 4 sisters who of MIs in their 60s. Mother Family Medical History: Congestive Heart Failure (CHF), CVA/TIA, Myocardial Infarction ([place]) Additional Family Medical History / Comment(s): Mother had cardiac problems. She of CHF/[place] at the age of 81yrs. She had several siblings who had CVAs. Medications and Allergies Home Medications Medication Instructions Recorded Confirmed Type Levothyroxine Sodium [Synthroid] 200 mcg PO DAILY 06/30/19 10/01/22 History carvediloL 12.5 mg PO BID 06/30/19 10/01/22 History metFORMIN HCL [Glucophage] 850 mg PO DAILY 09/20/19 10/01/22 History Budesonide/Formoterol Fumarate 2 puff INHALATION RT-BID PRN 10/01/22 10/01/22 History [Symbicort 160-4.5 Mcg Inhaler] Dulaglutide [Trulicity] 1.5 mg SQ DONALDSON 10/01/22 10/01/22 History Levothyroxine Sodium [Synthroid] 50 mcg PO DAILY 10/01/22 10/01/22 History Rivaroxaban [Xarelto] 20 mg PO HS 10/01/22 10/01/22 History lisinopriL [Zestril] 20 mg PO DAILY 10/01/22 10/01/22 History lisinopriL [Zestril] 20 mg PO HS PRN 10/01/22 10/01/22 History Allergies Allergy/AdvReac Type Severity Reaction Status Date / Time adhesive tape Allergy Rash/Hives Verified 10/01/22 18:54 cat dander Allergy ITCHY Verified 10/01/22 18:54 EYES,, CONGESTION codeine Allergy Nausea & Verified 10/01/22 18:54 Vomiting Iodine and Iodide Containing Allergy Rash/Hives Verified 10/01/22 18:54 Produc wheat Allergy Unknown Verified 10/01/22 18:54 milk AdvReac CONGESTION Verified 10/01/22 18:54 soy AdvReac Unknown Verified 10/01/22 18:54 tramadol AdvReac Vomiting Verified 10/01/22 18:54 Physical Exam Vitals: Vital Signs Temp Pulse Pulse Resp BP BP Pulse Ox 10/02/22 11:41 92 28 H 138/69 98 10/02/22 07:32 95 10/02/22 06:06 98 18 152/89 99 10/02/22 04:26 98 20 123/77 98 10/02/22 03:16 95 22 121/76 95 10/02/22 02:07 128/82 10/02/22 01:17 117/75 10/02/22 00:59 86 102/53 97 10/01/22 23:38 86 107/66 97 10/01/22 21:14 100 18 156/94 100 10/01/22 19:01 108 H 24 146/88 98 10/01/22 17:26 22 10/01/22 17:21 98.7 F 111 H 22 145/100 98 Intake and Output 10/01/22 10/02/22 10/02/22 22:59 06:59 14:59 Output Total 1600 Balance -1600 Output: Urine 1600 Other: Weight 190.509 kg Results CBC & Chem 7: 10/01/22 18:20 10/01/22 18:20 Labs: Abnormal Lab Results - Last 24 Hours (Table) 10/01/22 10/01/22 10/02/22 Range/Units 18:20 18:20 05:36 RBC 3.52 L (3.80-5.40) m/uL Hgb 10.6 L (11.4-16.0) gm/dL Hct 32.9 L (34.0-46.0) % RDW 15.8 H (11.5-15.5) % Carbon Dioxide 31 H (22-30) mmol/L Glucose 137 H (74-99) mg/dL Total Protein 6.1 L (6.3-8.2) g/dL HDL Cholesterol 32.20 L (40.00-60.00) mg/dL
[2022-10-02] MEDS: lisinopriL 10 MG TAB PO SCH (20:50)
[2022-10-02] MEDS: RIVAROXABAN 20 MG TAB PO SCH (20:50)
[2022-10-03] MEDS: LEVOTHYROXINE 100 MCG TAB PO SCH (05:20)
[2022-10-03] MEDS: LEVOTHYROXINE 50 MCG TAB PO SCH (05:20)
[2022-10-03] MEDS: SYMBICORT 160-4.5 MCG INHALER INHALATION SCH ×2 (07:45→19:29)
[2022-10-03 09:14] LABS: African American GFR (CKD) 68.5 (60.0-200.0); Anion Gap 11.1 mmol/L (10.00-18.00); BUN/Creat Ratio 13.8 Ratio (12.00-20.00); Blood Urea Nitrogen 13.8 mg/dL (9.0-27.0); Calcium 8.8 mg/dL (8.7-10.3); Carbon Dioxide 30.9 mmol/L (20.0-27.5); Non-African American GFR(CKD) 59.1 (60.0-200.0)
--- NOTE | 2022-10-03 10:35 | P.PN ---
Subjective Progress Note Date: 10/03/22 This is a 67-year-old patient who previously followed in our office with Dr. Rodriguez however most recently has been following at [facility]. She has a history of persistent atrial fibrillation, nonischemic cardiomyopathy, hypertension, hyperlipidemia and CAD. She has not been seen by binder lockstitch in over 2 years. She has been complaining of progressively worsening shortness of breath, orthopnea and PND as well as edema and weight gain. She is apparently not been taking her diuretic at home she finds it very difficult to get out of her chair and has been having accidents. Upon presentation chest x-ray showed right lower lobe atelectasis or pneumonia. Heart rates have been elevated she continues to be in atrial fibrillation and her binder lockstitch at [place] [facility] previously recommended rate control. She had been evaluated by Dr. Acevedo in the past and recommended Tikosyn loading however she declined this option. Her lab values on admission BUN 15, creatinine 0.83, troponins negative 3. NT proBNP was 808. She has been started on IV Lasix. She is overall feeling a bit better since she has diuresed some. Heart rates remain 90s to low 100s. Denies any complaints of chest discomfort, dizziness or lightheadedness. 10/03/2022 Upon examination the patient is resting currently in bed. She appears to be breathing more comfortably. She continues to complain of orthopnea and significant edema. Continues to complain of exertional dyspnea. Renal function is relatively stable. Vital signs are stable. She continues on IV Lasix and was started on Aldactone yesterday. Echocardiogram with Doppler study was completed this morning and results are pending. Objective - Vital Signs Vital signs: Vital Signs Temp 97.6 F 10/03/22 04:50 Pulse 93 10/03/22 04:50 Resp 18 10/03/22 05:42 BP 131/73 10/03/22 04:50 Pulse Ox 99 10/03/22 07:45 FiO2 Intake & Output 10/02/22 10/03/22 10/03/22 18:59 06:59 18:59 Intake Total 600 Output Total 2500 1150 Balance -2500 -550 Weight 190.509 kg Intake: Oral 600 Output: Urine 2500 1150 Other: Voiding Method Bedside Commode Diaper External Catheter # Voids 0 - Exam HEENT: Head is atraumatic, normocephalic. Pupils are equal, round. Sclerae anicteric. Conjunctivae are clear. Mucous membranes of the mouth are moist. Neck is supple. There is no elevated jugular venous pressure. No carotid bruit is heard. CHEST EXAMINATION: Lungs reveal diminished air entry bilaterally with faint basilar crackles. No wheezes or rhonchi. Respirations even and nonlabored. HEART EXAMINATION: Heart irregular rate and rhythm, positive S1 and S2. No S3. No S4. No clicks, rubs or murmurs. ABDOMEN: Soft, obese nontender. Bowel sounds are heard. No organomegaly noted. EXTREMITIES: 1+ peripheral pulses with evidence of I'll to moderate peripheral edema and no calf tenderness noted. NEUROLOGIC EXAMINATION: Patient is awake, alert and oriented x3. - Labs CBC & Chem 7: 10/01/22 18:20 10/03/22 05:15 Labs: Abnormal Lab Results - Last 24 Hours (Table) 10/03/22 Range/Units 05:15 Carbon Dioxide 30.9 H (20.0-27.5) mmol/L Est GFR (CKD-EPI)NonAf 59.1 L (60.0-200.0) Assessment and Plan Assessment: #1 acute on chronic systolic congestive heart failure #2 nonischemic cardiomyopathy #3 chronic persistent atrial fibrillation #4 hypertension #5 hyperlipidemia Plan: From cardiology's perspective medications were reviewed we will continue the same. Await echocardiogram results. Continue to monitor renal function and electrolytes. Continue IV Lasix for another 24 hours. Likely switch to by mouth Lasix tomorrow. We will continue to follow the patient and provide further recommendations accordingly. ANESTHESIOLOGY TECH note has been reviewed, I agree with a documented findings and plan of care. Patient was seen and examined.
[2022-10-03] MEDS: carvediloL 12.5 MG TAB PO SCH ×2 (10:49→21:04)
[2022-10-03] MEDS: metFORMIN 850 MG TAB PO SCH (10:49)
[2022-10-03] MEDS: SPIRONOLACTONE 25 MG TAB PO SCH (10:49)
[2022-10-03] MEDS: FUROSEMIDE 10 MG/ML 4 ML VIAL IV SCH ×2 (10:50→21:04)
--- NOTE | 2022-10-03 11:40 | P.PN ---
Subjective 10/03/2022 Patient is awaiting evaluation by case management and social work to help her with the home hospital bed and other equipment. Patient cannot take care of herself without the the stools patient is being continued on IV Lasix at this time. Patient was admitted with heart failure and atrial fibrillation. She did have bradycardia and output since yesterday. All inpatient medications were reviewed and appropriate changes in these medi cations as dictated in the interval history and assessment and plan. Patient is a pleasant 65-year-old female came in with complains of shortness of breath orthopnea and the weight gain chest x-ray showed right lower lobe atelectasis. BNP is around 808. Patient doesn't usually use oxygen at home p resently requiring oxygen. Patient misses her diuretic doses occasionally because of her inability to get to bathroom because of nonavailability of appropriate tools at home, including get a hospital bed. Patient denied any fever chills. Doesn't have any leukocytosis, patient is afebrile. Constitutional: Denied any fatigue denied any fever. Cardio vascular: denied any chest pain, palpitations Gastrointestinal denied any nausea vomiting Pulmonary: Denied any shortness of breath cough Neurologic denied any new focal deficits PHYSICAL EXAMINATION: GENERAL: The patient is alert and oriented x3, not in any acute distress. Obese HEENT: Pupils are round and equally reacting to light. EOMI. No scleral icterus. No conjunctival pallor. Normocephalic, atraumatic. No pharyngeal erythema. No thyromegaly. CARDIOVASCULAR: S1 and S2 present. No murmurs, rubs, or gallops. PULMONARY: Chest is clear to auscultation, no wheezing or crackles. ABDOMEN: Soft, nontender, nondistended, normoactive bowel sounds. No palpable organomegaly. MUSCULOSKELETAL: No joint swelling or deformity. EXTREMITIES: No cyanosis, clubbing, mild bilateral lower extremity pedal edema NEUROLOGICAL: Gross neurological examination did not reveal any focal deficits. SKIN: No rashes. Assessment and plan -Congestive heart failure, with acute exacerbation, chronic systolic dysfunction ejection fraction of 40-45%. Nonischemic cardiomyopathy. Patient will continued on IV Lasix can be switched to oral Lasix tomorrow. CHF exacerbation is secondary to physical limitations which will be addressed with hospital bed another supplies, PT and OT were consulted for that reason, continue with IV Lasix and did not last night -Chronic persistent atrial fibrillation for which she'll patient is on Xarelto and Coreg. -Hypertension -Hyperlipidemia [place]-atelectasis for which we'll use incentive spirometry -Obesity sleep apnea and uses CPAP machine at home which will be continued -Hypothyroidism DVT prophylaxis: On anticoagulation as mentioned above Objective - Vital Signs Vital signs: Vital Signs Temp 97.6 F 10/03/22 04:50 Pulse 93 10/03/22 04:50 Resp 18 10/03/22 05:42 BP 131/73 10/03/22 04:50 Pulse Ox 99 10/03/22 07:45 FiO2 Intake & Output 10/02/22 10/03/22 10/03/22 18:59 06:59 18:59 Intake Total 600 Output Total 2500 1150 Balance -2500 -550 Weight 190.509 kg Intake: Oral 600 Output: Urine 2500 1150 Other: Voiding Method Bedside Commode External Catheter Diaper External Catheter # Voids 0 - Labs CBC & Chem 7: 10/01/22 18:20 10/03/22 05:15 Labs: Abnormal Lab Results - Last 24 Hours (Table) 10/03/22 Range/Units 05:15 Carbon Dioxide 30.9 H (20.0-27.5) mmol/L Est GFR (CKD-EPI)NonAf 59.1 L (60.0-200.0)
--- NOTE | 2022-10-03 18:28 | CA ---
Transthoracic Echo Report Name: Emilie Burnett Age: 67 Gender: F : 1955 Exam Date: 10/03/2022 07:00 Exam Location: [facility] Ht (in): 62 Wt (lb): 420 Ordering Physician: Kimberly Gamez Attending/Referring Phys: [id number], [facility] Director Susy Chatman RDCS Procedure CPT: Indications: cardiomyopathy Cardiac Hx: Morbid ObesityAtrial Fibrillation. Technical Quality: Technically difficult study Contrast 1: Total Dose (mL): Contrast 2: Total Dose (mL): MEASUREMENTS (Male / Female) Normal Values 2D ECHO LV Diastolic Diameter PLAX 4.8 cm 4.2 - 5.9 / 3.9 - 5.3 cm LV Systolic Diameter PLAX 4.2 cm IVS Diastolic Thickness 1.4 cm 0.6 - 1.0 / 0.6 - 0.9 cm LVPW Diastolic Thickness 1.9 cm 0.6 - 1.0 / 0.6 - 0.9 cm LV Relative Wall Thickness 0.7 RV Internal Dim ED PLAX 3.7 cm LA Systolic Diameter LX 4.7 cm 3.0 - 4.0 / 2.7 - 3.8 cm M-MODE Aortic Root Diameter MM 3.7 cm LA Systolic Diameter MM 4.3 cm LA Ao Ratio MM 1.2 MV E Point Septal Separation 1.0 cm AV Cusp Separation MM 1.8 cm DOPPLER MV Peak Velocity 171.2 cm/s MV Peak Gradient 11.7 mmHg MV Mean Velocity 80.3 cm/s MV Mean Gradient 3.7 mmHg MV Velocity Time Integral 29.3 cm MV Area PHT 4.3 cm??? TR Peak Velocity 275.1 cm/s TR Peak Gradient 30.3 mmHg Right Ventricular Systolic Press 35.3 mmHg FINDINGS Left Ventricle Moderately increased septal wall thickness. Left ventricular cavity size normal. Left ventricular ejection fraction is estimated at 40- 45 %. No segmental wall motion abnormality Right Ventricle Normal right ventricular size and function. Mild pulmonary hypertension. Right ventricular systolic pressure estimated at 35mm hg. Right Atrium Normal right atrial size. Left Atrium Moderately increased left atrial diameter. Mitral Valve Structurally normal mitral valve. Mild mitral regurgitation. Mitral annular calcification. Aortic Valve Trileaflet aortic valve. Aortic valve sclerosis. Tricuspid Valve Structurally normal tricuspid valve. Mild tricuspid regurgitation. Pulmonic Valve Pulmonic valve not well visualized. Pericardium Normal pericardium. Aorta Aortic root is mildlydilated and measures 3.8cm. CONCLUSIONS 1. Mild to moderate global hypokinesis 2. Mild mitral and tricuspid regurgitation 3. No pericardial effusion Previewed by: Dr. Mckenzie Rodriguez MD (Electronically Signed) Final Date: 03 October 2022 18:26
[2022-10-03] MEDS: lisinopriL 10 MG TAB PO SCH (21:04)
[2022-10-03] MEDS: RIVAROXABAN 20 MG TAB PO SCH (21:04)
[2022-10-04] MEDS: LEVOTHYROXINE 100 MCG TAB PO SCH (06:59)
[2022-10-04] MEDS: LEVOTHYROXINE 50 MCG TAB PO SCH (06:59)
[2022-10-04] MEDS: SYMBICORT 160-4.5 MCG INHALER INHALATION SCH ×2 (07:33→19:58)
[2022-10-04] MEDS ORDERED: NON FORMULARY DRUG (Dulaglutide [Trulicity] 1.5 MG/0.5 ML Each) SQ SCH (09:00)
[2022-10-04] MEDS: metFORMIN 850 MG TAB PO SCH (09:53)
[2022-10-04] MEDS: SPIRONOLACTONE 25 MG TAB PO SCH (09:53)
[2022-10-04] MEDS: carvediloL 12.5 MG TAB PO SCH ×2 (09:53→20:41)
[2022-10-04] MEDS ORDERED: FUROSEMIDE 40 MG TAB PO STA (10:05)
[2022-10-04] MEDS: FUROSEMIDE 10 MG/ML 4 ML VIAL IV SCH (10:15)
[2022-10-04] MEDS: DAPAGLIFLOZIN PROPANEDIOL 10 MG TABLET PO SCH (11:43)
--- NOTE | 2022-10-04 11:51 | P.PN ---
Subjective Progress Note Date: 10/04/22 This is a 67-year-old patient who previously followed in our office with Dr. Rodriguez however most recently has been following at [facility]. She has a history of persistent atrial fibrillation, nonischemic cardiomyopathy, hypertension, hyperlipidemia and CAD. She has not been seen by guest services lead in over 2 years. She has been complaining of progressively worsening shortness of breath, orthopnea and PND as well as edema and weight gain. She is apparently not been taking her diuretic at home she finds it very difficult to get out of her chair and has been having accidents. Upon presentation chest x-ray showed right lower lobe atelectasis or pneumonia. Heart rates have been elevated she continues to be in atrial fibrillation and her guest services lead at [facility] previously recommended rate control. She had been evaluated by Dr. Acevedo in the past and recommended Tikosyn loading however she declined this option. Her lab values on admission BUN 15, creatinine 0.83, troponins negative 3. NT proBNP was 808. She has been started on IV Lasix. She is overall feeling a bit better since she has diuresed some. Heart rates remain 90s to low 100s. Denies any complaints of chest discomfort, dizziness or lightheadedness. 10/03/2022 Upon examination the patient is resting currently in bed. She appears to be breathing more comfortably. She continues to complain of orthopnea and significant edema. Continues to complain of exertional dyspnea. Renal function is relatively stable. Vital signs are stable. She continues on IV Lasix and was started on Aldactone yesterday. Echocardiogram with Doppler study was completed this morning and results are pending. 10/04/2022 The patient was seen and examined resting in bed. She is somewhat tearful this morning worried about finding help for home. She overall feels her breathing is improving. She continues to have some dyspnea but better. She also feels her edema has improved and she's been denies increasing well. She is concerned abou t continuing on IV Lasix due to her potassium as she has been putting out large amounts of urine. No labs available from this morning. Echocardiogram with Doppler study was stable with an ejection fraction of 40-45%, mild MR and mild TR. Objective - Vital Signs Vital signs: Vital Signs Temp 97.6 F 10/04/22 05:00 Pulse 99 10/04/22 05:00 Resp 20 10/04/22 05:00 BP 142/80 10/04/22 05:00 Pulse Ox 94 L 10/04/22 07:33 FiO2 Intake & Output 10/03/22 10/04/22 10/04/22 18:59 06:59 18:59 Output Total 1150 Balance -1150 Output: Urine 1150 Other: Voiding Method External Catheter External Catheter # Voids 2 # Bowel Movements 1 1 - Exam HEENT: Head is atraumatic, normocephalic. Pupils are equal, round. Sclerae anicteric. Conjunctivae are clear. Mucous membranes of the mouth are moist. Neck is supple. There is no elevated jugular venous pressure. No carotid bruit is heard. CHEST EXAMINATION: Lungs reveal diminished air entry bilaterally. No wheezes, crackles, or rhonchi. Respirations even and nonlabored. HEART EXAMINATION: Heart irregular rate and rhythm, positive S1 and S2. No S3. No S4. No clicks, rubs or murmurs. ABDOMEN: Soft, obese nontender. Bowel sounds are heard. No organomegaly noted. EXTREMITIES: 1+ peripheral pulses with evidence of mild peripheral edema, improving and no calf tenderness noted. NEUROLOGIC EXAMINATION: Patient is awake, alert and oriented x3, tearful. - Labs CBC & Chem 7: 10/01/22 18:20 10/03/22 05:15 Assessment and Plan Assessment: #1 acute on chronic systolic congestive heart failure #2 nonischemic cardiomyopathy #3 chronic persistent atrial fibrillation #4 hypertension #5 hyperlipidemia Plan: From cardiology's perspective medications we will switch to oral Lasix. Check renal function and electrolytes. Encourage increased activity. Continue carvedilol, lisinopril and Aldactone. We will add Farxiga. We'll continue to follow the patient by further recommendations accordingly. READING SPECIALIST note has been reviewed, I agree with a documented findings and plan of care. Patient was seen and examined.
--- NOTE | 2022-10-04 12:20 | P.PN ---
Subjective Progress Note Date: 10/04/22 10/03/2022 Patient is awaiting evaluation by case management and social work to help her with the home hospital bed and other equipment. Patient cannot take care of herself without the the stools patient is being continued on IV Lasix at this time. Patient was admitted with heart failure and atrial fibrillation. She did have bradycardia and output since yesterday. All inpatient medications were reviewed and appropriate changes in these medications as dictated in the interval history and assessment and plan. Patient is a pleasant 65-year-old female came in with complains of shortness of breath orthopnea and the weight gain chest x-ray showed right lower lobe atelectasis. BNP is around 808. Patient doesn't usually use oxygen at home presently requiring oxygen. Patient misses her diuretic doses occasionally because of her inability to get to bathroom because of nonavailability of appropriate tools at home, including get a hospital bed. Patient denied any fever chills. Doesn't have any leukocytosis, patient is afebrile. 10/04/2022 Patient is evaluated today sitting up at bedside. Currently she reports intermittent issues with taking a deep breath. Otherwise no acute events overnight. She has been transitioned to oral diuretics. Cardiology following. Blood pressure 142/80. Patient is pending physical therapy evaluation and discharge planning with CM/SW. Patient ideally would like to return home with home care and home physical therapy and additional DME including bedside commode and also hospital bed. She does have morbid obesity and chronic arthritic changes affecting her overall functionality at home and mobility. She will most likely be discharge on oral diuretics which given her current medical condition she is unable to self ambulate to the restroom and this poses a concern for her. Review of Systems Constitutional: Denied any fatigue denied any fever. Cardio vascular: denied any chest pain, palpitations Gastrointestinal: denied any nausea, vomiting, diarrhea Pulmonary: Reports shortness of breath cough Neurologic denied any new focal deficits All inpatient medications were reviewed and appropriate changes in these medications as dictated in the interval history and assessment and plan. PHYSICAL EXAMINATION: GENERAL: The patient is alert and oriented x3, not in any acute distress. Morbidly Obese HEENT: Pupils are round and equally reacting to light. EOMI. No scleral icterus. No conjunctival pallor. Normocephalic, atraumatic. No pharyngeal erythema. No thyromegaly. CARDIOVASCULAR: S1 and S2 present. No murmurs, rubs, or gallops. PULMONARY: Chest is clear to auscultation, no wheezing or crackles. ABDOMEN: Soft, nontender, nondistended, normoactive bowel sounds. No palpable organomegaly. MUSCULOSKELETAL: No joint swelling or deformity. EXTREMITIES: No cyanosis, clubbing, mild bilateral lower extremity pedal edema NEUROLOGICAL: Gross neurological examination did not reveal any focal deficits. SKIN: No rashes. Assessment and plan -Congestive heart failure, with acute exacerbation, chronic systolic dysfunction ejection fraction of 40-45%. Nonischemic cardiomyopathy. Patient has been transitioned to oral lasix. CHF exacerbation is secondary to physical limitations which will be addressed with hospital bed another supplies, PT and OT were consulted for that reason -Chronic persistent atrial fibrillation for which patient is on Xarelto and Coreg. -Hypertension -Hyperlipidemia -Atelectasis for which we'll use incentive spirometry -Obesity sleep apnea and uses CPAP machine at home which will be continued -Hypothyroidism -Morbid Obesity -Osteoarthritis -General medical Debility secondary to multiple medical comorbidites and also obesity limiting mobility. DVT prophylaxis: On anticoagulation as mentioned above GI prophylaxis: Plan Patient will be evaluated by PT/OT tomorrow, has been transitioned to oral diuretics. Discharge planning with case management tomorrow. Possible D/C in the next 24 hours. The impression and plan of care has been dictated by Danielle Burrows, Nurse Practitioner as directed. Dr. Nathan MD I have performed a history and physical examination and medical decision making of this patient, discussed the same with the dictator, and agree with the dictators assessment and plan as written, documented as a scribe. Based on total visit time, I have performed more than 50% of this visit. Objective - Vital Signs Vital signs: Vital Signs Temp 97.6 F 10/04/22 05:00 Pulse 99 10/04/22 05:00 Resp 20 10/04/22 05:00 BP 142/80 10/04/22 05:00 Pulse Ox 94 L 10/04/22 07:33 FiO2 Intake & Output 10/03/22 10/04/22 10/04/22 18:59 06:59 18:59 Output Total 1150 Balance -1150 Output: Urine 1150 Other: Voiding Method External Catheter External Catheter External Catheter # Voids 2 # Bowel Movements 1 1 - Labs CBC & Chem 7: 10/01/22 18:20 10/03/22 05:15 Assessment and Plan Time with Patient: Less than 30
[2022-10-04 13:22] LABS: African American GFR (CKD) >90 (>60 ml/min/1.73 sqM); Anion Gap 5 mmol/L; Blood Urea Nitrogen 17 mg/dL (7-17); Calcium 8.5 mg/dL (8.4-10.2); Carbon Dioxide 33 mmol/L (22-30); Chloride 99 mmol/L (98-107); Glucose 123 mg/dL (74-99); Non-African American GFR(CKD) 80 (>60 ml/min/1.73 sqM); Potassium 3.9 mmol/L (3.5-5.1); Sodium 137 mmol/L (137-145)
[2022-10-04] MEDS: FUROSEMIDE 40 MG TAB PO SCH (17:43)
[2022-10-04] MEDS: lisinopriL 10 MG TAB PO SCH (20:41)
[2022-10-04] MEDS: RIVAROXABAN 20 MG TAB PO SCH (20:42)
[2022-10-05] MEDS: LEVOTHYROXINE 100 MCG TAB PO SCH (05:20)
[2022-10-05] MEDS: LEVOTHYROXINE 50 MCG TAB PO SCH (05:20)
[2022-10-05] MEDS: SYMBICORT 160-4.5 MCG INHALER INHALATION SCH (08:21)
[2022-10-05] MEDS: FUROSEMIDE 40 MG TAB PO SCH (08:38)
[2022-10-05] MEDS: carvediloL 12.5 MG TAB PO SCH (08:38)
[2022-10-05] MEDS: metFORMIN 850 MG TAB PO SCH (08:38)
[2022-10-05] MEDS: DAPAGLIFLOZIN PROPANEDIOL 10 MG TABLET PO SCH ×2 (08:38→08:42)
[2022-10-05] MEDS: SPIRONOLACTONE 25 MG TAB PO SCH (08:38)
[2022-10-05 08:46] LABS: Glucose,Whole Blood 136 mg/dL (70-110)
[2022-10-05 09:25] LABS: African American GFR (CKD) 77.8 (60.0-200.0); BUN/Creat Ratio 16.78 Ratio (12.00-20.00); Blood Urea Nitrogen 15.1 mg/dL (9.0-27.0); Calcium 9.2 mg/dL (8.7-10.3); Non-African American GFR(CKD) 67.1 (60.0-200.0)
[2022-10-05 11:27] VITALS: BP 128/87; RESP 20; TEMP 98.3
[2022-10-05 13:31] VITALS: PULSE 120
--- NOTE | 2022-10-05 13:56 | P.PN ---
Subjective Progress Note Date: 10/05/22 This is a 67-year-old patient who previously followed in our office with Dr. Rodriguez however most recently has been following at [facility]. She has a history of persistent atrial fibrillation, nonischemic cardiomyopathy, hypertension, hyperlipidemia and CAD. She has not been seen by set rider in over 2 years. She has been complaining of progressively worsening shortness of breath, orthopnea and PND as well as edema and weight gain. She is apparently not been taking her diuretic at home she finds it very difficult to get out of her chair and has been having accidents. Upon presentation chest x-ray showed right lower lobe atelectasis or pneumonia. Heart rates have been elevated she continues to be in atrial fibrillation and her set rider at [facility] previously recommended rate control. She had been evaluated by Dr. Acevedo in the past and recommended Tikosyn loading however she declined this option. Her lab values on admission BUN 15, creatinine 0.83, troponins negative 3. NT proBNP was 808. She has been started on IV Lasix. She is overall feeling a bit better since she has diuresed some. Heart rates remain 90s to low 100s. Denies any complaints of chest discomfort, dizziness or lightheadedness. 10/03/2022 Upon examination the patient is resting currently in bed. She appears to be breathing more comfortably. She continues to complain of orthopnea and significant edema. Continues to complain of exertional dyspnea. Renal function is relatively stable. Vital signs are stable. She continues on IV Lasix and was started on Aldactone yesterday. Echocardiogram with Doppler study was completed this morning and results are pending. 10/04/2022 The patient was seen and examined resting in bed. She is somewhat tearful this morning worried about finding help for home. She overall feels her breathing is improving. She continues to have some dyspnea but better. She also feels her edema has improved and she's been denies increasing well. She is concerned abo ut continuing on IV Lasix due to her potassium as she has been putting out large amounts of urine. No labs available from this morning. Echocardiogram with Doppler study was stable with an ejection fraction of 40-45%, mild MR and mild TR. 10/05/2022 Patient states her breathing is better. She states she does have sudden difficulty breathing that happened suddenly and briefly. She was transitioned yesterday to oral Lasix. Heart rate 98, blood pressure 143/84, pulse ox 94%. Urine output 1150 ML's. Weight has not been recorded. Repeat blood work reveals potassium 4, BUN 15 and creatinine 0.9. PHYSICAL EXAMINATION HEENT: Head is atraumatic, normocephalic. Pupils are equal, round. Sclerae anicteric. Conjunctivae are clear. Mucous membranes of the mouth are moist. Neck is supple. There is no elevated jugular venous pressure. CHEST EXAMINATION: Lungs reveal diminished air entry bilaterally. No wheezes, crackles, or rhonchi. Respirations even and nonlabored. HEART EXAMINATION: Heart irregular rate and rhythm, positive S1 and S2. No S3. No S4. No clicks, rubs or murmurs. ABDOMEN: Soft, obese nontender. Bowel sounds are heard. No organomegaly noted. EXTREMITIES: 1+ peripheral pulses with evidence of mild peripheral edema, improving and no calf tenderness noted. NEUROLOGIC EXAMINATION: Patient is awake, alert and oriented x3, tearful. ASSESSMENT #1 acute on chronic systolic congestive heart failure #2 nonischemic cardiomyopathy #3 chronic persistent atrial fibrillation #4 hypertension #5 hyperlipidemia Plan: Continue patient on oral Lasix Continue carvedilol, lisinopril and Aldactone and Farxiga. Cardiology will follow on an as-needed basis. Please reconsult if any new concerns. BENEFIT AUTHORIZER note has been reviewed, I agree with a documented findings and plan of care. Patient was seen and examined. Objective - Vital Signs Vital signs: Vital Signs Temp 97.9 F 10/05/22 04:30 Pulse 98 10/05/22 04:30 Resp 18 10/05/22 04:30 BP 143/84 10/05/22 04:30 Pulse Ox 94 L 10/05/22 04:30 FiO2 Intake & Output 10/04/22 10/05/22 10/05/22 18:59 06:59 18:59 Intake Total 700 Output Total 1050 2800 Balance -1050 -2100 Intake: Oral 700 Output: Urine 1050 2800 Other: Voiding Method External Catheter Bedside Commode Diaper External Catheter # Voids 2 - Labs CBC & Chem 7: 10/01/22 18:20 10/05/22 05:42 Labs: Abnormal Lab Results - Last 24 Hours (Table) 10/04/22 10/05/22 Range/Units 12:24 08:44 Carbon Dioxide 33 H (22-30) mmol/L Glucose 123 H (74-99) mg/dL POC Glucose (mg/dL) 136 H (70-110) mg/dL
--- NOTE | 2022-10-05 14:50 | P.DS ---
Providers Date of admission: 10/01/22 20:28 Attending physician: Alton Muller Consults: 10/01/22 20:28 Consult Physician Routine Consulting Provider: Vladimir Acevedo Consult Reason/Comments: Atrial fibrillation rapid ventricular response Do you want consulting provider notified?: Yes Primary care physician: Bull Montes Hospital Course: Final Diagnosis -Congestive heart failure, with acute exacerbation, chronic systolic dysfunction ejection fraction of 40-45%. Nonischemic cardiomyopathy. Patient has been transitioned to oral lasix. CHF exacerbation is secondary to physical limitations which will be addressed with hospital bed another supplies, PT and OT were consulted for that reason -Chronic persistent atrial fibrillation for which patient is on Xarelto and Coreg. -Hypertension -Hyperlipidemia -Atelectasis for which we'll use incentive spirometry -Obesity sleep apnea and uses CPAP machine at home which will be continued -Hypothyroidism -Morbid Obesity -Osteoarthritis -General medical Debility secondary to multiple medical comorbidites and also obesity limiting mobility Discharge Disposition Patient is stable for discharge home with home healthcare services. She has been discharged on oral Lasix twice a day, anticoagulant with salt and continues on carvedilol. Lisinopril has been decreased to 10 mg daily. Continue with CPAP use. Patient is recommended to follow up with her primary care Dr. Montes in 1-[address] Rodriguez in 1-2 weeks, she is recommended to repeat labs in 2-3 days. Patient does require additional medical equipment. She requires a bedside commode because she is room confined secondary to morbid obesity, degenerative arthritis and chronic back pain which limits her mobility significantly. Patient has a medical diagnosis of congestive heart failure requiring oral Lasix twice a day which causes frequent urination. The beneficiary has a medical condition of chronic back pain and degenerative arthritis which does require positioning of the body in ways that is not feasible with an ordinary bed. The head of the bed must be elevated at more than 30 degrees most of the time to alleviate pain and pressure. The beneficiary also has medical history of obesity sleep apnea and congestive heart failure which requires the head of the bed to elevated at more than 30 degrees most of the time to alleviate dyspnea which is caused by combination of morbid obesity, congestive heart failure and obesity sleep apnea. Hospital Course Patient is a pleasant 65-year-old female came in with complains of shortness of breath orthopnea and the weight gain, chest x-ray showed right lower lobe atelectasis. BNP is around 808. Patient doesn't usually use oxygen at home presently requiring oxygen. Patient misses her diuretic doses occasionally because of her inability to get to bathroom because of nonavailability of appropriate tools at home, including not having a hospital bed or bedside commode. Patient denied any fever chills. Doesn't have any leukocytosis, patient is afebrile. Patient has a history of chronic persistent atrial fibrillation for which she is on Xarelto and Coreg, history of hypertension, hyperlipidemia, obesity sleep apnea with CPAP use, hypothyroidism, osteoarthritis. She is admitted to the hospital with acute exacerbation of systolic heart failure is also has nonischemic cardiac myopathy with an EF of 40-45%. She was started on IV Lasix and transitioned to oral Lasix with good diuresis. Her shortness of breath had improved. kidney function has remained stable with a creatinine of 0.9, blood glucose able, troponin was negative 3, she had lipid panel checked which was essentially unremarkable. Patient does require oxygen via nasal cannula at 2 L for home discharge. She had dropped to 80% on room air with ambulation. She has remained afebrile, heart rate is in the 90s, blood pressure 128/87. She was evaluated by cardiology and cleared for discharge. 10/05/2022 Patient today and beginning in the room. Shortness of breath has improved. She continues a significant mobility issues. Patient will be discharged today with additional medical treatment including a hospital bed as well as bedside commode . She is discharged on Lasix twice a day. Her lungs are Clear, S1-S2 auscultated, she continues in atrial fibrillation with rate control. She had a bowel movement yesterday. No complaints of fever or chills. No nausea vomiting or diarrhea. She denies any dizziness or lightheadedness. Focal neurological exam is negative, she is alert 3 with generalized weakness. Is hemodynamically stable, afebrile, heart rate 94, blood pressure 128/87, 95% on room air at rest and 80% on room air with activity she is discharged on 2 L nasal cannula oxygen. Total time taken in discharge planning greater than 35 minutes Please see medication reconciliation for list of current medication. Thank you for allowing us to participate in the care of this patient. The impression and plan of care has been dictated by Danielle Burrows, Nurse Practitioner as directed. Dr. Nathan MD I have performed a history and physical examination and medical decision making of this patient, discussed the same with the dictator, and agree with the dictators assessment and plan as written, documented as a scribe. Based on total visit time, I have performed more than 50% of this visit. Patient Condition at Discharge: Fair Plan - Discharge Summary New Discharge Prescriptions: New Spironolactone [Aldactone] 25 mg PO DAILY #30 tab Dapagliflozin Propanediol [Farxiga] 10 mg PO DAILY #30 tab lisinopriL [Zestril] 10 mg PO HS #30 tab Furosemide [Lasix] 40 mg PO BID@0900,1600 #60 tab Nitroglycerin Sl Tabs [Nitrostat] 0.4 mg SUBLINGUAL Q5M PRN #20 tab PRN Reason: Chest Pain Continue carvediloL 12.5 mg PO BID Levothyroxine Sodium [Synthroid] 200 mcg PO DAILY metFORMIN HCL [Glucophage] 850 mg PO DAILY Levothyroxine Sodium [Synthroid] 50 mcg PO DAILY Dulaglutide [Trulicity] 1.5 mg SQ DONALDSON Budesonide/Formoterol Fumarate [Symbicort 160-4.5 Mcg Inhaler] 2 puff INHALATION RT-BID PRN PRN Reason: Shortness Of Breath Rivaroxaban [Xarelto] 20 mg PO HS Discontinued lisinopriL [Zestril] 20 mg PO DAILY lisinopriL [Zestril] 20 mg PO HS PRN PRN Reason: Blood Pressure Discharge Medication List Levothyroxine Sodium [Synthroid] 200 mcg PO DAILY 06/30/19 [History] carvediloL 12.5 mg PO BID 06/30/19 [History] metFORMIN HCL [Glucophage] 850 mg PO DAILY 09/20/19 [History] Budesonide/Formoterol Fumarate [Symbicort 160-4.5 Mcg Inhaler] 2 puff INHALATION RT-BID PRN 10/01/22 [History] Dulaglutide [Trulicity] 1.5 mg SQ DONALDSON 10/01/22 [History] Levothyroxine Sodium [Synthroid] 50 mcg PO DAILY 10/01/22 [History] Rivaroxaban [Xarelto] 20 mg PO HS 10/01/22 [History] Dapagliflozin Propanediol [Farxiga] 10 mg PO DAILY #30 tab 10/05/22 [Rx] Furosemide [Lasix] 40 mg PO BID@0900,1600 #60 tab 10/05/22 [Rx] Nitroglycerin Sl Tabs [Nitrostat] 0.4 mg SUBLINGUAL Q5M PRN #20 tab 10/05/22 [Rx] Spironolactone [Aldactone] 25 mg PO DAILY #30 tab 10/05/22 [Rx] lisinopriL [Zestril] 10 mg PO HS #30 tab 10/05/22 [Rx] Follow up Appointment(s)/Referral(s): Bull Montes MD [Primary Care Provider] - 1-2 days [facility] [NON-STAFF] - 1 Week Mckenzie Rodriguez MD [STAFF PHYSICIAN] - 1 Week Ambulatory/Diagnostic Orders: Basic Metabolic Panel [LAB.AMB] Time Frame: 3 Days, Location: None Selected Complete Blood Count w/diff [LAB.AMB] Location: None Selected Activity/Diet/Wound Care/Special Instructions: Continue oral lasix and prescribed Monitor blood pressure Follow up with cardiology Follow up with Dr. Montes Discharge Disposition: HOME WITH HOME HEALTH SERVICES
== END 2022-10-05 17:20 | disposition home or self-care (01) | DRG 291 ==
LOC: EC 17:20 → 3SCARD 20:28 → 5NMEDONC 10-02 12:13
PROVIDERS: ADMIT Hospitalist; ATTEND Hospitalist
DX: I11.0 Hypertensive heart disease with heart failure (principal); I50.23 Acute on chronic systolic (congestive) heart failure; I48.19 Other persistent atrial fibrillation; Z68.44 Body mass index [BMI] 60.0-69.9, adult; J98.11 Atelectasis; E03.9 Hypothyroidism, unspecified; E66.01 Morbid (severe) obesity due to excess calories; J45.909 Unspecified asthma, uncomplicated; I27.20 Pulmonary hypertension, unspecified; I42.8 Other cardiomyopathies; I25.10 Atherosclerotic heart disease of native coronary artery without angina pectoris; G89.29 Other chronic pain; E78.5 Hyperlipidemia, unspecified; G47.30 Sleep apnea, unspecified; R00.1 Bradycardia, unspecified; T50.2X6A Underdosing of carbonic-anhydrase inhibitors, benzothiadiazides and other diuretics, initial encounter; M19.90 Unspecified osteoarthritis, unspecified site; R53.81 Other malaise; I08.3 Combined rheumatic disorders of mitral, aortic and tricuspid valves; M48.00 Spinal stenosis, site unspecified; Z79.01 Long term (current) use of anticoagulants; Z79.899 Other long term (current) drug therapy; Z79.890 Hormone replacement therapy; Z79.84 Long term (current) use of oral hypoglycemic drugs; Z79.51 Long term (current) use of inhaled steroids; Z91.048 Other nonmedicinal substance allergy status; Z88.5 Allergy status to narcotic agent; Z91.041 Radiographic dye allergy status; Z91.018 Allergy to other foods; Z91.011 Allergy to milk products; Z85.42 Personal history of malignant neoplasm of other parts of uterus; Z91.128 Patient's intentional underdosing of medication regimen for other reason
CPT/HCPCS: 36415; 71045; 80048; 80053; 80061; 82009; 83605; 83880; 84484; 85025; 85610; 85730; 93005; 93306; 94640; 94760; 96361; 96365; 96366; 96374; 96375; 96376; 99285; 99291